=== PATIENT | female | born 1975 | race Caucasian/White ===

== ENCOUNTER → 2019-06-26 | Outpatient (CLI) | payer BC | END | disposition home or self-care (01) | LOC: SURGPAT 10:00 → SURG 14:58 → EDSTATUS 06-30 07:30 | PROVIDERS: ATTEND Internal Medicine Gastroenterology | DX: Z01.812 Encounter for preprocedural laboratory examination (principal); Z11.59 Encounter for screening for other viral diseases; K92.1 Melena; R19.7 Diarrhea, unspecified | CPT/HCPCS: 36415; 87635 ==

== ENCOUNTER → 2019-06-30 | Day surgery (SDC) | payer BC ==
[~2019-06-30] MED LIST: IV RINGERS,LACTATED 1000ML 1,000 ML IV SCH; PIPERACILLIN/TAZOBACTAM 3.375 GM in IV NORMAL SALINE 50ML 50 ML IV ONE; PROPOFOL 10 MG/ML (20ML) VIAL. IV ONE
[2019-06-30 08:47] VITALS: BP 131/63
--- NOTE | 2019-07-03 13:07 | PATHOLOGY ---
[facility] Accession Number: [id number] . 01 Material submitted: . PART A: duodenum - DUODENAL BX PART B: cecum - CECAL POLYP PART C: colon - RANDOM COLON BX . 01 Clinical history: . abd pain, diarrhea . 02 Diagnosis: A. Duodenal biopsies: - No significant pathologic abnormalities. . B. Colon biopsies, cecal polyp: - Tubular adenoma. . C. Colonic mucosa, random colon biopsies: - Suggestive of microscopic (lymphocytic) colitis. (JPM:ruthann; 07/03/2019) [facility] [place] 07/03/2019 0959 Local . 02 Comment: Sections of the duodenal biopsy reveal multiple segments of duodenal and small intestine mucosa. Where best oriented, the mucosal villi show no sprue-like changes or significant inflammatory changes. . Sections of the cecal biopsy reveal a tubular adenoma showing no high-grade dysplasia or evidence of malignancy. . Sections of the random colon biopsy reveal multiple segments of colonic mucosa. There is a mild chronic active colitis without crypt architectural distortion or collagen deposition. Intraepithelial lymphocytes are increased. These changes are consistent with microscopic (lymphocytic) colitis. However, the diagnosis requires clinico- pathologic correlation. (JPM:ruthann; 07/03/2019) . 02 Electronically signed: . Aidan Máruqez MD, Pathologist NPI- [id number] . 01 Gross description: . A. The specimen is received in formalin labeled "DoveFranny martinez, duodenal BX rule out sprue" and consists of multiple fragments of pink-lopez tissue measuring 1.6 x 0.6 x 0.2 cm in aggregate which are entirely submitted in A1. . B. The specimen is received in formalin labeled "Dove, Franny, cecal polyp" and consists of 2 fragments of pink-lopez tissue measuring 0.2 x 0.2 x 0.2 cm and 0.4 x 0.3 x 0.2 cm which are entirely submitted in B1. . C. The specimen is received in formalin labeled "Dove, Franny, random colon BX" and consists of multiple fragments of pink-lopez tissue measuring 1.4 x 0.9 x 0.2 cm in aggregate which are entirely submitted in C1. (EDYTA; 06/30/2019) JFQ/JFQ 06/30/2019 1458 Local . 02 Pathologist provided ICD-10: D12.0, R10.9, R19.7 . 02 CPT . 047019, [id number], [id number] Specimen Comment: A courtesy copy of this report has been sent to [phone] Specimen Comment: Report sent to Performed at: 01 [facility] [address] [id number] MD Kd Barcenas MD Phone: [phone] Performed at: [address] [facility] [address] [place], [place] [id number] MD Aidan Márquez MD Phone: [phone]
== END | disposition home or self-care (01) ==
LOC: ENDOS 06:25
PROVIDERS: ATTEND Internal Medicine Gastroenterology
DX: R19.7 Diarrhea, unspecified (principal); D12.0 Benign neoplasm of cecum; K57.30 Diverticulosis of large intestine without perforation or abscess without bleeding; K31.89 Other diseases of stomach and duodenum; F15.90 Other stimulant use, unspecified, uncomplicated; K64.0 First degree hemorrhoids; F17.210 Nicotine dependence, cigarettes, uncomplicated; Z88.1 Allergy status to other antibiotic agents; Z88.8 Allergy status to other drugs, medicaments and biological substances; Z86.010 Personal history of colon polyps; Z72.89 Other problems related to lifestyle; Z90.49 Acquired absence of other specified parts of digestive tract
CPT/HCPCS: 43239; 45380; 81025; 88305; J2704

== ENCOUNTER 2019-07-04 15:51 | Inpatient (IN) | payer BC ==
[~2019-07-04] VITALS: Ht 162.6 cm; Wt 68.0 kg
[2019-07-04] MEDS ORDERED: ONDANSETRON PF 4 MG/2 ML VIAL. IVP ONE (16:45)
[2019-07-04] MEDS ORDERED: MORPHINE SULFATE 10 MG/ML VIAL. IV ONE (16:45)
[2019-07-04 17:19] LABS: BASO % 0 % (0-3); EOS # 0.1 x10^3/uL (0.0-0.7); EOS % 1 % (0-3); HEMATOCRIT 47.1 % (36.0-47.0); HEMOGLOBIN 16.1 g/dL (12.0-15.5); LYMPH # 1.5 x10^3/uL (1.0-4.8); LYMPH % 17 % (24-48); MEAN CORPUSCULAR HEMOGLOBIN 31 pg (25-35); MEAN CORPUSCULAR HGB CONC 34 g/dL (31-37); MEAN CORPUSCULAR VOLUME 92 fL (79-100); MONO # 0.7 x10^3/uL (0.0-1.1); MONO % 8 % (0-9); NEUT # 6.3 x10^3/uL (1.8-7.7); NEUT % 73 % (31-73); PLATELET COUNT 300 x10^3/uL (140-400); RED BLOOD COUNT 5.13 x10^6/uL (3.50-5.40); RED CELL DISTRIBUTION WIDTH 13.3 % (11.5-14.5); WHITE BLOOD COUNT 8.6 x10^3/uL (4.0-11.0)
[2019-07-04 17:28] LABS: CLARITY,URINE HAZY; COLOR,URINE YELLOW; SQUAMOUS EPITHELIAL CELL,UR MANY /LPF
[2019-07-04 17:29] LABS: BILIRUBIN,URINE NEGATIVE (NEG)
[2019-07-04 17:30] LABS: AMORPHOUS SEDIMENT,UR PRESENT /HPF; BACTERIA,URINE MOD /HPF (0-FEW); NITRITE,URINE NEGATIVE (NEG); PROTEIN,URINE TRACE mg/dL (NEG-TRACE); UROBILINOGEN,URINE 0.2 mg/dL (0.2 mg/dL)
[2019-07-04 17:33] LABS: BARBITURATES NEG (NEG); BENZODIAZEPINES NEG (NEG); CANNABINOIDS NEG (NEG); COCAINE NEG (NEG); METHADONE NEG (NEG); OPIATES NEG (NEG); PHENCYCLIDINE NEG (NEG)
[2019-07-04 17:40] LABS: AMPHETAMINE/METHAMPHETAMINE NEG (NEG)
[2019-07-04 17:40] LABS: CALCIUM 8.8 mg/dL (8.5-10.1); CREATININE 0.7 mg/dL (0.6-1.0); GFR 91.3; POTASSIUM 3.7 mmol/L (3.5-5.1)
[2019-07-04] MEDS ORDERED: IOHEXOL 300 MG/ML 100ML VIAL. IV ONE (17:45)
[2019-07-04 17:46] LABS: ALBUMIN 3.9 g/dL (3.4-5.0); ALBUMIN/GLOBULIN RATIO 1.2 (1.0-1.7); TOTAL BILIRUBIN 1.2 mg/dL (0.2-1.0); TOTAL PROTEIN 7.1 g/dL (6.4-8.2)
[2019-07-04] MEDS ORDERED: CONTRAST GIVEN. MC PRN (18:00)
--- NOTE | 2019-07-04 18:20 | RAD ---
CT abdomen pelvis with contrast dated 07/04/2019. No comparison available. CLINICAL INDICATION: Chronic diarrhea and abdominal pain for one day. TECHNIQUE: Contiguous axial imaging the abdomen and pelvis performed after the administration of 75 cc Omnipaque 300. One or more of the following individualized dose reduction techniques were utilized for this examination: 1. Automated exposure control 2. Adjustment of the mA and/or kV according to patient size 3. Use of iterative reconstruction technique. FINDINGS: Limited images of lung bases are clear. Heart size within normal limits. No pleural or pericardial effusion. Liver, spleen, pancreas, adrenal glands and kidneys are unremarkable. No hydronephrosis. The gallbladder surgically absent. There is a ileocolonic intussusception in the right upper quadrant. No definite bleed mass. The appendix is normal in caliber. The ileocolic vessels are displaced into the intussusceptum no adjacent fluid collection or pneumatosis. No portal venous gas or pneumoperitoneum. GI tract is otherwise normal in caliber. No significant small bowel dilation. No wall thickening or mesenteric inflammatory stranding. No lymphadenopathy or ascites. Images of the pelvis show nondistended urinary bladder. Uterus and adnexa are unremarkable. Small amount of free fluid. No pelvic lymphadenopathy. Bone windows show no acute findings. IMPRESSION: 1. There is a ileocolonic intussusception in the right lower quadrant. No definite bleed mass. No significant proximal small bowel dilation to suggest obstruction. 2. Small amount of free fluid. No pneumoperitoneum or pneumatosis. 3. Otherwise no significant abnormality. 4. Status post cholecystectomy. Electronically signed by: Filemon Whitfield MD (07/04/2019 6:17 PM) TRUNG
--- NOTE | 2019-07-04 19:28 | PHYS DOC ---
Past Medical History Past Medical History: Diverticulitis Past Surgical History: Cholecystectomy Additional Past Surgical Histo: d&c X2, HEMMORHOIDECTOMY Smoking Status: Current Every Day Smoker Alcohol Use: Occasionally General Adult EDM: Chief Complaint: ABDOMINAL PAIN HPI: HPI: Patient is a 44 year old female with history of diverticulitis, cholecystectomy, who presents to the ED today complaining of 5 out of 10 epigastric abdominal pain that has been going on since yesterday. Patient sta erum this pain does not feel similar to her chronic abdominal pain. Denies any nausea vomiting. Denies any exacerbating or relieving factors to her pain. She states she has history of chronic diarrhea, she states she had a colonoscopy done on Wednesday which is 4 days ago but she does not know results. Denies any bloody stools. She is also complaining of vomiting. She states her last bowel movement was a couple minutes ago on arrival to the ED. Review of Systems: Review of Systems: Constitutional: Denies fever or chills. [] Eyes: Denies change in visual acuity. [] HENT: Denies nasal congestion or sore throat. [] Respiratory: Denies cough or shortness of breath. [] Cardiovascular: Denies chest pain or edema. [] GI: Reports epigastric abdominal pain, chronic diarrhea denies nausea, vomiting, bloody stools : Denies dysuria. [] Musculoskeletal: Denies back pain or joint pain. [] Integument: Denies rash. [] Neurologic: Denies headache, focal weakness or sensory changes. [] Psychiatric: Denies depression or anxiety. [] Heart Score: Risk Factors: Risk Factors: DM, Current or recent (<one month) smoker, HTN, HLP, family history of CAD, obesity. Risk Scores: Score 0 - 3: 2.5% MACE over next 6 weeks - Discharge Home Score 4 - 6: 20.3% MACE over next 6 weeks - Admit for Clinical Observation Score 7 - 10: 72.7% MACE over next 6 weeks - Early Invasive Strategies Current Medications: Current Medications Medications (Trade) Dose Ordered Sig/Rommel Start Time Stop Time Status Last Admin Dose Admin Info (CONTRAST GIVEN -- Rx MONITORING) 1 each PRN DAILY PRN 07/04/19 18:00 07/06/19 17:59 Iohexol (Omnipaque 300 Mg/ml) 75 ml 1X ONCE 07/04/19 17:45 07/04/19 17:46 DC 07/04/19 18:06 75 ML Morphine Sulfate (Morphine Sulfate) 5 mg 1X ONCE 07/04/19 16:45 07/04/19 16:46 DC 07/04/19 17:03 5 MG Ondansetron HCl (Zofran) 4 mg 1X ONCE 07/04/19 16:45 07/04/19 16:46 DC 07/04/19 17:02 4 MG Allergies: Allergies: Allergies Coded Allergies Type Severity Reaction Last Updated Verified Sulfa (Sulfonamide Antibiotics) Allergy Severe 06/30/19 Yes cefaclor Allergy Severe Hives 06/30/19 Yes Physical Exam: PE: Constitutional: Well developed, well nourished, no acute distress, non-toxic appearance. [] HENT: Normocephalic, atraumatic, bilateral external ears normal, oropharynx moist, no oral exudates, nose normal. [] Eyes: PERRLA, EOMI, conjunctiva normal, no discharge. [] Neck: Normal range of motion, no tenderness, supple, no stridor. [] Cardiovascular:Heart rate regular rhythm, no murmur [] Lungs & Thorax: Bilateral breath sounds clear to auscultation [] Abdomen: Bowel sounds normal, soft, mild epigastric tenderness on exam, no right upper quadrant or right lower quadrant tenderness, patient is febrile in the epigastric region no masses, no pulsatile masses. [] Skin: Warm, dry, no erythema, no rash. [] Back: No tenderness, no CVA tenderness. [] Extremities: No tenderness, no cyanosis, no clubbing, ROM intact, no edema. [] Neurologic: Alert and oriented X 3, normal motor function, normal sensory function, no focal deficits noted. [] Psychologic: Flat affect, appears tearful Current Patient Data: Labs: Laboratory Tests Test 07/04/19 15:58 07/04/19 16:17 07/04/19 16:55 07/04/19 17:20 Urine Collection Type Unknown Urine Color Yellow Urine Clarity Hazy Urine pH 6.0 (<5.0-8.0) Urine Specific [place] >=1.030 (1.000-1.030) Urine Protein Trace mg/dL (NEG-TRACE) Urine Glucose (UA) Negative mg/dL (NEG) Urine Ketones (Stick) Negative mg/dL (NEG) Urine Blood Moderate (NEG) Urine Nitrite Negative (NEG) Urine Bilirubin Negative (NEG) Urine Urobilinogen Dipstick 0.2 mg/dL (0.2 mg/dL) Urine Leukocyte Esterase Moderate (NEG) Urine RBC 6-10 /HPF (0-2) Urine WBC 5-10 /HPF (0-4) Urine Squamous Epithelial Cells Many /LPF Urine Amorphous Sediment Present /HPF Urine Bacteria Mod /HPF (0-FEW) Urine Mucus Mod /LPF Urine Opiates Screen Neg (NEG) Urine Methadone Screen Neg (NEG) Urine Barbiturates Neg (NEG) Urine Phencyclidine Screen Neg (NEG) Urine Amphetamine/Methamphetamine Neg (NEG) Urine Benzodiazepines Screen Neg (NEG) Urine Cocaine Screen Neg (NEG) Urine Cannabinoids Screen Neg (NEG) Urine Ethyl Alcohol Neg (NEG) POC Urine HCG, Qualitative Hcg negative (Negative) White Blood Count 8.6 x10^3/uL (4.0-11.0) Red Blood Count 5.13 x10^6/uL (3.50-5.40) Hemoglobin 16.1 g/dL (12.0-15.5) H Hematocrit 47.1 % (36.0-47.0) H Mean Corpuscular Volume 92 fL (79-100) Mean Corpuscular Hemoglobin 31 pg (25-35) Mean Corpuscular Hemoglobin Concent 34 g/dL (31-37) Red Cell Distribution Width 13.3 % (11.5-14.5) Platelet Count 300 x10^3/uL (140-400) Neutrophils (%) (Auto) 73 % (31-73) Lymphocytes (%) (Auto) 17 % (24-48) L Monocytes (%) (Auto) 8 % (0-9) Eosinophils (%) (Auto) 1 % (0-3) Basophils (%) (Auto) 0 % (0-3) Neutrophils # (Auto) 6.3 x10^3/uL (1.8-7.7) Lymphocytes # (Auto) 1.5 x10^3/uL (1.0-4.8) Monocytes # (Auto) 0.7 x10^3/uL (0.0-1.1) Eosinophils # (Auto) 0.1 x10^3/uL (0.0-0.7) Basophils # (Auto) 0.0 x10^3/uL (0.0-0.2) Sodium Level 136 mmol/L (136-145) Potassium Level 3.7 mmol/L (3.5-5.1) Chloride Level 102 mmol/L (98-107) Carbon Dioxide Level 23 mmol/L (21-32) Anion Gap 11 (6-14) Blood Urea Nitrogen 20 mg/dL (7-20) Creatinine 0.7 mg/dL (0.6-1.0) Estimated GFR (Cockcroft-Gault) 91.3 BUN/Creatinine Ratio 29 (6-20) H Glucose Level 88 mg/dL (70-99) Calcium Level 8.8 mg/dL (8.5-10.1) Total Bilirubin 1.2 mg/dL (0.2-1.0) H Aspartate Amino Transferase (AST) 15 U/L (15-37) Alanine Aminotransferase (ALT) 22 U/L (14-59) Alkaline Phosphatase 39 U/L (46-116) L Total Protein 7.1 g/dL (6.4-8.2) Albumin 3.9 g/dL (3.4-5.0) Albumin/Globulin Ratio 1.2 (1.0-1.7) Lipase 133 U/L (73-393) Ethyl Alcohol Level < 10 mg/dL (0-10) Laboratory Tests 07/04/19 16:55 Laboratory Tests 07/04/19 17:20 Vital Signs: Vital Signs Date Time Temp Pulse Resp B/P (MAP) Pulse Ox O2 Delivery O2 Flow Rate FiO2 07/04/19 17:47 102 21 141/66 (91) 98 Room Air 07/04/19 16:33 98.0 98.0 EKG: EKG: [] Radiology/Procedures: Radiology/Procedures: []PROCEDURE: CT ABD PELV W/ IV CONTRST ONLY CT abdomen pelvis with contrast dated 07/04/2019. No comparison available. CLINICAL INDICATION: Chronic diarrhea and abdominal pain for one day. TECHNIQUE: Contiguous axial imaging the abdomen and pelvis performed after the administration of 75 cc Omnipaque 300. One or more of the following individualized dose reduction techniques were utilized for this examination: 1. Automated exposure control 2. Adjustment of the mA and/or kV according to patient size 3. Use of iterative reconstruction technique. FINDINGS: Limited images of lung bases are clear. Heart size within normal limits. No pleural or pericardial effusion. Liver, spleen, pancreas, adrenal glands and kidneys are unremarkable. No hydronephrosis. The gallbladder surgically absent. There is a ileocolonic intussusception in the right upper quadrant. No definite bleed mass. The appendix is normal in caliber. The ileocolic vessels are displaced into the intussusceptum no adjacent fluid collection or pneumatosis. No portal venous gas or pneumoperitoneum. GI tract is otherwise normal in caliber. No significant small bowel dilation. No wall thickening or mesenteric inflammatory stranding. No lymphadenopathy or ascites. Images of the pelvis show nondistended urinary bladder. Uterus and adnexa are unremarkable. Small amount of free fluid. No pelvic lymphadenopathy. Bone windows show no acute findings. IMPRESSION: 1. There is a ileocolonic intussusception in the right lower quadrant. No definite bleed mass. No significant proximal small bowel dilation to suggest obstruction. 2. Small amount of free fluid. No pneumoperitoneum or pneumatosis. 3. Otherwise no significant abnormality. 4. Status post cholecystectomy. Electronically signed by: Filemon Whitfield MD (07/04/2019 6:17 PM) [facility] [place] DICTATED and SIGNED BY: FILEMON WHITFIELD MD DATE: 07/04/191816 Course & Med Decision Making: Course & Med Decision Making Pertinent Labs and Imaging studies reviewed. (See chart for details) This is a 44-year-old female patient presenting to the ED today complaining of epigastric abdominal pain that began yesterday. Patient has history of chronic abdominal pain as well as chronic diarrhea, she reports having a colonoscopy 4 days ago but does not know the results. CBC with a normal WBC, CMP with nothing acute. Urine analysis noted for UTI. CT of the abdomen and pelvic was noted for ileocolonic intussusception in the right lower quadrant. No definite bleed mass. No significant proximal small bowel dilation to suggest obstruction. Small amount of free fluid. No pneumoperitoneum or pneumatosis. Otherwise no significant abnormality. 2019 Dr. Kern in the Ed seeing patient [address] Garcia who accepted patient for admission Marisela Disclaimer: Marisela Disclaimer: This electronic medical record was generated, in whole or in part, using a voice recognition dictation system. Departure Departure Impression: Primary Impression: Abdominal pain Qualified Codes: R10.13 - Epigastric pain Additional Impression: Intussusception intestine Disposition: 09 ADMITTED INPATIENT Condition: STABLE Referrals: NO PCP (PCP) LYNSEY YAO APRN July 04, 2019 19:27
[2019-07-04] MEDS ORDERED: HYDROmorphone 2 MG/ML VIAL IV ONE (19:45)
--- NOTE | 2019-07-04 20:43 | PDOC2 ---
CONSULT Date of Consult Date of Consult DATE: 07/04/19 TIME: 20:34 Reason for Consult Reason for Consult: ileo-colic intususseption Referring Physician Referring Physician: SALVADOR Identification/Chief Complaint Chief Complaint right sided abdominal pain Source Source: Chart review, Patient History of Present Illness Reason for Visit: Franny is a 44 yo female who four days ago had an EGD and a colonoscopy with biopsy of a cecal polyp. She had increasing right sided abdominal pain unlike the chronic pain issues she has dealt with before so she came to the ED. CT done here shows an ileo-colic intersusseption. Past Medical History Past Medical History endometriosis Cardiovascular: No pertinent hx Pulmonary: No pertinent hx Renal/: No pertinent hx Past Surgical History Past Surgical History: Other (laparoscopy for endometriosis and biopsy of her "pelvic organs", all benign findings) Social History 1 pack per day Current Medications Current Medications only home meds are multiple vitamin and melatonin Current Medications Morphine Sulfate (Morphine Sulfate) 5 mg 1X ONCE IV Last administered on 07/04/19at 17:03; Start 07/04/19 at 16:45; Stop 07/04/19 at 16:46; Status DC Ondansetron HCl (Zofran) 4 mg 1X ONCE IVP Last administered on 07/04/19at 17:02; Start 07/04/19 at 16:45; Stop 07/04/19 at 16:46; Status DC Iohexol (Omnipaque 300 Mg/ml) 75 ml 1X ONCE IV Last administered on 07/04/19at 18:06; Start 07/04/19 at 17:45; Stop 07/04/19 at 17:46; Status DC Info (CONTRAST GIVEN -- Rx MONITORING) 1 each PRN DAILY PRN MC SEE COMMENTS; Start 07/04/19 at 18:00; Stop 07/06/19 at 17:59 Hydromorphone HCl (Dilaudid) 1 mg 1X ONCE IV Last administered on 07/04/19at 19:52; Start 07/04/19 at 19:45; Stop 07/04/19 at 19:46; Status DC Piperacillin Sod/ Tazobactam Sod 3.375 gm/Sodium Chloride 50 ml @ 100 mls/hr 1X ONCE IV ; Start 07/04/19 at 20:45; Stop 07/04/19 at 21:14 Active Scripts Active Reported No Known Medications Prior To Admisstion (Info) Each 1 Each DAILY Allergies Allergies: Coded Allergies: Sulfa (Sulfonamide Antibiotics) (Verified Allergy, Severe, 06/30/19) cefaclor (Verified Allergy, Severe, Hives, 06/30/19) ROS Gastrointestinal: Yes Nausea, Yes Abdominal Pain, Yes Melena Physical Exam General: Alert, mild distress HEENT: Atraumatic Lungs: Normal air movement Heart: Other (increased rate) Abdomen: Soft, Other (tender mass palpable on the right side) Skin: Other (warm, dry) Vitals VITALS Vital Signs Date Time Temp Pulse Resp B/P (MAP) Pulse Ox O2 Delivery O2 Flow Rate FiO2 07/04/19 19:52 Room Air 07/04/19 17:47 102 21 141/66 (91) 98 07/04/19 16:33 98.0 98.0 Labs Labs Laboratory Tests Test 07/04/19 15:58 07/04/19 16:17 07/04/19 16:55 07/04/19 17:20 Urine Collection Type Unknown Urine Color Yellow Urine Clarity Hazy Urine pH 6.0 (<5.0-8.0) Urine Specific [place] >=1.030 (1.000-1.030) Urine Protein Trace mg/dL (NEG-TRACE) Urine Glucose (UA) Negative mg/dL (NEG) Urine Ketones (Stick) Negative mg/dL (NEG) Urine Blood Moderate (NEG) Urine Nitrite Negative (NEG) Urine Bilirubin Negative (NEG) Urine Urobilinogen Dipstick 0.2 mg/dL (0.2 mg/dL) Urine Leukocyte Esterase Moderate (NEG) Urine RBC 6-10 /HPF (0-2) Urine WBC 5-10 /HPF (0-4) Urine Squamous Epithelial Cells Many /LPF Urine Amorphous Sediment Present /HPF Urine Bacteria Mod /HPF (0-FEW) Urine Mucus Mod /LPF Urine Opiates Screen Neg (NEG) Urine Methadone Screen Neg (NEG) Urine Barbiturates Neg (NEG) Urine Phencyclidine Screen Neg (NEG) Urine Amphetamine/Methamphetamine Neg (NEG) Urine Benzodiazepines Screen Neg (NEG) Urine Cocaine Screen Neg (NEG) Urine Cannabinoids Screen Neg (NEG) Urine Ethyl Alcohol Neg (NEG) Bedside Urine HCG, Qualitative Hcg negative (Negative) White Blood Count 8.6 x10^3/uL (4.0-11.0) Red Blood Count 5.13 x10^6/uL (3.50-5.40) Hemoglobin 16.1 g/dL (12.0-15.5) Hematocrit 47.1 % (36.0-47.0) Mean Corpuscular Volume 92 fL (79-100) Mean Corpuscular Hemoglobin 31 pg (25-35) Mean Corpuscular Hemoglobin Concent 34 g/dL (31-37) Red Cell Distribution Width 13.3 % (11.5-14.5) Platelet Count 300 x10^3/uL (140-400) Neutrophils (%) (Auto) 73 % (31-73) Lymphocytes (%) (Auto) 17 % (24-48) Monocytes (%) (Auto) 8 % (0-9) Eosinophils (%) (Auto) 1 % (0-3) Basophils (%) (Auto) 0 % (0-3) Neutrophils # (Auto) 6.3 x10^3/uL (1.8-7.7) Lymphocytes # (Auto) 1.5 x10^3/uL (1.0-4.8) Monocytes # (Auto) 0.7 x10^3/uL (0.0-1.1) Eosinophils # (Auto) 0.1 x10^3/uL (0.0-0.7) Basophils # (Auto) 0.0 x10^3/uL (0.0-0.2) Sodium Level 136 mmol/L (136-145) Potassium Level 3.7 mmol/L (3.5-5.1) Chloride Level 102 mmol/L (98-107) Carbon Dioxide Level 23 mmol/L (21-32) Anion Gap 11 (6-14) Blood Urea Nitrogen 20 mg/dL (7-20) Creatinine 0.7 mg/dL (0.6-1.0) Estimated GFR (Cockcroft-Gault) 91.3 BUN/Creatinine Ratio 29 (6-20) Glucose Level 88 mg/dL (70-99) Calcium Level 8.8 mg/dL (8.5-10.1) Total Bilirubin 1.2 mg/dL (0.2-1.0) Aspartate Amino Transf (AST/SGOT) 15 U/L (15-37) Alanine Aminotransferase (ALT/SGPT) 22 U/L (14-59) Alkaline Phosphatase 39 U/L (46-116) Total Protein 7.1 g/dL (6.4-8.2) Albumin 3.9 g/dL (3.4-5.0) Albumin/Globulin Ratio 1.2 (1.0-1.7) Lipase 133 U/L (73-393) Ethyl Alcohol Level < 10 mg/dL (0-10) Laboratory Tests Test 07/04/19 15:58 07/04/19 16:17 07/04/19 16:55 07/04/19 17:20 Urine Collection Type Unknown Urine Color Yellow Urine Clarity Hazy Urine pH 6.0 (<5.0-8.0) Urine Specific [place] >=1.030 (1.000-1.030) Urine Protein Trace mg/dL (NEG-TRACE) Urine Glucose (UA) Negative mg/dL (NEG) Urine Ketones (Stick) Negative mg/dL (NEG) Urine Blood Moderate (NEG) Urine Nitrite Negative (NEG) Urine Bilirubin Negative (NEG) Urine Urobilinogen Dipstick 0.2 mg/dL (0.2 mg/dL) Urine Leukocyte Esterase Moderate (NEG) Urine RBC 6-10 /HPF (0-2) Urine WBC 5-10 /HPF (0-4) Urine Squamous Epithelial Cells Many /LPF Urine Amorphous Sediment Present /HPF Urine Bacteria Mod /HPF (0-FEW) Urine Mucus Mod /LPF Urine Opiates Screen Neg (NEG) Urine Methadone Screen Neg (NEG) Urine Barbiturates Neg (NEG) Urine Phencyclidine Screen Neg (NEG) Urine Amphetamine/Methamphetamine Neg (NEG) Urine Benzodiazepines Screen Neg (NEG) Urine Cocaine Screen Neg (NEG) Urine Cannabinoids Screen Neg (NEG) Urine Ethyl Alcohol Neg (NEG) Bedside Urine HCG, Qualitative Hcg negative (Negative) White Blood Count 8.6 x10^3/uL (4.0-11.0) Red Blood Count 5.13 x10^6/uL (3.50-5.40) Hemoglobin 16.1 g/dL (12.0-15.5) Hematocrit 47.1 % (36.0-47.0) Mean Corpuscular Volume 92 fL (79-100) Mean Corpuscular Hemoglobin 31 pg (25-35) Mean Corpuscular Hemoglobin Concent 34 g/dL (31-37) Red Cell Distribution Width 13.3 % (11.5-14.5) Platelet Count 300 x10^3/uL (140-400) Neutrophils (%) (Auto) 73 % (31-73) Lymphocytes (%) (Auto) 17 % (24-48) Monocytes (%) (Auto) 8 % (0-9) Eosinophils (%) (Auto) 1 % (0-3) Basophils (%) (Auto) 0 % (0-3) Neutrophils # (Auto) 6.3 x10^3/uL (1.8-7.7) Lymphocytes # (Auto) 1.5 x10^3/uL (1.0-4.8) Monocytes # (Auto) 0.7 x10^3/uL (0.0-1.1) Eosinophils # (Auto) 0.1 x10^3/uL (0.0-0.7) Basophils # (Auto) 0.0 x10^3/uL (0.0-0.2) Sodium Level 136 mmol/L (136-145) Potassium Level 3.7 mmol/L (3.5-5.1) Chloride Level 102 mmol/L (98-107) Carbon Dioxide Level 23 mmol/L (21-32) Anion Gap 11 (6-14) Blood Urea Nitrogen 20 mg/dL (7-20) Creatinine 0.7 mg/dL (0.6-1.0) Estimated GFR (Cockcroft-Gault) 91.3 BUN/Creatinine Ratio 29 (6-20) Glucose Level 88 mg/dL (70-99) Calcium Level 8.8 mg/dL (8.5-10.1) Total Bilirubin 1.2 mg/dL (0.2-1.0) Aspartate Amino Transf (AST/SGOT) 15 U/L (15-37) Alanine Aminotransferase (ALT/SGPT) 22 U/L (14-59) Alkaline Phosphatase 39 U/L (46-116) Total Protein 7.1 g/dL (6.4-8.2) Albumin 3.9 g/dL (3.4-5.0) Albumin/Globulin Ratio 1.2 (1.0-1.7) Lipase 133 U/L (73-393) Ethyl Alcohol Level < 10 mg/dL (0-10) Images Images CT done this evening is reviewed Assessment/Plan Assessment/Plan ileo-colic intususseption recommended l/s exploration, probable right colon resection explained risks including but not limited to bleeding, infection,injury to surrounding structures requiring more surgery later, anastomotic leak she will proceed Thanks for consult NETO STONE MD July 04, 2019 20:43
[2019-07-04] MEDS ORDERED: PIPERACILLIN/TAZOBACTAM 3.375 GM in IV NORMAL SALINE 50ML 50 ML IV ONE (20:45)
[2019-07-04] MEDS ORDERED: ONDANSETRON PF 4 MG/2 ML VIAL. IV PRN ×2 (20:45→21:00)
[2019-07-04] MEDS ORDERED: IV NORMAL SALINE 1000ML BAG 1,000 ML IV ONE (20:45)
[2019-07-04] MEDS ORDERED: MORPHINE SULFATE 4 MG/ML VIAL. IV PRN (20:45)
[2019-07-04] MEDS ORDERED: LIDOCAINE 2% PF 5 ML VIAL. ONE (20:58)
[2019-07-04] MEDS ORDERED: fentaNYL PF VIAL 100 MCG/2 ML VIAL ONE ×2 (20:58→22:51)
[2019-07-04] MEDS ORDERED: ROCURONIUM 50 MG/5 ML VIAL. ONE (20:58)
[2019-07-04] MEDS ORDERED: PROPOFOL 10 MG/ML (20ML) VIAL. IV ONE (20:58)
[2019-07-04] MEDS ORDERED: IV RINGERS,LACTATED 1000ML 1,000 ML IV SCH (20:59)
[2019-07-04] MEDS ORDERED: LIDOCAINE 1% PF 2 ML VIAL. ID PRN (21:00)
[2019-07-04] MEDS ORDERED: HYDROmorphone 2 MG/ML VIAL IV PRN (21:00)
[2019-07-04] MEDS ORDERED: fentaNYL PF VIAL 100 MCG/2 ML VIAL IV PRN (21:00)
[2019-07-04] MEDS ORDERED: BUPIVACAINE-EPI 0.5%-1:200000 MPF 30 ML VIAL. ONE (21:30)
[2019-07-04] MEDS ORDERED: ACETAMINOPHEN 325 MG TABLET. PO PRN (21:30)
--- NOTE | 2019-07-04 22:07 | PDOC1 ---
History and Physical Date of Admission Date of Admission DATE: 07/04/19 TIME: 21:53 Identification/Chief Complaint Chief Complaint abdominal pain Problems: (1) Abdominal pain (2) Intussusception intestine Source Source: Chart review, Patient History of Present Illness History of Present Illness 44 year old CF with hx of cholecystectomy, endometriosis, chronic diarrhea, s/p EGD and colo with poly in cecum who presents with 24 hrs of abdominal pain in RLQ, nonradiating. denies nausea or vomitting. reports diarrhea but that has been chronic per patient. no fever. patient reports diarrhea worse when she eats. prior surgical hx: cholecystecomy, breast implants, D and C, 4 prior miscarriages, hemorrhoidectomy. CT in ED revealed the followin. There is a ileocolonic intussusception in the right lower quadrant. N definite bleed mass. No significant proximal small bowel dilation to suggest obstruction. 2. Small amount of free fluid. No pneumoperitoneum or pneumatosis. 3. Otherwise no significant abnormality. 4. Status post cholecystectomy. labs stable otherwise. gen sx consulted in ED, hospitalist called for admission. Past Medical History Cardiovascular: No pertinent hx Pulmonary: No pertinent hx Renal/: No pertinent hx Past Surgical History Past Surgical History: Other (laparoscopy for endometriosis and biopsy of her "pelvic organs", all benign findings) Family History Family History reviewed and denies Social History Smoke: No ALCOHOL: none Drugs: None Current Problem List Problem List Problems Medical Problems: (1) Intussusception intestine Status: Acute Current Medications Current Medications Current Medications Morphine Sulfate (Morphine Sulfate) 5 mg 1X ONCE IV Last administered on 07/04/19at 17:03; Start 07/04/19 at 16:45; Stop 07/04/19 at 16:46; Status DC Ondansetron HCl (Zofran) 4 mg 1X ONCE IVP Last administered on 07/04/19at 17:02; Start 07/04/19 at 16:45; Stop 07/04/19 at 16:46; Status DC Iohexol (Omnipaque 300 Mg/ml) 75 ml 1X ONCE IV Last administered on 07/04/19at 18:06; Start 07/04/19 at 17:45; Stop 07/04/19 at 17:46; Status DC Info (CONTRAST GIVEN -- Rx MONITORING) 1 each PRN DAILY PRN MC SEE COMMENTS; Start 07/04/19 at 18:00; Stop 07/06/19 at 17:59 Hydromorphone HCl (Dilaudid) 1 mg 1X ONCE IV Last administered on 07/04/19at 19:52; Start 07/04/19 at 19:45; Stop 07/04/19 at 19:46; Status DC Piperacillin Sod/ Tazobactam Sod 3.375 gm/Sodium Chloride 50 ml @ 100 mls/hr 1X ONCE IV ; Start 07/04/19 at 20:45; Stop 07/04/19 at 21:14 Ondansetron HCl (Zofran) 4 mg PRN Q8HRS PRN IV NAUSEA/VOMITING; Start 07/04/19 at 20:45; Stop 07/05/19 at 20:44 Morphine Sulfate (Morphine Sulfate) 4 mg PRN Q2HR PRN IV PAIN; Start 07/04/19 at 20:45; Stop 07/05/19 at 20:44 Sodium Chloride 1,000 ml @ 125 mls/hr 1X ONCE IV ; Start 07/04/19 at 20:45; Stop 07/05/19 at 04:44 Active Scripts Active Reported No Known Medications Prior To Admisstion (Info) Each 1 Each DAILY Allergies Allergies: Coded Allergies: Sulfa (Sulfonamide Antibiotics) (Verified Allergy, Severe, 06/30/19) cefaclor (Verified Allergy, Severe, Hives, 06/30/19) ROS Review of System CONSTITUTIONAL: No fever or chills EYES: No recent changes SKIN: No rash or itching CARDIOVASCULAR: No chest pain, syncope, palpitations, or edema RESPIRATORY: No SOB or cough GASTROINTESTINAL: No nausea, vomiting or abdominal pain NEUROLOGICAL: No headaches or weakness ENDOCRINE: No cold or heat intolerance GENITOURINARY: No urgency or frequency of urination MUSCULOSKELETAL: No back pain or joint pain LYMPHATICS: No enlarged lymph nodes PSYCHIATRIC: No anxiety or depression Physical Exam Physical Exam GENERAL: No apparent distress. Alert and oriented. HEENT: Head normocephalic, atraumatic. NECK: Supple LUNGS: Clear to auscultation. HEART: RRR, S1, S2 present, pulses intact ABDOMEN: diffusely tender EXTREMITIES: No cyanosis or edema. NEUROLOGIC: Normal speech, normal tone PSYCHIATRIC: Normal affect, normal mood. SKIN: No ulceration. Vitals Vitals Vital Signs Date Time Temp Pulse Resp B/P (MAP) Pulse Ox O2 Delivery O2 Flow Rate FiO2 07/04/19 19:52 Room Air 07/04/19 17:47 102 21 141/66 (91) 98 07/04/19 16:33 98.0 98.0 Labs Labs Laboratory Tests Test 07/04/19 15:58 07/04/19 16:17 07/04/19 16:55 07/04/19 17:20 Urine Collection Type Unknown Urine Color Yellow Urine Clarity Hazy Urine pH 6.0 (<5.0-8.0) Urine Specific [place] >=1.030 (1.000-1.030) Urine Protein Trace mg/dL (NEG-TRACE) Urine Glucose (UA) Negative mg/dL (NEG) Urine Ketones (Stick) Negative mg/dL (NEG) Urine Blood Moderate (NEG) Urine Nitrite Negative (NEG) Urine Bilirubin Negative (NEG) Urine Urobilinogen Dipstick 0.2 mg/dL (0.2 mg/dL) Urine Leukocyte Esterase Moderate (NEG) Urine RBC 6-10 /HPF (0-2) Urine WBC 5-10 /HPF (0-4) Urine Squamous Epithelial Cells Many /LPF Urine Amorphous Sediment Present /HPF Urine Bacteria Mod /HPF (0-FEW) Urine Mucus Mod /LPF Urine Opiates Screen Neg (NEG) Urine Methadone Screen Neg (NEG) Urine Barbiturates Neg (NEG) Urine Phencyclidine Screen Neg (NEG) Urine Amphetamine/Methamphetamine Neg (NEG) Urine Benzodiazepines Screen Neg (NEG) Urine Cocaine Screen Neg (NEG) Urine Cannabinoids Screen Neg (NEG) Urine Ethyl Alcohol Neg (NEG) Bedside Urine HCG, Qualitative Hcg negative (Negative) White Blood Count 8.6 x10^3/uL (4.0-11.0) Red Blood Count 5.13 x10^6/uL (3.50-5.40) Hemoglobin 16.1 g/dL (12.0-15.5) Hematocrit 47.1 % (36.0-47.0) Mean Corpuscular Volume 92 fL (79-100) Mean Corpuscular Hemoglobin 31 pg (25-35) Mean Corpuscular Hemoglobin Concent 34 g/dL (31-37) Red Cell Distribution Width 13.3 % (11.5-14.5) Platelet Count 300 x10^3/uL (140-400) Neutrophils (%) (Auto) 73 % (31-73) Lymphocytes (%) (Auto) 17 % (24-48) Monocytes (%) (Auto) 8 % (0-9) Eosinophils (%) (Auto) 1 % (0-3) Basophils (%) (Auto) 0 % (0-3) Neutrophils # (Auto) 6.3 x10^3/uL (1.8-7.7) Lymphocytes # (Auto) 1.5 x10^3/uL (1.0-4.8) Monocytes # (Auto) 0.7 x10^3/uL (0.0-1.1) Eosinophils # (Auto) 0.1 x10^3/uL (0.0-0.7) Basophils # (Auto) 0.0 x10^3/uL (0.0-0.2) Sodium Level 136 mmol/L (136-145) Potassium Level 3.7 mmol/L (3.5-5.1) Chloride Level 102 mmol/L (98-107) Carbon Dioxide Level 23 mmol/L (21-32) Anion Gap 11 (6-14) Blood Urea Nitrogen 20 mg/dL (7-20) Creatinine 0.7 mg/dL (0.6-1.0) Estimated GFR (Cockcroft-Gault) 91.3 BUN/Creatinine Ratio 29 (6-20) Glucose Level 88 mg/dL (70-99) Calcium Level 8.8 mg/dL (8.5-10.1) Total Bilirubin 1.2 mg/dL (0.2-1.0) Aspartate Amino Transf (AST/SGOT) 15 U/L (15-37) Alanine Aminotransferase (ALT/SGPT) 22 U/L (14-59) Alkaline Phosphatase 39 U/L (46-116) Total Protein 7.1 g/dL (6.4-8.2) Albumin 3.9 g/dL (3.4-5.0) Albumin/Globulin Ratio 1.2 (1.0-1.7) Lipase 133 U/L (73-393) Ethyl Alcohol Level < 10 mg/dL (0-10) Laboratory Tests Test 07/04/19 15:58 07/04/19 16:17 07/04/19 16:55 07/04/19 17:20 Urine Collection Type Unknown Urine Color Yellow Urine Clarity Hazy Urine pH 6.0 (<5.0-8.0) Urine Specific [place] >=1.030 (1.000-1.030) Urine Protein Trace mg/dL (NEG-TRACE) Urine Glucose (UA) Negative mg/dL (NEG) Urine Ketones (Stick) Negative mg/dL (NEG) Urine Blood Moderate (NEG) Urine Nitrite Negative (NEG) Urine Bilirubin Negative (NEG) Urine Urobilinogen Dipstick 0.2 mg/dL (0.2 mg/dL) Urine Leukocyte Esterase Moderate (NEG) Urine RBC 6-10 /HPF (0-2) Urine WBC 5-10 /HPF (0-4) Urine Squamous Epithelial Cells Many /LPF Urine Amorphous Sediment Present /HPF Urine Bacteria Mod /HPF (0-FEW) Urine Mucus Mod /LPF Urine Opiates Screen Neg (NEG) Urine Methadone Screen Neg (NEG) Urine Barbiturates Neg (NEG) Urine Phencyclidine Screen Neg (NEG) Urine Amphetamine/Methamphetamine Neg (NEG) Urine Benzodiazepines Screen Neg (NEG) Urine Cocaine Screen Neg (NEG) Urine Cannabinoids Screen Neg (NEG) Urine Ethyl Alcohol Neg (NEG) Bedside Urine HCG, Qualitative Hcg negative (Negative) White Blood Count 8.6 x10^3/uL (4.0-11.0) Red Blood Count 5.13 x10^6/uL (3.50-5.40) Hemoglobin 16.1 g/dL (12.0-15.5) Hematocrit 47.1 % (36.0-47.0) Mean Corpuscular Volume 92 fL (79-100) Mean Corpuscular Hemoglobin 31 pg (25-35) Mean Corpuscular Hemoglobin Concent 34 g/dL (31-37) Red Cell Distribution Width 13.3 % (11.5-14.5) Platelet Count 300 x10^3/uL (140-400) Neutrophils (%) (Auto) 73 % (31-73) Lymphocytes (%) (Auto) 17 % (24-48) Monocytes (%) (Auto) 8 % (0-9) Eosinophils (%) (Auto) 1 % (0-3) Basophils (%) (Auto) 0 % (0-3) Neutrophils # (Auto) 6.3 x10^3/uL (1.8-7.7) Lymphocytes # (Auto) 1.5 x10^3/uL (1.0-4.8) Monocytes # (Auto) 0.7 x10^3/uL (0.0-1.1) Eosinophils # (Auto) 0.1 x10^3/uL (0.0-0.7) Basophils # (Auto) 0.0 x10^3/uL (0.0-0.2) Sodium Level 136 mmol/L (136-145) Potassium Level 3.7 mmol/L (3.5-5.1) Chloride Level 102 mmol/L (98-107) Carbon Dioxide Level 23 mmol/L (21-32) Anion Gap 11 (6-14) Blood Urea Nitrogen 20 mg/dL (7-20) Creatinine 0.7 mg/dL (0.6-1.0) Estimated GFR (Cockcroft-Gault) 91.3 BUN/Creatinine Ratio 29 (6-20) Glucose Level 88 mg/dL (70-99) Calcium Level 8.8 mg/dL (8.5-10.1) Total Bilirubin 1.2 mg/dL (0.2-1.0) Aspartate Amino Transf (AST/SGOT) 15 U/L (15-37) Alanine Aminotransferase (ALT/SGPT) 22 U/L (14-59) Alkaline Phosphatase 39 U/L (46-116) Total Protein 7.1 g/dL (6.4-8.2) Albumin 3.9 g/dL (3.4-5.0) Albumin/Globulin Ratio 1.2 (1.0-1.7) Lipase 133 U/L (73-393) Ethyl Alcohol Level < 10 mg/dL (0-10) VTE Prophylaxis Ordered VTE Prophylaxis Devices: Yes VTE Pharmacological Prophylaxi: Yes Assessment/Plan Assessment/Plan ASSESMENT Abdominal Pain secondary to ileo-colic intususseption Chronic Diarrhea hx of Cholecystectomy PLAN admit to medical floor bed per sx l/s exploration, probable right colon resection NPO pain control dvt ppx: hold heparin given sx full code Problem Qualifiers (1) Abdominal pain: Abdominal location: epigastric Qualified Codes: R10.13 - Epigastric pain MYKEL HOWELL MD July 04, 2019 22:07
[2019-07-04] MEDS ORDERED: DESFLURANE 61 TO 120 MINUTES IH ONE (22:14)
[2019-07-04] MEDS ORDERED: DEXAMETHASONE SOD PHOS 4 MG/ML VIAL ONE (22:14)
[2019-07-04] MEDS ORDERED: ONDANSETRON PF 4 MG/2 ML VIAL. ONE (22:14)
[2019-07-04] MEDS ORDERED: NEOSTIGMINE METHYLSULFATE 5 MG/5 ML SYRINGE. ONE (22:14)
[2019-07-04] MEDS ORDERED: GLYCOPYRROLATE 1 MG/5 ML VIAL. ONE (22:15)
[2019-07-04] MEDS ORDERED: FAMOTIDINE 20 MG/2 ML VIAL ONE (22:24)
[2019-07-04] MEDS ORDERED: IV NORMAL SALINE 1000ML BAG 1,000 ML IV SCH (22:30)
[2019-07-05] VITALS (11 sets, daily range): BP systolic 148–182; BP diastolic 65–91
[2019-07-05] MEDS ORDERED: DEXTROSE 50% 25 GM / 50ML DISP.SYRIN. IV PRN
[2019-07-05] MEDS ORDERED: ONDANSETRON PF 4 MG/2 ML VIAL. IVP PRN
[2019-07-05] MEDS ORDERED: NALOXONE 0.4 MG/ML VIAL. IV PRN
[2019-07-05] MEDS ORDERED: 0.9 % SODIUM CHLORIDE 10 ML DISP.SYRIN. IV PRN
--- NOTE | 2019-07-05 00:05 | RAD ---
One view abdomen pelvis KUB 11:36 PM HISTORY: Status post surgery Supine AP view abdomen pelvis There is an NG tube with its tip in the proximal stomach. There is air scattered throughout portions of the colon. There is no obvious free air. There is evidence of prior cholecystectomy. IMPRESSION: Nonobstructive bowel gas pattern. Electronically signed by: Fab Wells III, MD (07/05/2019 12:02 AM) [id number]
[2019-07-05] MEDS ORDERED: fentaNYL PF VIAL 100 MCG/2 ML VIAL ONE (00:10)
[2019-07-05] MEDS ORDERED: PROCHLORPERAZINE 10 MG/2 ML VIAL. ONE (00:11)
--- NOTE | 2019-07-05 00:11 | PDOC ---
BRIEF OPERATIVE NOTE Date: July 05, 2019 Pre-Op Diagnosis ileocolic intussuseption Post-Op Diagnosis same Procedure Performed l/s right colon resection Surgeon Erlin RAZO Anesthesia Type: General Blood Loss 20cc IV Fluid 1300cc Urine Output 100cc Specimens Obtained ileo-colic resection Findings distal ileum into proximal transverse colon Complications none Operative Note Wk # [id number] NETO STONE MD July 05, 2019 00:11
[2019-07-05] MEDS: PROCHLORPERAZINE 10 MG/2 ML VIAL. IV PRN ×2 (00:14→01:04)
[2019-07-05] MEDS: fentaNYL PF VIAL 100 MCG/2 ML VIAL IV PRN ×3 (00:15→00:51)
[2019-07-05] MEDS: POTASSIUM CL 20MEQ-0.45% NACL 1,000 ML IV SCH ×3 (00:30→20:06)
[2019-07-05] MEDS: MORPHINE SULFATE 2 MG/ML VIAL. IV PRN ×2 (00:39→00:52)
--- NOTE | 2019-07-05 00:51 | OP ---
DATE OF SURGERY: 07/04/2019 PREOPERATIVE DIAGNOSIS: Ileocolic intussusception. POSTOPERATIVE DIAGNOSIS: Ileocolic intussusception. PROCEDURE: Laparoscopic right colon resection. SURGEON: Thom Stone MD SURGERY TEACHER: DUNG Sharma ANESTHESIA: General endotracheal. ESTIMATED BLOOD LOSS: 20 mL. INTRAVENOUS FLUIDS: 1300 mL. URINE OUTPUT: 100 mL. INDICATIONS: The patient is a 44-year-old, 4 days post-colonoscopy and biopsy of a cecal polyp. She presented with right-sided pain and palpable mass and a CT suggesting ileocolic intussusception. She was brought for laparoscopic exploration. OPERATIVE FINDINGS: She did indeed have an intussusception of the distal ileum into and as far as the proximal transverse colon. The remaining colon was redundant. Small bowel was without abnormality. DESCRIPTION OF PROCEDURE: The patient brought to the operating suite, given a general endotracheal anesthetic. Jules catheter placed to dependent drainage and the abdomen prepped and draped in usual sterile fashion. An epigastric incision was infiltrated with local anesthetic, incised and a 5 mm Visiport used to safely gain access into the abdominal cavity, taking care to avoid injury to abdominal contents. Pneumoperitoneum established. Camera inserted and under direct vision, a midline lower abdominal port was placed and a left lower quadrant port. We then set about mobilizing the distal ileum and proximal colon by placing the table in Trendelenburg and reflecting the bowel toward the midline by taking down the white line of Toldt. Care was taken to avoid the right ureter, right kidney, and duodenum. Table then in reverse Trendelenburg to allow mobilization of the hepatic flexure. When adequate mobilization was done, the table was returned to level. The epigastric incision was extended inferiorly toward the umbilicus and the abdomen entered. Wound protector placed. The distal small bowel and proximal colon were delivered out of the abdominal cavity and the distal small bowel, divided with a DEBRA stapler. Mesocolon sterilely clamped, divided and ligated up to a point beyond the process in the mid transverse colon, which was then divided allowing removal of the specimen. An end-to-end anastomosis was created by placing a posterior row of interrupted 3-0 Vicryl. Bowel occluded with atraumatic clamps. Staple lines excised. Mucosal anastomosis created with a running locked 3-0 chromic first posteriorly, then anteriorly. Clamps removed. Anastomosis completed with an anterior row of interrupted 3-0 Vicryl. There was competency and patency of the anastomosis at completion. The mesenteric rent was carefully closed with a 2-0 chromic, avoiding compromise of blood supply to the anastomosis. Gloves were changed, bowel returned to the abdomen. Area checked for hemostasis and when present and a correct sponge count was obtained, the wound retractor was removed and the midline incision closed with looped 0 PDS in running fashion tied in the middle. SubQ approximated with 3-0 Vicryl, skin closed with subcuticular 4-0 Monocryl. Sterile dressings applied. Postop foreign body film was negative for unexplained foreign body. The patient awakened from her anesthetic and taken to the recovery room in satisfactory condition. THOM STONE MD DR: YASIR/nicole JOB#: [id number] / [id number]
[2019-07-05] MEDS: HYDROmorphone 2 MG/ML VIAL IV PRN ×6 (01:26→22:19)
[2019-07-05] MEDS: IV NORMAL SALINE 1000ML BAG 1,000 ML IV SCH ×2 (01:30→22:09)
[2019-07-05 05:21] LABS: BASO % 0 % (0-3); EOS % 0 % (0-3); HEMATOCRIT 43.1 % (36.0-47.0); HEMOGLOBIN 14.6 g/dL (12.0-15.5); LYMPH # 0.3 x10^3/uL (1.0-4.8); LYMPH % 2 % (24-48); MEAN CORPUSCULAR HEMOGLOBIN 31 pg (25-35); MEAN CORPUSCULAR HGB CONC 34 g/dL (31-37); MEAN CORPUSCULAR VOLUME 92 fL (79-100); MONO # 0.5 x10^3/uL (0.0-1.1); MONO % 4 % (0-9); NEUT # 11.6 x10^3/uL (1.8-7.7); NEUT % 94 % (31-73); PLATELET COUNT 281 x10^3/uL (140-400); RED BLOOD COUNT 4.69 x10^6/uL (3.50-5.40); RED CELL DISTRIBUTION WIDTH 13.3 % (11.5-14.5); WHITE BLOOD COUNT 12.4 x10^3/uL (4.0-11.0)
[2019-07-05 05:48] LABS: ALBUMIN 3.5 g/dL (3.4-5.0); ALBUMIN/GLOBULIN RATIO 1.1 (1.0-1.7); CALCIUM 8.3 mg/dL (8.5-10.1); CREATININE 0.8 mg/dL (0.6-1.0); GFR 78.3; POTASSIUM 3.9 mmol/L (3.5-5.1); TOTAL BILIRUBIN 1.9 mg/dL (0.2-1.0); TOTAL PROTEIN 6.6 g/dL (6.4-8.2)
--- NOTE | 2019-07-05 06:33 | EKG ---
[address] [place] [address] Test Date: 2019-07-04 Test Time: 17:51:59 Pat Name: GERARD DUARTE Department: Room: 440 Gender: F Engineering Mgr: : [id number] Requested By: LYNSEY YAO Order Number: [id number] Reading MD: Charlie Denis Measurements Intervals Babb Rate: 75 P: 71 [place]: 140 QRS: 33 QRSD: 78 T: 60 QT: 380 QTc: 427 Interpretive Statements SINUS RHYTHM NORMAL ECG RI6.02 No previous ECG available for comparison Electronically Signed On 07-05-2019 8:22:21 CDT by Charlie Denis
[2019-07-05] MEDS: ENOXAPARIN 40 MG/0.4 ML SYRINGE. SQ SCH (09:28)
--- NOTE | 2019-07-05 10:55 | PDOC2 ---
GI CONSULT Reason For Consult: abd pain, intussusception HPI: HPI: 44 y/o female to ER w/ abd pain yesterday, now s/p laparoscopic right colon resection for ileocolic intussusception. I saw her earlier this morning w/ Dr. Calderon. Has post-operative pain and is sleepy. EGD and colonoscopy w/ Dr. Calderon on 06/30/19 for diarrhea and celiac rule-out showed normal esophagus, normal stomach, nodular mucosa in duodenum (biopsy negative for pathology), 5mm adenomatous cecal polyp, a few small-mouthed diverticula from sigmoid to hepatic flexure, Grade 1 non-bleeding internal hemorrhoids, and random biopsies from sigmoid to cecum were suggestive of microscopic (lymphocytic colitis). S/p cholecystectomy. PMH: PMH: endometriosis cholecystectomy, breast augmentation, D&C x 2 FH: Family History: Other (mother - colitis) Social History: Smoke: <1 pack per day ALCOHOL: occassional Drugs: None ROS: GEN: Denies fevers, chills, sweats HEENT: Denies blurred vision, sore throat CV: Denies chest pain RESP: Denies shortness of air, cough GI: Per HPI : Denies hematuria, dysuria ENDO: Denies weight changes NEURO: Denies confusion, dizziness MSK: Denies weakness, joint pain/swelling SKIN: Denies jaundice, pruritus Vitals: Vitals: Vital Signs Date Time Temp Pulse Resp B/P (MAP) Pulse Ox O2 Delivery O2 Flow Rate FiO2 07/05/19 08:30 Room Air 07/05/19 07:18 99.3 83 20 154/91 (112) 95 99.3 07/05/19 00:00 10 Labs: Labs: Laboratory Tests Test 07/04/19 15:58 07/04/19 16:17 07/04/19 16:55 07/04/19 17:20 Urine Collection Type Unknown Urine Color Yellow Urine Clarity Hazy Urine pH 6.0 (<5.0-8.0) Urine Specific [place] >=1.030 (1.000-1.030) Urine Protein Trace mg/dL (NEG-TRACE) Urine Glucose (UA) Negative mg/dL (NEG) Urine Ketones (Stick) Negative mg/dL (NEG) Urine Blood Moderate (NEG) Urine Nitrite Negative (NEG) Urine Bilirubin Negative (NEG) Urine Urobilinogen Dipstick 0.2 mg/dL (0.2 mg/dL) Urine Leukocyte Esterase Moderate (NEG) Urine RBC 6-10 /HPF (0-2) Urine WBC 5-10 /HPF (0-4) Urine Squamous Epithelial Cells Many /LPF Urine Amorphous Sediment Present /HPF Urine Bacteria Mod /HPF (0-FEW) Urine Mucus Mod /LPF Urine Opiates Screen Neg (NEG) Urine Methadone Screen Neg (NEG) Urine Barbiturates Neg (NEG) Urine Phencyclidine Screen Neg (NEG) Urine Amphetamine/Methamphetamine Neg (NEG) Urine Benzodiazepines Screen Neg (NEG) Urine Cocaine Screen Neg (NEG) Urine Cannabinoids Screen Neg (NEG) Urine Ethyl Alcohol Neg (NEG) Bedside Urine HCG, Qualitative Hcg negative (Negative) White Blood Count 8.6 x10^3/uL (4.0-11.0) Red Blood Count 5.13 x10^6/uL (3.50-5.40) Hemoglobin 16.1 g/dL (12.0-15.5) Hematocrit 47.1 % (36.0-47.0) Mean Corpuscular Volume 92 fL (79-100) Mean Corpuscular Hemoglobin 31 pg (25-35) Mean Corpuscular Hemoglobin Concent 34 g/dL (31-37) Red Cell Distribution Width 13.3 % (11.5-14.5) Platelet Count 300 x10^3/uL (140-400) Neutrophils (%) (Auto) 73 % (31-73) Lymphocytes (%) (Auto) 17 % (24-48) Monocytes (%) (Auto) 8 % (0-9) Eosinophils (%) (Auto) 1 % (0-3) Basophils (%) (Auto) 0 % (0-3) Neutrophils # (Auto) 6.3 x10^3/uL (1.8-7.7) Lymphocytes # (Auto) 1.5 x10^3/uL (1.0-4.8) Monocytes # (Auto) 0.7 x10^3/uL (0.0-1.1) Eosinophils # (Auto) 0.1 x10^3/uL (0.0-0.7) Basophils # (Auto) 0.0 x10^3/uL (0.0-0.2) Sodium Level 136 mmol/L (136-145) Potassium Level 3.7 mmol/L (3.5-5.1) Chloride Level 102 mmol/L (98-107) Carbon Dioxide Level 23 mmol/L (21-32) Anion Gap 11 (6-14) Blood Urea Nitrogen 20 mg/dL (7-20) Creatinine 0.7 mg/dL (0.6-1.0) Estimated GFR (Cockcroft-Gault) 91.3 BUN/Creatinine Ratio 29 (6-20) Glucose Level 88 mg/dL (70-99) Calcium Level 8.8 mg/dL (8.5-10.1) Total Bilirubin 1.2 mg/dL (0.2-1.0) Aspartate Amino Transf (AST/SGOT) 15 U/L (15-37) Alanine Aminotransferase (ALT/SGPT) 22 U/L (14-59) Alkaline Phosphatase 39 U/L (46-116) Total Protein 7.1 g/dL (6.4-8.2) Albumin 3.9 g/dL (3.4-5.0) Albumin/Globulin Ratio 1.2 (1.0-1.7) Lipase 133 U/L (73-393) Ethyl Alcohol Level < 10 mg/dL (0-10) Test 07/05/19 03:54 White Blood Count 12.4 x10^3/uL (4.0-11.0) Red Blood Count 4.69 x10^6/uL (3.50-5.40) Hemoglobin 14.6 g/dL (12.0-15.5) Hematocrit 43.1 % (36.0-47.0) Mean Corpuscular Volume 92 fL (79-100) Mean Corpuscular Hemoglobin 31 pg (25-35) Mean Corpuscular Hemoglobin Concent 34 g/dL (31-37) Red Cell Distribution Width 13.3 % (11.5-14.5) Platelet Count 281 x10^3/uL (140-400) Neutrophils (%) (Auto) 94 % (31-73) Lymphocytes (%) (Auto) 2 % (24-48) Monocytes (%) (Auto) 4 % (0-9) Eosinophils (%) (Auto) 0 % (0-3) Basophils (%) (Auto) 0 % (0-3) Neutrophils # (Auto) 11.6 x10^3/uL (1.8-7.7) Lymphocytes # (Auto) 0.3 x10^3/uL (1.0-4.8) Monocytes # (Auto) 0.5 x10^3/uL (0.0-1.1) Eosinophils # (Auto) 0.0 x10^3/uL (0.0-0.7) Basophils # (Auto) 0.0 x10^3/uL (0.0-0.2) Sodium Level 135 mmol/L (136-145) Potassium Level 3.9 mmol/L (3.5-5.1) Chloride Level 99 mmol/L (98-107) Carbon Dioxide Level 23 mmol/L (21-32) Anion Gap 13 (6-14) Blood Urea Nitrogen 20 mg/dL (7-20) Creatinine 0.8 mg/dL (0.6-1.0) Estimated GFR (Cockcroft-Gault) 78.3 BUN/Creatinine Ratio 25 (6-20) Glucose Level 196 mg/dL (70-99) Calcium Level 8.3 mg/dL (8.5-10.1) Total Bilirubin 1.9 mg/dL (0.2-1.0) Aspartate Amino Transf (AST/SGOT) 59 U/L (15-37) Alanine Aminotransferase (ALT/SGPT) 75 U/L (14-59) Alkaline Phosphatase 66 U/L (46-116) Total Protein 6.6 g/dL (6.4-8.2) Albumin 3.5 g/dL (3.4-5.0) Albumin/Globulin Ratio 1.1 (1.0-1.7) Allergies: Coded Allergies: Sulfa (Sulfonamide Antibiotics) (Verified Allergy, Severe, 06/30/19) cefaclor (Verified Allergy, Severe, Hives, 06/30/19) Medications: Current Medications Medications (Trade) Dose Ordered Sig/Rommel Route PRN Reason Start Time Stop Time Status Last Admin Dose Admin Morphine Sulfate (Morphine Sulfate) 5 mg 1X ONCE IV 07/04/19 16:45 07/04/19 16:46 DC 07/04/19 17:03 Ondansetron HCl (Zofran) 4 mg 1X ONCE IVP 07/04/19 16:45 07/04/19 16:46 DC 07/04/19 17:02 Iohexol (Omnipaque 300 Mg/ml) 75 ml 1X ONCE IV 07/04/19 17:45 07/04/19 17:46 DC 07/04/19 18:06 Hydromorphone HCl (Dilaudid) 1 mg 1X ONCE IV 07/04/19 19:45 07/04/19 19:46 DC 07/04/19 19:52 Piperacillin Sod/ Tazobactam Sod 3.375 gm/Sodium Chloride 50 ml @ 100 mls/hr 1X ONCE IV 07/04/19 20:45 07/04/19 21:14 DC 07/04/19 22:00 Fentanyl Citrate (Fentanyl 2ml Vial) 50 mcg PRN Q5MIN PRN IV MODERATE TO SEVERE PAIN 07/04/19 21:00 07/05/19 20:59 07/05/19 00:51 Morphine Sulfate (Morphine Sulfate) 1 mg PRN Q10MIN PRN IV SEVERE PAIN 7-10 07/04/19 21:00 07/05/19 20:59 07/05/19 00:52 Prochlorperazine Edisylate (Compazine) 5 mg PACU PRN PRN IV NAUSEA, MRX1 07/04/19 21:00 07/05/19 20:59 07/05/19 01:04 Bupivacaine HCl/ Epinephrine Bitart (Sensorcain-Epi 0.5%-1:039742 Mpf) 30 ml STK-MED ONCE .ROUTE 07/04/19 21:30 07/04/19 21:30 DC 07/04/19 22:10 Enoxaparin Sodium (Lovenox 40mg Syringe) 40 mg Q24H SQ 07/05/19 09:00 07/05/19 09:28 Sodium Chloride 1,000 ml @ 25 mls/hr Q24H IV 07/05/19 00:30 07/05/19 01:30 Hydromorphone HCl (Dilaudid) 1 mg PRN Q3HRS PRN IV SEVERE PAIN 7-10 07/05/19 00:00 07/05/19 09:25 Imaging: Imaging: CT A/P 07/04/19 IMPRESSION: 1. There is a ileocolonic intussusception in the right lower quadrant. No definite bleed mass. No significant proximal small bowel dilation to suggest obstruction. 2. Small amount of free fluid. No pneumoperitoneum or pneumatosis. 3. Otherwise no significant abnormality. 4. Status post cholecystectomy. KUB 07/04/19 IMPRESSION: Nonobstructive bowel gas pattern. PE: GEN: NAD, resting HEENT: Atraumatic, PERRL LUNGS: CTAB HEART: RRR ABD: quiet, sore EXTREMITY: No edema SKIN: No rashes, no jaundice NEURO/PSYCH: A & O 3 A/P: A/P: Ileocolic intussusception s/p laparoscopic right colon 07/04/19 Leukocytosis, elevated LFTs CRC screen, h/o adenomatous polyp - done last week Microscopic colitis, diverticulosis, hemorrhoids S/p cholecystectomy -- Continue per surgery. Can follow-up as outpt re: microscopic colitis. Monitor LFTs - recheck tomorrow. ANGUS ZEPEDA July 05, 2019 10:55
--- NOTE | 2019-07-05 11:57 | NUR ---
SW following. Discussed with RN, pt from home, room air, had surgery. RN advised no SW needs at this time. SW will continue to follow.
--- NOTE | 2019-07-05 12:44 | PDOC ---
SURGICAL PROGRESS NOTE Subjective sleepy conversive Vital Signs Vital Signs Date Time Temp Pulse Resp B/P (MAP) Pulse Ox O2 Delivery O2 Flow Rate FiO2 07/05/19 10:54 98.5 70 16 152/76 (101) 95 Room Air 98.5 07/05/19 00:00 10 I&O Intake and Output 07/05/19 07:00 Intake Total 1850 ml Output Total 120 ml Balance 1730 ml Intake IV Total 1850 ml Output Urine Total 100 ml Estimated Blood Loss 20 ml PATIENT HAS A PATEL: Yes Labs Laboratory Tests Test 07/04/19 15:58 07/04/19 16:17 07/04/19 16:55 07/04/19 17:20 Urine Collection Type Unknown Urine Color Yellow Urine Clarity Hazy Urine pH 6.0 (<5.0-8.0) Urine Specific [place] >=1.030 (1.000-1.030) Urine Protein Trace mg/dL (NEG-TRACE) Urine Glucose (UA) Negative mg/dL (NEG) Urine Ketones (Stick) Negative mg/dL (NEG) Urine Blood Moderate (NEG) Urine Nitrite Negative (NEG) Urine Bilirubin Negative (NEG) Urine Urobilinogen Dipstick 0.2 mg/dL (0.2 mg/dL) Urine Leukocyte Esterase Moderate (NEG) Urine RBC 6-10 /HPF (0-2) Urine WBC 5-10 /HPF (0-4) Urine Squamous Epithelial Cells Many /LPF Urine Amorphous Sediment Present /HPF Urine Bacteria Mod /HPF (0-FEW) Urine Mucus Mod /LPF Urine Opiates Screen Neg (NEG) Urine Methadone Screen Neg (NEG) Urine Barbiturates Neg (NEG) Urine Phencyclidine Screen Neg (NEG) Urine Amphetamine/Methamphetamine Neg (NEG) Urine Benzodiazepines Screen Neg (NEG) Urine Cocaine Screen Neg (NEG) Urine Cannabinoids Screen Neg (NEG) Urine Ethyl Alcohol Neg (NEG) Bedside Urine HCG, Qualitative Hcg negative (Negative) White Blood Count 8.6 x10^3/uL (4.0-11.0) Red Blood Count 5.13 x10^6/uL (3.50-5.40) Hemoglobin 16.1 g/dL (12.0-15.5) Hematocrit 47.1 % (36.0-47.0) Mean Corpuscular Volume 92 fL (79-100) Mean Corpuscular Hemoglobin 31 pg (25-35) Mean Corpuscular Hemoglobin Concent 34 g/dL (31-37) Red Cell Distribution Width 13.3 % (11.5-14.5) Platelet Count 300 x10^3/uL (140-400) Neutrophils (%) (Auto) 73 % (31-73) Lymphocytes (%) (Auto) 17 % (24-48) Monocytes (%) (Auto) 8 % (0-9) Eosinophils (%) (Auto) 1 % (0-3) Basophils (%) (Auto) 0 % (0-3) Neutrophils # (Auto) 6.3 x10^3/uL (1.8-7.7) Lymphocytes # (Auto) 1.5 x10^3/uL (1.0-4.8) Monocytes # (Auto) 0.7 x10^3/uL (0.0-1.1) Eosinophils # (Auto) 0.1 x10^3/uL (0.0-0.7) Basophils # (Auto) 0.0 x10^3/uL (0.0-0.2) Sodium Level 136 mmol/L (136-145) Potassium Level 3.7 mmol/L (3.5-5.1) Chloride Level 102 mmol/L (98-107) Carbon Dioxide Level 23 mmol/L (21-32) Anion Gap 11 (6-14) Blood Urea Nitrogen 20 mg/dL (7-20) Creatinine 0.7 mg/dL (0.6-1.0) Estimated GFR (Cockcroft-Gault) 91.3 BUN/Creatinine Ratio 29 (6-20) Glucose Level 88 mg/dL (70-99) Calcium Level 8.8 mg/dL (8.5-10.1) Total Bilirubin 1.2 mg/dL (0.2-1.0) Aspartate Amino Transf (AST/SGOT) 15 U/L (15-37) Alanine Aminotransferase (ALT/SGPT) 22 U/L (14-59) Alkaline Phosphatase 39 U/L (46-116) Total Protein 7.1 g/dL (6.4-8.2) Albumin 3.9 g/dL (3.4-5.0) Albumin/Globulin Ratio 1.2 (1.0-1.7) Lipase 133 U/L (73-393) Ethyl Alcohol Level < 10 mg/dL (0-10) Test 07/05/19 03:54 White Blood Count 12.4 x10^3/uL (4.0-11.0) Red Blood Count 4.69 x10^6/uL (3.50-5.40) Hemoglobin 14.6 g/dL (12.0-15.5) Hematocrit 43.1 % (36.0-47.0) Mean Corpuscular Volume 92 fL (79-100) Mean Corpuscular Hemoglobin 31 pg (25-35) Mean Corpuscular Hemoglobin Concent 34 g/dL (31-37) Red Cell Distribution Width 13.3 % (11.5-14.5) Platelet Count 281 x10^3/uL (140-400) Neutrophils (%) (Auto) 94 % (31-73) Lymphocytes (%) (Auto) 2 % (24-48) Monocytes (%) (Auto) 4 % (0-9) Eosinophils (%) (Auto) 0 % (0-3) Basophils (%) (Auto) 0 % (0-3) Neutrophils # (Auto) 11.6 x10^3/uL (1.8-7.7) Lymphocytes # (Auto) 0.3 x10^3/uL (1.0-4.8) Monocytes # (Auto) 0.5 x10^3/uL (0.0-1.1) Eosinophils # (Auto) 0.0 x10^3/uL (0.0-0.7) Basophils # (Auto) 0.0 x10^3/uL (0.0-0.2) Sodium Level 135 mmol/L (136-145) Potassium Level 3.9 mmol/L (3.5-5.1) Chloride Level 99 mmol/L (98-107) Carbon Dioxide Level 23 mmol/L (21-32) Anion Gap 13 (6-14) Blood Urea Nitrogen 20 mg/dL (7-20) Creatinine 0.8 mg/dL (0.6-1.0) Estimated GFR (Cockcroft-Gault) 78.3 BUN/Creatinine Ratio 25 (6-20) Glucose Level 196 mg/dL (70-99) Calcium Level 8.3 mg/dL (8.5-10.1) Total Bilirubin 1.9 mg/dL (0.2-1.0) Aspartate Amino Transf (AST/SGOT) 59 U/L (15-37) Alanine Aminotransferase (ALT/SGPT) 75 U/L (14-59) Alkaline Phosphatase 66 U/L (46-116) Total Protein 6.6 g/dL (6.4-8.2) Albumin 3.5 g/dL (3.4-5.0) Albumin/Globulin Ratio 1.1 (1.0-1.7) Laboratory Tests Test 07/04/19 15:58 07/04/19 16:17 07/04/19 16:55 07/04/19 17:20 Urine Collection Type Unknown Urine Color Yellow Urine Clarity Hazy Urine pH 6.0 (<5.0-8.0) Urine Specific [place] >=1.030 (1.000-1.030) Urine Protein Trace mg/dL (NEG-TRACE) Urine Glucose (UA) Negative mg/dL (NEG) Urine Ketones (Stick) Negative mg/dL (NEG) Urine Blood Moderate (NEG) Urine Nitrite Negative (NEG) Urine Bilirubin Negative (NEG) Urine Urobilinogen Dipstick 0.2 mg/dL (0.2 mg/dL) Urine Leukocyte Esterase Moderate (NEG) Urine RBC 6-10 /HPF (0-2) Urine WBC 5-10 /HPF (0-4) Urine Squamous Epithelial Cells Many /LPF Urine Amorphous Sediment Present /HPF Urine Bacteria Mod /HPF (0-FEW) Urine Mucus Mod /LPF Urine Opiates Screen Neg (NEG) Urine Methadone Screen Neg (NEG) Urine Barbiturates Neg (NEG) Urine Phencyclidine Screen Neg (NEG) Urine Amphetamine/Methamphetamine Neg (NEG) Urine Benzodiazepines Screen Neg (NEG) Urine Cocaine Screen Neg (NEG) Urine Cannabinoids Screen Neg (NEG) Urine Ethyl Alcohol Neg (NEG) Bedside Urine HCG, Qualitative Hcg negative (Negative) White Blood Count 8.6 x10^3/uL (4.0-11.0) Red Blood Count 5.13 x10^6/uL (3.50-5.40) Hemoglobin 16.1 g/dL (12.0-15.5) Hematocrit 47.1 % (36.0-47.0) Mean Corpuscular Volume 92 fL (79-100) Mean Corpuscular Hemoglobin 31 pg (25-35) Mean Corpuscular Hemoglobin Concent 34 g/dL (31-37) Red Cell Distribution Width 13.3 % (11.5-14.5) Platelet Count 300 x10^3/uL (140-400) Neutrophils (%) (Auto) 73 % (31-73) Lymphocytes (%) (Auto) 17 % (24-48) Monocytes (%) (Auto) 8 % (0-9) Eosinophils (%) (Auto) 1 % (0-3) Basophils (%) (Auto) 0 % (0-3) Neutrophils # (Auto) 6.3 x10^3/uL (1.8-7.7) Lymphocytes # (Auto) 1.5 x10^3/uL (1.0-4.8) Monocytes # (Auto) 0.7 x10^3/uL (0.0-1.1) Eosinophils # (Auto) 0.1 x10^3/uL (0.0-0.7) Basophils # (Auto) 0.0 x10^3/uL (0.0-0.2) Sodium Level 136 mmol/L (136-145) Potassium Level 3.7 mmol/L (3.5-5.1) Chloride Level 102 mmol/L (98-107) Carbon Dioxide Level 23 mmol/L (21-32) Anion Gap 11 (6-14) Blood Urea Nitrogen 20 mg/dL (7-20) Creatinine 0.7 mg/dL (0.6-1.0) Estimated GFR (Cockcroft-Gault) 91.3 BUN/Creatinine Ratio 29 (6-20) Glucose Level 88 mg/dL (70-99) Calcium Level 8.8 mg/dL (8.5-10.1) Total Bilirubin 1.2 mg/dL (0.2-1.0) Aspartate Amino Transf (AST/SGOT) 15 U/L (15-37) Alanine Aminotransferase (ALT/SGPT) 22 U/L (14-59) Alkaline Phosphatase 39 U/L (46-116) Total Protein 7.1 g/dL (6.4-8.2) Albumin 3.9 g/dL (3.4-5.0) Albumin/Globulin Ratio 1.2 (1.0-1.7) Lipase 133 U/L (73-393) Ethyl Alcohol Level < 10 mg/dL (0-10) Test 07/05/19 03:54 White Blood Count 12.4 x10^3/uL (4.0-11.0) Red Blood Count 4.69 x10^6/uL (3.50-5.40) Hemoglobin 14.6 g/dL (12.0-15.5) Hematocrit 43.1 % (36.0-47.0) Mean Corpuscular Volume 92 fL (79-100) Mean Corpuscular Hemoglobin 31 pg (25-35) Mean Corpuscular Hemoglobin Concent 34 g/dL (31-37) Red Cell Distribution Width 13.3 % (11.5-14.5) Platelet Count 281 x10^3/uL (140-400) Neutrophils (%) (Auto) 94 % (31-73) Lymphocytes (%) (Auto) 2 % (24-48) Monocytes (%) (Auto) 4 % (0-9) Eosinophils (%) (Auto) 0 % (0-3) Basophils (%) (Auto) 0 % (0-3) Neutrophils # (Auto) 11.6 x10^3/uL (1.8-7.7) Lymphocytes # (Auto) 0.3 x10^3/uL (1.0-4.8) Monocytes # (Auto) 0.5 x10^3/uL (0.0-1.1) Eosinophils # (Auto) 0.0 x10^3/uL (0.0-0.7) Basophils # (Auto) 0.0 x10^3/uL (0.0-0.2) Sodium Level 135 mmol/L (136-145) Potassium Level 3.9 mmol/L (3.5-5.1) Chloride Level 99 mmol/L (98-107) Carbon Dioxide Level 23 mmol/L (21-32) Anion Gap 13 (6-14) Blood Urea Nitrogen 20 mg/dL (7-20) Creatinine 0.8 mg/dL (0.6-1.0) Estimated GFR (Cockcroft-Gault) 78.3 BUN/Creatinine Ratio 25 (6-20) Glucose Level 196 mg/dL (70-99) Calcium Level 8.3 mg/dL (8.5-10.1) Total Bilirubin 1.9 mg/dL (0.2-1.0) Aspartate Amino Transf (AST/SGOT) 59 U/L (15-37) Alanine Aminotransferase (ALT/SGPT) 75 U/L (14-59) Alkaline Phosphatase 66 U/L (46-116) Total Protein 6.6 g/dL (6.4-8.2) Albumin 3.5 g/dL (3.4-5.0) Albumin/Globulin Ratio 1.1 (1.0-1.7) Problem List Problems Medical Problems: (1) Intussusception intestine Status: Acute Assessment/Plan POD 1 ileo-colic resection ambulate NETO STONE MD July 05, 2019 12:44
--- NOTE | 2019-07-05 14:51 | PDOC ---
PROGRESS NOTES Chief Complaint Chief Complaint sleepy this AM, pain controlled. History of Present Illness History of Present Illness ASSESMENT Abdominal Pain secondary to Ileocolic intussusception s/p laparoscopic right colon 07/04/19 Microscopic colitis diverticulosis hemorrhoids leukocytosis elevated lfts hx of Cholecystectomy PLAN post op sx plans per gen sx advance diet as tolerated pain control dvt ppx when okay with sx full code per GI note: EGD and colonoscopy w/ Dr. Calderon on 06/30/19 for diarrhea and celiac rule-out showed normal esophagus, normal stomach, nodular mucosa in duodenum (biopsy negative for pathology), 5mm adenomatous cecal polyp, a few small-mouthed diverticula from sigmoid to hepatic flexure, Grade 1 non-bleeding internal hemorrhoids, and random biopsies from sigmoid to cecum were suggestive of microscopic (lymphocytic colitis) Vitals Vitals Vital Signs Date Time Temp Pulse Resp B/P (MAP) Pulse Ox O2 Delivery O2 Flow Rate FiO2 07/05/19 10:54 98.5 70 16 152/76 (101) 95 Room Air 98.5 07/05/19 00:00 10 Physical Exam General: Alert, mild distress Heart: Other (increased rate) Abdomen: Soft, Other (tender mass palpable on the right side) Skin: Other (warm, dry) Labs LABS Laboratory Tests Test 07/04/19 15:58 07/04/19 16:17 07/04/19 16:55 07/04/19 17:20 Urine Collection Type Unknown Urine Color Yellow Urine Clarity Hazy Urine pH 6.0 (<5.0-8.0) Urine Specific [place] >=1.030 (1.000-1.030) Urine Protein Trace mg/dL (NEG-TRACE) Urine Glucose (UA) Negative mg/dL (NEG) Urine Ketones (Stick) Negative mg/dL (NEG) Urine Blood Moderate (NEG) Urine Nitrite Negative (NEG) Urine Bilirubin Negative (NEG) Urine Urobilinogen Dipstick 0.2 mg/dL (0.2 mg/dL) Urine Leukocyte Esterase Moderate (NEG) Urine RBC 6-10 /HPF (0-2) Urine WBC 5-10 /HPF (0-4) Urine Squamous Epithelial Cells Many /LPF Urine Amorphous Sediment Present /HPF Urine Bacteria Mod /HPF (0-FEW) Urine Mucus Mod /LPF Urine Opiates Screen Neg (NEG) Urine Methadone Screen Neg (NEG) Urine Barbiturates Neg (NEG) Urine Phencyclidine Screen Neg (NEG) Urine Amphetamine/Methamphetamine Neg (NEG) Urine Benzodiazepines Screen Neg (NEG) Urine Cocaine Screen Neg (NEG) Urine Cannabinoids Screen Neg (NEG) Urine Ethyl Alcohol Neg (NEG) Bedside Urine HCG, Qualitative Hcg negative (Negative) White Blood Count 8.6 x10^3/uL (4.0-11.0) Red Blood Count 5.13 x10^6/uL (3.50-5.40) Hemoglobin 16.1 g/dL (12.0-15.5) Hematocrit 47.1 % (36.0-47.0) Mean Corpuscular Volume 92 fL (79-100) Mean Corpuscular Hemoglobin 31 pg (25-35) Mean Corpuscular Hemoglobin Concent 34 g/dL (31-37) Red Cell Distribution Width 13.3 % (11.5-14.5) Platelet Count 300 x10^3/uL (140-400) Neutrophils (%) (Auto) 73 % (31-73) Lymphocytes (%) (Auto) 17 % (24-48) Monocytes (%) (Auto) 8 % (0-9) Eosinophils (%) (Auto) 1 % (0-3) Basophils (%) (Auto) 0 % (0-3) Neutrophils # (Auto) 6.3 x10^3/uL (1.8-7.7) Lymphocytes # (Auto) 1.5 x10^3/uL (1.0-4.8) Monocytes # (Auto) 0.7 x10^3/uL (0.0-1.1) Eosinophils # (Auto) 0.1 x10^3/uL (0.0-0.7) Basophils # (Auto) 0.0 x10^3/uL (0.0-0.2) Sodium Level 136 mmol/L (136-145) Potassium Level 3.7 mmol/L (3.5-5.1) Chloride Level 102 mmol/L (98-107) Carbon Dioxide Level 23 mmol/L (21-32) Anion Gap 11 (6-14) Blood Urea Nitrogen 20 mg/dL (7-20) Creatinine 0.7 mg/dL (0.6-1.0) Estimated GFR (Cockcroft-Gault) 91.3 BUN/Creatinine Ratio 29 (6-20) Glucose Level 88 mg/dL (70-99) Calcium Level 8.8 mg/dL (8.5-10.1) Total Bilirubin 1.2 mg/dL (0.2-1.0) Aspartate Amino Transf (AST/SGOT) 15 U/L (15-37) Alanine Aminotransferase (ALT/SGPT) 22 U/L (14-59) Alkaline Phosphatase 39 U/L (46-116) Total Protein 7.1 g/dL (6.4-8.2) Albumin 3.9 g/dL (3.4-5.0) Albumin/Globulin Ratio 1.2 (1.0-1.7) Lipase 133 U/L (73-393) Ethyl Alcohol Level < 10 mg/dL (0-10) Test 07/05/19 03:54 White Blood Count 12.4 x10^3/uL (4.0-11.0) Red Blood Count 4.69 x10^6/uL (3.50-5.40) Hemoglobin 14.6 g/dL (12.0-15.5) Hematocrit 43.1 % (36.0-47.0) Mean Corpuscular Volume 92 fL (79-100) Mean Corpuscular Hemoglobin 31 pg (25-35) Mean Corpuscular Hemoglobin Concent 34 g/dL (31-37) Red Cell Distribution Width 13.3 % (11.5-14.5) Platelet Count 281 x10^3/uL (140-400) Neutrophils (%) (Auto) 94 % (31-73) Lymphocytes (%) (Auto) 2 % (24-48) Monocytes (%) (Auto) 4 % (0-9) Eosinophils (%) (Auto) 0 % (0-3) Basophils (%) (Auto) 0 % (0-3) Neutrophils # (Auto) 11.6 x10^3/uL (1.8-7.7) Lymphocytes # (Auto) 0.3 x10^3/uL (1.0-4.8) Monocytes # (Auto) 0.5 x10^3/uL (0.0-1.1) Eosinophils # (Auto) 0.0 x10^3/uL (0.0-0.7) Basophils # (Auto) 0.0 x10^3/uL (0.0-0.2) Sodium Level 135 mmol/L (136-145) Potassium Level 3.9 mmol/L (3.5-5.1) Chloride Level 99 mmol/L (98-107) Carbon Dioxide Level 23 mmol/L (21-32) Anion Gap 13 (6-14) Blood Urea Nitrogen 20 mg/dL (7-20) Creatinine 0.8 mg/dL (0.6-1.0) Estimated GFR (Cockcroft-Gault) 78.3 BUN/Creatinine Ratio 25 (6-20) Glucose Level 196 mg/dL (70-99) Calcium Level 8.3 mg/dL (8.5-10.1) Total Bilirubin 1.9 mg/dL (0.2-1.0) Aspartate Amino Transf (AST/SGOT) 59 U/L (15-37) Alanine Aminotransferase (ALT/SGPT) 75 U/L (14-59) Alkaline Phosphatase 66 U/L (46-116) Total Protein 6.6 g/dL (6.4-8.2) Albumin 3.5 g/dL (3.4-5.0) Albumin/Globulin Ratio 1.1 (1.0-1.7) Assessment and Plan Assessmemt and Plan Problems Medical Problems: (1) Intussusception intestine Status: Acute Comment Review of Relevant I have reviewed the following items fariha (where applicable) has been applied. Labs Laboratory Tests Test 07/04/19 15:58 07/04/19 16:17 07/04/19 16:55 07/04/19 17:20 Urine Collection Type Unknown Urine Color Yellow Urine Clarity Hazy Urine pH 6.0 (<5.0-8.0) Urine Specific [place] >=1.030 (1.000-1.030) Urine Protein Trace mg/dL (NEG-TRACE) Urine Glucose (UA) Negative mg/dL (NEG) Urine Ketones (Stick) Negative mg/dL (NEG) Urine Blood Moderate (NEG) Urine Nitrite Negative (NEG) Urine Bilirubin Negative (NEG) Urine Urobilinogen Dipstick 0.2 mg/dL (0.2 mg/dL) Urine Leukocyte Esterase Moderate (NEG) Urine RBC 6-10 /HPF (0-2) Urine WBC 5-10 /HPF (0-4) Urine Squamous Epithelial Cells Many /LPF Urine Amorphous Sediment Present /HPF Urine Bacteria Mod /HPF (0-FEW) Urine Mucus Mod /LPF Urine Opiates Screen Neg (NEG) Urine Methadone Screen Neg (NEG) Urine Barbiturates Neg (NEG) Urine Phencyclidine Screen Neg (NEG) Urine Amphetamine/Methamphetamine Neg (NEG) Urine Benzodiazepines Screen Neg (NEG) Urine Cocaine Screen Neg (NEG) Urine Cannabinoids Screen Neg (NEG) Urine Ethyl Alcohol Neg (NEG) Bedside Urine HCG, Qualitative Hcg negative (Negative) White Blood Count 8.6 x10^3/uL (4.0-11.0) Red Blood Count 5.13 x10^6/uL (3.50-5.40) Hemoglobin 16.1 g/dL (12.0-15.5) Hematocrit 47.1 % (36.0-47.0) Mean Corpuscular Volume 92 fL (79-100) Mean Corpuscular Hemoglobin 31 pg (25-35) Mean Corpuscular Hemoglobin Concent 34 g/dL (31-37) Red Cell Distribution Width 13.3 % (11.5-14.5) Platelet Count 300 x10^3/uL (140-400) Neutrophils (%) (Auto) 73 % (31-73) Lymphocytes (%) (Auto) 17 % (24-48) Monocytes (%) (Auto) 8 % (0-9) Eosinophils (%) (Auto) 1 % (0-3) Basophils (%) (Auto) 0 % (0-3) Neutrophils # (Auto) 6.3 x10^3/uL (1.8-7.7) Lymphocytes # (Auto) 1.5 x10^3/uL (1.0-4.8) Monocytes # (Auto) 0.7 x10^3/uL (0.0-1.1) Eosinophils # (Auto) 0.1 x10^3/uL (0.0-0.7) Basophils # (Auto) 0.0 x10^3/uL (0.0-0.2) Sodium Level 136 mmol/L (136-145) Potassium Level 3.7 mmol/L (3.5-5.1) Chloride Level 102 mmol/L (98-107) Carbon Dioxide Level 23 mmol/L (21-32) Anion Gap 11 (6-14) Blood Urea Nitrogen 20 mg/dL (7-20) Creatinine 0.7 mg/dL (0.6-1.0) Estimated GFR (Cockcroft-Gault) 91.3 BUN/Creatinine Ratio 29 (6-20) Glucose Level 88 mg/dL (70-99) Calcium Level 8.8 mg/dL (8.5-10.1) Total Bilirubin 1.2 mg/dL (0.2-1.0) Aspartate Amino Transf (AST/SGOT) 15 U/L (15-37) Alanine Aminotransferase (ALT/SGPT) 22 U/L (14-59) Alkaline Phosphatase 39 U/L (46-116) Total Protein 7.1 g/dL (6.4-8.2) Albumin 3.9 g/dL (3.4-5.0) Albumin/Globulin Ratio 1.2 (1.0-1.7) Lipase 133 U/L (73-393) Ethyl Alcohol Level < 10 mg/dL (0-10) Test 07/05/19 03:54 White Blood Count 12.4 x10^3/uL (4.0-11.0) Red Blood Count 4.69 x10^6/uL (3.50-5.40) Hemoglobin 14.6 g/dL (12.0-15.5) Hematocrit 43.1 % (36.0-47.0) Mean Corpuscular Volume 92 fL (79-100) Mean Corpuscular Hemoglobin 31 pg (25-35) Mean Corpuscular Hemoglobin Concent 34 g/dL (31-37) Red Cell Distribution Width 13.3 % (11.5-14.5) Platelet Count 281 x10^3/uL (140-400) Neutrophils (%) (Auto) 94 % (31-73) Lymphocytes (%) (Auto) 2 % (24-48) Monocytes (%) (Auto) 4 % (0-9) Eosinophils (%) (Auto) 0 % (0-3) Basophils (%) (Auto) 0 % (0-3) Neutrophils # (Auto) 11.6 x10^3/uL (1.8-7.7) Lymphocytes # (Auto) 0.3 x10^3/uL (1.0-4.8) Monocytes # (Auto) 0.5 x10^3/uL (0.0-1.1) Eosinophils # (Auto) 0.0 x10^3/uL (0.0-0.7) Basophils # (Auto) 0.0 x10^3/uL (0.0-0.2) Sodium Level 135 mmol/L (136-145) Potassium Level 3.9 mmol/L (3.5-5.1) Chloride Level 99 mmol/L (98-107) Carbon Dioxide Level 23 mmol/L (21-32) Anion Gap 13 (6-14) Blood Urea Nitrogen 20 mg/dL (7-20) Creatinine 0.8 mg/dL (0.6-1.0) Estimated GFR (Cockcroft-Gault) 78.3 BUN/Creatinine Ratio 25 (6-20) Glucose Level 196 mg/dL (70-99) Calcium Level 8.3 mg/dL (8.5-10.1) Total Bilirubin 1.9 mg/dL (0.2-1.0) Aspartate Amino Transf (AST/SGOT) 59 U/L (15-37) Alanine Aminotransferase (ALT/SGPT) 75 U/L (14-59) Alkaline Phosphatase 66 U/L (46-116) Total Protein 6.6 g/dL (6.4-8.2) Albumin 3.5 g/dL (3.4-5.0) Albumin/Globulin Ratio 1.1 (1.0-1.7) Laboratory Tests Test 07/04/19 15:58 07/04/19 16:17 07/04/19 16:55 07/04/19 17:20 Urine Collection Type Unknown Urine Color Yellow Urine Clarity Hazy Urine pH 6.0 (<5.0-8.0) Urine Specific [place] >=1.030 (1.000-1.030) Urine Protein Trace mg/dL (NEG-TRACE) Urine Glucose (UA) Negative mg/dL (NEG) Urine Ketones (Stick) Negative mg/dL (NEG) Urine Blood Moderate (NEG) Urine Nitrite Negative (NEG) Urine Bilirubin Negative (NEG) Urine Urobilinogen Dipstick 0.2 mg/dL (0.2 mg/dL) Urine Leukocyte Esterase Moderate (NEG) Urine RBC 6-10 /HPF (0-2) Urine WBC 5-10 /HPF (0-4) Urine Squamous Epithelial Cells Many /LPF Urine Amorphous Sediment Present /HPF Urine Bacteria Mod /HPF (0-FEW) Urine Mucus Mod /LPF Urine Opiates Screen Neg (NEG) Urine Methadone Screen Neg (NEG) Urine Barbiturates Neg (NEG) Urine Phencyclidine Screen Neg (NEG) Urine Amphetamine/Methamphetamine Neg (NEG) Urine Benzodiazepines Screen Neg (NEG) Urine Cocaine Screen Neg (NEG) Urine Cannabinoids Screen Neg (NEG) Urine Ethyl Alcohol Neg (NEG) Bedside Urine HCG, Qualitative Hcg negative (Negative) White Blood Count 8.6 x10^3/uL (4.0-11.0) Red Blood Count 5.13 x10^6/uL (3.50-5.40) Hemoglobin 16.1 g/dL (12.0-15.5) Hematocrit 47.1 % (36.0-47.0) Mean Corpuscular Volume 92 fL (79-100) Mean Corpuscular Hemoglobin 31 pg (25-35) Mean Corpuscular Hemoglobin Concent 34 g/dL (31-37) Red Cell Distribution Width 13.3 % (11.5-14.5) Platelet Count 300 x10^3/uL (140-400) Neutrophils (%) (Auto) 73 % (31-73) Lymphocytes (%) (Auto) 17 % (24-48) Monocytes (%) (Auto) 8 % (0-9) Eosinophils (%) (Auto) 1 % (0-3) Basophils (%) (Auto) 0 % (0-3) Neutrophils # (Auto) 6.3 x10^3/uL (1.8-7.7) Lymphocytes # (Auto) 1.5 x10^3/uL (1.0-4.8) Monocytes # (Auto) 0.7 x10^3/uL (0.0-1.1) Eosinophils # (Auto) 0.1 x10^3/uL (0.0-0.7) Basophils # (Auto) 0.0 x10^3/uL (0.0-0.2) Sodium Level 136 mmol/L (136-145) Potassium Level 3.7 mmol/L (3.5-5.1) Chloride Level 102 mmol/L (98-107) Carbon Dioxide Level 23 mmol/L (21-32) Anion Gap 11 (6-14) Blood Urea Nitrogen 20 mg/dL (7-20) Creatinine 0.7 mg/dL (0.6-1.0) Estimated GFR (Cockcroft-Gault) 91.3 BUN/Creatinine Ratio 29 (6-20) Glucose Level 88 mg/dL (70-99) Calcium Level 8.8 mg/dL (8.5-10.1) Total Bilirubin 1.2 mg/dL (0.2-1.0) Aspartate Amino Transf (AST/SGOT) 15 U/L (15-37) Alanine Aminotransferase (ALT/SGPT) 22 U/L (14-59) Alkaline Phosphatase 39 U/L (46-116) Total Protein 7.1 g/dL (6.4-8.2) Albumin 3.9 g/dL (3.4-5.0) Albumin/Globulin Ratio 1.2 (1.0-1.7) Lipase 133 U/L (73-393) Ethyl Alcohol Level < 10 mg/dL (0-10) Test 07/05/19 03:54 White Blood Count 12.4 x10^3/uL (4.0-11.0) Red Blood Count 4.69 x10^6/uL (3.50-5.40) Hemoglobin 14.6 g/dL (12.0-15.5) Hematocrit 43.1 % (36.0-47.0) Mean Corpuscular Volume 92 fL (79-100) Mean Corpuscular Hemoglobin 31 pg (25-35) Mean Corpuscular Hemoglobin Concent 34 g/dL (31-37) Red Cell Distribution Width 13.3 % (11.5-14.5) Platelet Count 281 x10^3/uL (140-400) Neutrophils (%) (Auto) 94 % (31-73) Lymphocytes (%) (Auto) 2 % (24-48) Monocytes (%) (Auto) 4 % (0-9) Eosinophils (%) (Auto) 0 % (0-3) Basophils (%) (Auto) 0 % (0-3) Neutrophils # (Auto) 11.6 x10^3/uL (1.8-7.7) Lymphocytes # (Auto) 0.3 x10^3/uL (1.0-4.8) Monocytes # (Auto) 0.5 x10^3/uL (0.0-1.1) Eosinophils # (Auto) 0.0 x10^3/uL (0.0-0.7) Basophils # (Auto) 0.0 x10^3/uL (0.0-0.2) Sodium Level 135 mmol/L (136-145) Potassium Level 3.9 mmol/L (3.5-5.1) Chloride Level 99 mmol/L (98-107) Carbon Dioxide Level 23 mmol/L (21-32) Anion Gap 13 (6-14) Blood Urea Nitrogen 20 mg/dL (7-20) Creatinine 0.8 mg/dL (0.6-1.0) Estimated GFR (Cockcroft-Gault) 78.3 BUN/Creatinine Ratio 25 (6-20) Glucose Level 196 mg/dL (70-99) Calcium Level 8.3 mg/dL (8.5-10.1) Total Bilirubin 1.9 mg/dL (0.2-1.0) Aspartate Amino Transf (AST/SGOT) 59 U/L (15-37) Alanine Aminotransferase (ALT/SGPT) 75 U/L (14-59) Alkaline Phosphatase 66 U/L (46-116) Total Protein 6.6 g/dL (6.4-8.2) Albumin 3.5 g/dL (3.4-5.0) Albumin/Globulin Ratio 1.1 (1.0-1.7) Medications Current Medications Morphine Sulfate (Morphine Sulfate) 5 mg 1X ONCE IV Last administered on 07/04/19at 17:03; Start 07/04/19 at 16:45; Stop 07/04/19 at 16:46; Status DC Ondansetron HCl (Zofran) 4 mg 1X ONCE IVP Last administered on 07/04/19at 17:02; Start 07/04/19 at 16:45; Stop 07/04/19 at 16:46; Status DC Iohexol (Omnipaque 300 Mg/ml) 75 ml 1X ONCE IV Last administered on 07/04/19at 18:06; Start 07/04/19 at 17:45; Stop 07/04/19 at 17:46; Status DC Info (CONTRAST GIVEN -- Rx MONITORING) 1 each PRN DAILY PRN MC SEE COMMENTS; Start 07/04/19 at 18:00; Stop 07/06/19 at 17:59 Hydromorphone HCl (Dilaudid) 1 mg 1X ONCE IV Last administered on 07/04/19at 19:52; Start 07/04/19 at 19:45; Stop 07/04/19 at 19:46; Status DC Piperacillin Sod/ Tazobactam Sod 3.375 gm/Sodium Chloride 50 ml @ 100 mls/hr 1X ONCE IV Last administered on 07/04/19at 22:00; Start 07/04/19 at 20:45; Stop 07/04/19 at 21:14; Status DC Ondansetron HCl (Zofran) 4 mg PRN Q8HRS PRN IV NAUSEA/VOMITING; Start 07/04/19 at 20:45; Stop 07/05/19 at 20:44 Morphine Sulfate (Morphine Sulfate) 4 mg PRN Q2HR PRN IV PAIN; Start 07/04/19 at 20:45; Stop 07/05/19 at 20:44 Sodium Chloride 1,000 ml @ 125 mls/hr 1X ONCE IV ; Start 07/04/19 at 20:45; Stop 07/05/19 at 04:44; Status DC Propofol (Diprivan) 200 mg STK-MED ONCE IV ; Start 07/04/19 at 20:58; Stop 07/04/19 at 20:59; Status DC Lidocaine HCl (Lidocaine Pf 2% Vial) 5 ml STK-MED ONCE .ROUTE ; Start 07/04/19 at 20:58; Stop 07/04/19 at 20:59; Status DC Rocuronium [place] (Zemuron) 50 mg STK-MED ONCE .ROUTE ; Start 07/04/19 at 20:58; Stop 07/04/19 at 20:59; Status DC Fentanyl Citrate (Fentanyl 2ml Vial) 100 mcg STK-MED ONCE .ROUTE ; Start 07/04/19 at 20:58; Stop 07/04/19 at 20:59; Status DC Ondansetron HCl (Zofran) 4 mg PRN Q6HRS PRN IV NAUSEA/VOMITING 1ST CHOICE; Start 07/04/19 at 21:00; Stop 07/05/19 at 20:59 Fentanyl Citrate (Fentanyl 2ml Vial) 25 mcg PRN Q5MIN PRN IV MILD PAIN 1-3; Start 07/04/19 at 21:00; Stop 07/05/19 at 20:59 Fentanyl Citrate (Fentanyl 2ml Vial) 50 mcg PRN Q5MIN PRN IV MODERATE TO SEVERE PAIN Last administered on 07/05/19at 00:51; Start 07/04/19 at 21:00; Stop 07/05/19 at 20:59 Morphine Sulfate (Morphine Sulfate) 1 mg PRN Q10MIN PRN IV SEVERE PAIN 7-10 Last administered on 07/05/19at 00:52; Start 07/04/19 at 21:00; Stop 07/05/19 at 20:59 Ringer's Solution 1,000 ml @ 30 mls/hr Q24H IV ; Start 07/04/19 at 20:59; Stop 07/05/19 at 08:58; Status DC Lidocaine HCl (Xylocaine-Mpf 1% 2ml Vial) 2 ml PRN 1X PRN ID PRIOR TO IV START; Start 07/04/19 at 21:00; Stop 07/05/19 at 20:59 Hydromorphone HCl (Dilaudid) 0.5 mg PRN Q10MIN PRN IV SEV PAIN, Second choice; Start 07/04/19 at 21:00; Stop 07/05/19 at 20:59 Prochlorperazine Edisylate (Compazine) 5 mg PACU PRN PRN IV NAUSEA, MRX1 Last administered on 07/05/19at 01:04; Start 07/04/19 at 21:00; Stop 07/05/19 at 20:59 Bupivacaine HCl/ Epinephrine Bitart (Sensorcain-Epi 0.5%-1:[id number] Mpf) 30 ml STK-MED ONCE .ROUTE Last administered on 07/04/19at 22:10; Start 07/04/19 at 21:30; Stop 07/04/19 at 21:30; Status DC Sodium Chloride 1,000 ml @ 100 mls/hr Q10H IV ; Start 07/04/19 at 22:30; Stop 07/05/19 at 11:09; Status DC Acetaminophen (Tylenol) 650 mg PRN Q4HRS PRN PO TEMP OVER 100.4F OR MILD PAIN; Start 07/04/19 at 21:30 Morphine Sulfate (Morphine Sulfate) 2 mg PRN Q2HR PRN IV SEVERE PAIN 7-10; Start 07/04/19 at 21:30 Ondansetron HCl (Zofran) 4 mg STK-MED ONCE .ROUTE ; Start 07/04/19 at 22:14; Stop 07/04/19 at 22:14; Status DC Dexamethasone Sodium Phosphate (Decadron) 4 mg STK-MED ONCE .ROUTE ; Start 07/04/19 at 22:14; Stop 07/04/19 at 22:14; Status DC Desflurane (Suprane) 60 ml STK-MED ONCE IH ; Start 07/04/19 at 22:14; Stop 07/04/19 at 22:14; Status DC Neostigmine [place] (Neostigmine Methylsulfate) 5 mg STK-MED ONCE .ROUTE ; Start 07/04/19 at 22:14; Stop 07/04/19 at 22:15; Status DC Glycopyrrolate (Robinul) 1 mg STK-MED ONCE .ROUTE ; Start 07/04/19 at 22:15; Stop 07/04/19 at 22:15; Status DC Famotidine (Pepcid Vial) 20 mg STK-MED ONCE .ROUTE ; Start 07/04/19 at 22:24; Stop 07/04/19 at 22:24; Status DC Fentanyl Citrate (Fentanyl 2ml Vial) 100 mcg STK-MED ONCE .ROUTE ; Start 07/04/19 at 22:51; Stop 07/04/19 at 22:52; Status DC Enoxaparin Sodium (Lovenox 40mg Syringe) 40 mg Q24H SQ Last administered on 07/05/19at 09:28; Start 07/05/19 at 09:00 Sodium Chloride (Normal Saline Flush) 3 ml QSHIFT PRN IV AFTER MEDS AND BLOOD DRAWS; Start 07/05/19 at 00:00 Potassium Chloride/Sodium Chloride 1,000 ml @ 100 mls/hr Q10H IV Last administered on 07/05/19at 11:19; Start 07/05/19 at 00:30 Dextrose (Dextrose 50%-Water Syringe) 12.5 gm PRN Q15MIN PRN IV SEE COMMENTS; Start 07/05/19 at 00:00 Naloxone HCl (Narcan) 0.4 mg PRN Q2MIN PRN IV SEE INSTRUCTIONS; Start 07/05/19 at 00:00 Sodium Chloride 1,000 ml @ 25 mls/hr Q24H IV Last administered on 07/05/19at 01:30; Start 07/05/19 at 00:30 Hydromorphone HCl (Dilaudid) 1 mg PRN Q3HRS PRN IV SEVERE PAIN 7-10 Last administered on 07/05/19at 14:10; Start 07/05/19 at 00:00 Ondansetron HCl (Zofran) 4 mg PRN Q6HRS PRN IVP NAUESA, 1ST CHOICE; Start 07/05/19 at 00:00 Fentanyl Citrate (Fentanyl 2ml Vial) 100 mcg STK-MED ONCE .ROUTE ; Start 07/04 at 00:10; Stop 07/05/19 at 00:11; Status DC Prochlorperazine Edisylate (Compazine) 10 mg STK-MED ONCE .ROUTE ; Start at 00:11; Stop 07/05/19 at 00:11; Status DC Famotidine (Pepcid Vial) 20 mg QHS IVP ; Start 07/05/19 at 21:00 Active Scripts Active Reported No Known Medications Prior To Admisstion (Info) Each 1 Each DAILY Vitals/I & O Vital Sign - Last 24 Hours 07/04/19 07/04/19 07/04/19 07/04/19 16:33 17:03 17:09 17:33 Temp 98.0 98.0 Pulse 75 78 Resp 16 16 20 B/P (MAP) 134/86 (102) 144/64 (90) Pulse Ox 97 99 98 97 O2 Delivery Room Air Room Air Room Air Room Air 07/04/19 07/04/19 07/04/19 07/04/19 17:47 19:52 20:23 20:53 Pulse 102 106 78 Resp 21 18 B/P (MAP) 141/66 (91) 154/73 (100) 145/75 (98) Pulse Ox 98 97 96 O2 Delivery Room Air Room Air Room Air Room Air 07/05/19 07/05/19 07/05/19 07/05/19 00:00 00:00 00:15 00:15 Temp 97.8 97.8 97.8 97.8 Pulse 76 80 Resp 25 14 29 B/P (MAP) 183/75 176/74 Pulse Ox 100 99 99 O2 Delivery Mask Simple Mask Room Air Room Air O2 Flow Rate 10 10 07/05/19 07/05/19 07/05/19 07/05/19 00:30 00:35 00:39 00:45 Temp 97.8 98.2 97.8 98.2 Pulse 67 66 Resp B/P (MAP) 176/78 174/82 Pulse Ox 98 98 99 97 O2 Delivery Room Air Room Air Room Air Room Air 07/05/19 07/05/19 07/05/19 07/05/19 00:51 00:52 01:15 01:26 Temp 98.5 98.5 Pulse 63 Resp 22 B/P (MAP) 174/69 (104) Pulse Ox 97 97 96 O2 Delivery Room Air Room Air Room Air Room Air 07/05/19 07/05/19 07/05/19 07/05/19 01:30 01:30 01:30 01:30 Temp 98.1 98.1 Pulse 73 Resp 24 B/P (MAP) 160/65 (96) Pulse Ox 93 O2 Delivery Room Air Room Air Room Air Room Air 07/05/19 07/05/19 07/05/19 07/05/19 01:56 02:00 02:30 03:30 Temp 98.0 98.2 98.0 98.0 98.2 98.0 Pulse 72 75 76 Resp B/P (MAP) 175/80 (111) 167/79 (108) 182/81 (114) Pulse Ox 98 96 95 O2 Delivery Room Air Room Air Room Air Room Air 07/05/19 07/05/19 07/05/19 07/05/19 04:30 04:39 05:10 07:18 Temp 98.3 99.3 98.3 99.3 Pulse 74 83 Resp B/P (MAP) 176/84 (114) 154/91 (112) Pulse Ox 97 95 O2 Delivery Room Air Room Air Room Air Room Air 07/05/19 07/05/19 08:30 10:54 Temp 98.5 98.5 Pulse 70 Resp 16 B/P (MAP) 152/76 (101) Pulse Ox 95 O2 Delivery Room Air Room Air Intake and Output 07/04/19 07/04/19 07/05/19 15:00 23:00 07:00 Intake Total 1850 ml Output Total 120 ml Balance 1730 ml MYKEL HOWELL MD July 05, 2019 14:51
[2019-07-05] MEDS: FAMOTIDINE 20 MG/2 ML VIAL IVP SCH (20:06)
[2019-07-06] MEDS: MORPHINE SULFATE 2 MG/ML VIAL. IV PRN ×6 (01:43→23:37)
[2019-07-06 03:00] VITALS: BP 133/67
[2019-07-06] MEDS: POTASSIUM CL 20MEQ-0.45% NACL 1,000 ML IV SCH ×2 (04:37→16:43)
[2019-07-06 04:38] LABS: BASO % 0 % (0-3); EOS % 0 % (0-3); HEMATOCRIT 40.6 % (36.0-47.0); HEMOGLOBIN 13.7 g/dL (12.0-15.5); LYMPH # 1.3 x10^3/uL (1.0-4.8); LYMPH % 11 % (24-48); MEAN CORPUSCULAR HEMOGLOBIN 31 pg (25-35); MEAN CORPUSCULAR HGB CONC 34 g/dL (31-37); MEAN CORPUSCULAR VOLUME 92 fL (79-100); MONO # 1.2 x10^3/uL (0.0-1.1); MONO % 10 % (0-9); NEUT # 9.2 x10^3/uL (1.8-7.7); NEUT % 78 % (31-73); PLATELET COUNT 269 x10^3/uL (140-400); RED CELL DISTRIBUTION WIDTH 13.2 % (11.5-14.5); WHITE BLOOD COUNT 11.7 x10^3/uL (4.0-11.0)
[2019-07-06 04:55] LABS: ALBUMIN/GLOBULIN RATIO 0.8 (1.0-1.7); CALCIUM 8.3 mg/dL (8.5-10.1); CREATININE 0.7 mg/dL (0.6-1.0); GFR 91.3; POTASSIUM 4.1 mmol/L (3.5-5.1); TOTAL BILIRUBIN 1.5 mg/dL (0.2-1.0); TOTAL PROTEIN 6.6 g/dL (6.4-8.2)
[2019-07-06 07:00] VITALS: BP 152/73
[2019-07-06] MEDS: ENOXAPARIN 40 MG/0.4 ML SYRINGE. SQ SCH (08:04)
--- NOTE | 2019-07-06 10:01 | PDOC ---
PROGRESS NOTES Chief Complaint Chief Complaint improved. today. reports urinary frequency. bowman in place. denies chest pain. no diet started yet. History of Present Illness History of Present Illness ASSESMENT Abdominal Pain secondary to Ileocolic intussusception s/p laparoscopic right colon 07/04/19 Microscopic colitis diverticulosis hemorrhoids leukocytosis elevated lfts hx of Cholecystectomy urinary frequency, bowman placed on admission LALA, likely vasomotor nephropathy PLAN post op sx plans per gen sx advance diet as tolerated pain control check urine culture, defer abx for now IVF given slight bump in creatine labs in AM dvt ppx when okay with sx full code per GI note: EGD and colonoscopy w/ Dr. Calderon on 06/30/19 for diarrhea and celiac rule-out showed normal esophagus, normal stomach, nodular mucosa in duodenum (biopsy negative for pathology), 5mm adenomatous cecal polyp, a few small-mouthed diverticula from sigmoid to hepatic flexure, Grade 1 non-bleeding internal hemorrhoids, and random biopsies from sigmoid to cecum were suggestive of microscopic (lymphocytic colitis) Vitals Vitals Vital Signs Date Time Temp Pulse Resp B/P (MAP) Pulse Ox O2 Delivery O2 Flow Rate FiO2 07/06/19 07:52 Room Air 07/06/19 07:18 95 07/06/19 07:00 99.2 73 18 152/73 (99) 99.2 Physical Exam General: Alert, mild distress Heart: Other (increased rate) Abdomen: Soft, Other (tender mass palpable on the right side) Skin: Other (warm, dry) Labs LABS Laboratory Tests Test 07/06/19 03:45 White Blood Count 11.7 x10^3/uL (4.0-11.0) Red Blood Count 4.40 x10^6/uL (3.50-5.40) Hemoglobin 13.7 g/dL (12.0-15.5) Hematocrit 40.6 % (36.0-47.0) Mean Corpuscular Volume 92 fL (79-100) Mean Corpuscular Hemoglobin 31 pg (25-35) Mean Corpuscular Hemoglobin Concent 34 g/dL (31-37) Red Cell Distribution Width 13.2 % (11.5-14.5) Platelet Count 269 x10^3/uL (140-400) Neutrophils (%) (Auto) 78 % (31-73) Lymphocytes (%) (Auto) 11 % (24-48) Monocytes (%) (Auto) 10 % (0-9) Eosinophils (%) (Auto) 0 % (0-3) Basophils (%) (Auto) 0 % (0-3) Neutrophils # (Auto) 9.2 x10^3/uL (1.8-7.7) Lymphocytes # (Auto) 1.3 x10^3/uL (1.0-4.8) Monocytes # (Auto) 1.2 x10^3/uL (0.0-1.1) Eosinophils # (Auto) 0.0 x10^3/uL (0.0-0.7) Basophils # (Auto) 0.0 x10^3/uL (0.0-0.2) Sodium Level 135 mmol/L (136-145) Potassium Level 4.1 mmol/L (3.5-5.1) Chloride Level 99 mmol/L (98-107) Carbon Dioxide Level 26 mmol/L (21-32) Anion Gap 10 (6-14) Blood Urea Nitrogen 10 mg/dL (7-20) Creatinine 0.7 mg/dL (0.6-1.0) Estimated GFR (Cockcroft-Gault) 91.3 BUN/Creatinine Ratio 14 (6-20) Glucose Level 113 mg/dL (70-99) Calcium Level 8.3 mg/dL (8.5-10.1) Total Bilirubin 1.5 mg/dL (0.2-1.0) Aspartate Amino Transf (AST/SGOT) 21 U/L (15-37) Alanine Aminotransferase (ALT/SGPT) 40 U/L (14-59) Alkaline Phosphatase 53 U/L (46-116) Total Protein 6.6 g/dL (6.4-8.2) Albumin 3.0 g/dL (3.4-5.0) Albumin/Globulin Ratio 0.8 (1.0-1.7) Assessment and Plan Assessmemt and Plan Problems Medical Problems: (1) Intussusception intestine Status: Acute Comment Review of Relevant I have reviewed the following items fariha (where applicable) has been applied. Labs Laboratory Tests Test 07/04/19 15:58 07/04/19 16:17 07/04/19 16:55 07/04/19 17:20 Urine Collection Type Unknown Urine Color Yellow Urine Clarity Hazy Urine pH 6.0 (<5.0-8.0) Urine Specific Hardy >=1.030 (1.000-1.030) Urine Protein Trace mg/dL (NEG-TRACE) Urine Glucose (UA) Negative mg/dL (NEG) Urine Ketones (Stick) Negative mg/dL (NEG) Urine Blood Moderate (NEG) Urine Nitrite Negative (NEG) Urine Bilirubin Negative (NEG) Urine Urobilinogen Dipstick 0.2 mg/dL (0.2 mg/dL) Urine Leukocyte Esterase Moderate (NEG) Urine RBC 6-10 /HPF (0-2) Urine WBC 5-10 /HPF (0-4) Urine Squamous Epithelial Cells Many /LPF Urine Amorphous Sediment Present /HPF Urine Bacteria Mod /HPF (0-FEW) Urine Mucus Mod /LPF Urine Opiates Screen Neg (NEG) Urine Methadone Screen Neg (NEG) Urine Barbiturates Neg (NEG) Urine Phencyclidine Screen Neg (NEG) Urine Amphetamine/Methamphetamine Neg (NEG) Urine Benzodiazepines Screen Neg (NEG) Urine Cocaine Screen Neg (NEG) Urine Cannabinoids Screen Neg (NEG) Urine Ethyl Alcohol Neg (NEG) Bedside Urine HCG, Qualitative Hcg negative (Negative) White Blood Count 8.6 x10^3/uL (4.0-11.0) Red Blood Count 5.13 x10^6/uL (3.50-5.40) Hemoglobin 16.1 g/dL (12.0-15.5) Hematocrit 47.1 % (36.0-47.0) Mean Corpuscular Volume 92 fL (79-100) Mean Corpuscular Hemoglobin 31 pg (25-35) Mean Corpuscular Hemoglobin Concent 34 g/dL (31-37) Red Cell Distribution Width 13.3 % (11.5-14.5) Platelet Count 300 x10^3/uL (140-400) Neutrophils (%) (Auto) 73 % (31-73) Lymphocytes (%) (Auto) 17 % (24-48) Monocytes (%) (Auto) 8 % (0-9) Eosinophils (%) (Auto) 1 % (0-3) Basophils (%) (Auto) 0 % (0-3) Neutrophils # (Auto) 6.3 x10^3/uL (1.8-7.7) Lymphocytes # (Auto) 1.5 x10^3/uL (1.0-4.8) Monocytes # (Auto) 0.7 x10^3/uL (0.0-1.1) Eosinophils # (Auto) 0.1 x10^3/uL (0.0-0.7) Basophils # (Auto) 0.0 x10^3/uL (0.0-0.2) Sodium Level 136 mmol/L (136-145) Potassium Level 3.7 mmol/L (3.5-5.1) Chloride Level 102 mmol/L (98-107) Carbon Dioxide Level 23 mmol/L (21-32) Anion Gap 11 (6-14) Blood Urea Nitrogen 20 mg/dL (7-20) Creatinine 0.7 mg/dL (0.6-1.0) Estimated GFR (Cockcroft-Gault) 91.3 BUN/Creatinine Ratio 29 (6-20) Glucose Level 88 mg/dL (70-99) Calcium Level 8.8 mg/dL (8.5-10.1) Total Bilirubin 1.2 mg/dL (0.2-1.0) Aspartate Amino Transf (AST/SGOT) 15 U/L (15-37) Alanine Aminotransferase (ALT/SGPT) 22 U/L (14-59) Alkaline Phosphatase 39 U/L (46-116) Total Protein 7.1 g/dL (6.4-8.2) Albumin 3.9 g/dL (3.4-5.0) Albumin/Globulin Ratio 1.2 (1.0-1.7) Lipase 133 U/L (73-393) Ethyl Alcohol Level < 10 mg/dL (0-10) Test 07/05/19 03:54 07/06/19 03:45 White Blood Count 12.4 x10^3/uL (4.0-11.0) 11.7 x10^3/uL (4.0-11.0) Red Blood Count 4.69 x10^6/uL (3.50-5.40) 4.40 x10^6/uL (3.50-5.40) Hemoglobin 14.6 g/dL (12.0-15.5) 13.7 g/dL (12.0-15.5) Hematocrit 43.1 % (36.0-47.0) 40.6 % (36.0-47.0) Mean Corpuscular Volume 92 fL (79-100) 92 fL (79-100) Mean Corpuscular Hemoglobin 31 pg (25-35) 31 pg (25-35) Mean Corpuscular Hemoglobin Concent 34 g/dL (31-37) 34 g/dL (31-37) Red Cell Distribution Width 13.3 % (11.5-14.5) 13.2 % (11.5-14.5) Platelet Count 281 x10^3/uL (140-400) 269 x10^3/uL (140-400) Neutrophils (%) (Auto) 94 % (31-73) 78 % (31-73) Lymphocytes (%) (Auto) 2 % (24-48) 11 % (24-48) Monocytes (%) (Auto) 4 % (0-9) 10 % (0-9) Eosinophils (%) (Auto) 0 % (0-3) 0 % (0-3) Basophils (%) (Auto) 0 % (0-3) 0 % (0-3) Neutrophils # (Auto) 11.6 x10^3/uL (1.8-7.7) 9.2 x10^3/uL (1.8-7.7) Lymphocytes # (Auto) 0.3 x10^3/uL (1.0-4.8) 1.3 x10^3/uL (1.0-4.8) Monocytes # (Auto) 0.5 x10^3/uL (0.0-1.1) 1.2 x10^3/uL (0.0-1.1) Eosinophils # (Auto) 0.0 x10^3/uL (0.0-0.7) 0.0 x10^3/uL (0.0-0.7) Basophils # (Auto) 0.0 x10^3/uL (0.0-0.2) 0.0 x10^3/uL (0.0-0.2) Sodium Level 135 mmol/L (136-145) 135 mmol/L (136-145) Potassium Level 3.9 mmol/L (3.5-5.1) 4.1 mmol/L (3.5-5.1) Chloride Level 99 mmol/L (98-107) 99 mmol/L (98-107) Carbon Dioxide Level 23 mmol/L (21-32) 26 mmol/L (21-32) Anion Gap 13 (6-14) 10 (6-14) Blood Urea Nitrogen 20 mg/dL (7-20) 10 mg/dL (7-20) Creatinine 0.8 mg/dL (0.6-1.0) 0.7 mg/dL (0.6-1.0) Estimated GFR (Cockcroft-Gault) 78.3 91.3 BUN/Creatinine Ratio 25 (6-20) 14 (6-20) Glucose Level 196 mg/dL (70-99) 113 mg/dL (70-99) Calcium Level 8.3 mg/dL (8.5-10.1) 8.3 mg/dL (8.5-10.1) Total Bilirubin 1.9 mg/dL (0.2-1.0) 1.5 mg/dL (0.2-1.0) Aspartate Amino Transf (AST/SGOT) 59 U/L (15-37) 21 U/L (15-37) Alanine Aminotransferase (ALT/SGPT) 75 U/L (14-59) 40 U/L (14-59) Alkaline Phosphatase 66 U/L (46-116) 53 U/L (46-116) Total Protein 6.6 g/dL (6.4-8.2) 6.6 g/dL (6.4-8.2) Albumin 3.5 g/dL (3.4-5.0) 3.0 g/dL (3.4-5.0) Albumin/Globulin Ratio 1.1 (1.0-1.7) 0.8 (1.0-1.7) Laboratory Tests Test 07/06/19 03:45 White Blood Count 11.7 x10^3/uL (4.0-11.0) Red Blood Count 4.40 x10^6/uL (3.50-5.40) Hemoglobin 13.7 g/dL (12.0-15.5) Hematocrit 40.6 % (36.0-47.0) Mean Corpuscular Volume 92 fL (79-100) Mean Corpuscular Hemoglobin 31 pg (25-35) Mean Corpuscular Hemoglobin Concent 34 g/dL (31-37) Red Cell Distribution Width 13.2 % (11.5-14.5) Platelet Count 269 x10^3/uL (140-400) Neutrophils (%) (Auto) 78 % (31-73) Lymphocytes (%) (Auto) 11 % (24-48) Monocytes (%) (Auto) 10 % (0-9) Eosinophils (%) (Auto) 0 % (0-3) Basophils (%) (Auto) 0 % (0-3) Neutrophils # (Auto) 9.2 x10^3/uL (1.8-7.7) Lymphocytes # (Auto) 1.3 x10^3/uL (1.0-4.8) Monocytes # (Auto) 1.2 x10^3/uL (0.0-1.1) Eosinophils # (Auto) 0.0 x10^3/uL (0.0-0.7) Basophils # (Auto) 0.0 x10^3/uL (0.0-0.2) Sodium Level 135 mmol/L (136-145) Potassium Level 4.1 mmol/L (3.5-5.1) Chloride Level 99 mmol/L (98-107) Carbon Dioxide Level 26 mmol/L (21-32) Anion Gap 10 (6-14) Blood Urea Nitrogen 10 mg/dL (7-20) Creatinine 0.7 mg/dL (0.6-1.0) Estimated GFR (Cockcroft-Gault) 91.3 BUN/Creatinine Ratio 14 (6-20) Glucose Level 113 mg/dL (70-99) Calcium Level 8.3 mg/dL (8.5-10.1) Total Bilirubin 1.5 mg/dL (0.2-1.0) Aspartate Amino Transf (AST/SGOT) 21 U/L (15-37) Alanine Aminotransferase (ALT/SGPT) 40 U/L (14-59) Alkaline Phosphatase 53 U/L (46-116) Total Protein 6.6 g/dL (6.4-8.2) Albumin 3.0 g/dL (3.4-5.0) Albumin/Globulin Ratio 0.8 (1.0-1.7) Medications Current Medications Morphine Sulfate (Morphine Sulfate) 5 mg 1X ONCE IV Last administered on 07/04/19at 17:03; Start 07/04/19 at 16:45; Stop 07/04/19 at 16:46; Status DC Ondansetron HCl (Zofran) 4 mg 1X ONCE IVP Last administered on 07/04/19at 17:02; Start 07/04/19 at 16:45; Stop 07/04/19 at 16:46; Status DC Iohexol (Omnipaque 300 Mg/ml) 75 ml 1X ONCE IV Last administered on 07/04/19at 18:06; Start 07/04/19 at 17:45; Stop 07/04/19 at 17:46; Status DC Info (CONTRAST GIVEN -- Rx MONITORING) 1 each PRN DAILY PRN MC SEE COMMENTS; Start 07/04/19 at 18:00; Stop 07/06/19 at 17:59 Hydromorphone HCl (Dilaudid) 1 mg 1X ONCE IV Last administered on 07/04/19at 19:52; Start 07/04/19 at 19:45; Stop 07/04/19 at 19:46; Status DC Piperacillin Sod/ Tazobactam Sod 3.375 gm/Sodium Chloride 50 ml @ 100 mls/hr 1X ONCE IV Last administered on 07/04/19at 22:00; Start 07/04/19 at 20:45; Stop 07/04/19 at 21:14; Status DC Ondansetron HCl (Zofran) 4 mg PRN Q8HRS PRN IV NAUSEA/VOMITING; Start 07/04/19 at 20:45; Stop 07/05/19 at 20:44; Status DC Morphine Sulfate (Morphine Sulfate) 4 mg PRN Q2HR PRN IV PAIN; Start 07/04/19 at 20:45; Stop 07/05/19 at 20:44; Status DC Sodium Chloride 1,000 ml @ 125 mls/hr 1X ONCE IV ; Start 07/04/19 at 20:45; Stop 07/05/19 at 04:44; Status DC Propofol (Diprivan) 200 mg STK-MED ONCE IV ; Start 07/04/19 at 20:58; Stop 07/04/19 at 20:59; Status DC Lidocaine HCl (Lidocaine Pf 2% Vial) 5 ml STK-MED ONCE .ROUTE ; Start 07/04/19 at 20:58; Stop 07/04/19 at 20:59; Status DC Rocuronium Covert (Zemuron) 50 mg STK-MED ONCE .ROUTE ; Start 07/04/19 at 20:58; Stop 07/04/19 at 20:59; Status DC Fentanyl Citrate (Fentanyl 2ml Vial) 100 mcg STK-MED ONCE .ROUTE ; Start 07/04/19 at 20:58; Stop 07/04/19 at 20:59; Status DC Ondansetron HCl (Zofran) 4 mg PRN Q6HRS PRN IV NAUSEA/VOMITING 1ST CHOICE; Start 07/04/19 at 21:00; Stop 07/05/19 at 20:59; Status DC Fentanyl Citrate (Fentanyl 2ml Vial) 25 mcg PRN Q5MIN PRN IV MILD PAIN 1-3; Start 07/04/19 at 21:00; Stop 07/05/19 at 20:59; Status DC Fentanyl Citrate (Fentanyl 2ml Vial) 50 mcg PRN Q5MIN PRN IV MODERATE TO SEVERE PAIN Last administered on 07/05/19at 00:51; Start 07/04/19 at 21:00; Stop 07/05/19 at 20:59; Status DC Morphine Sulfate (Morphine Sulfate) 1 mg PRN Q10MIN PRN IV SEVERE PAIN 7-10 Last administered on 07/05/19at 00:52; Start 07/04/19 at 21:00; Stop 07/05/19 at 20:59; Status DC Ringer's Solution 1,000 ml @ 30 mls/hr Q24H IV ; Start 07/04/19 at 20:59; Stop 07/05/19 at 08:58; Status DC Lidocaine HCl (Xylocaine-Mpf 1% 2ml Vial) 2 ml PRN 1X PRN ID PRIOR TO IV START; Start 07/04/19 at 21:00; Stop 07/05/19 at 20:59; Status DC Hydromorphone HCl (Dilaudid) 0.5 mg PRN Q10MIN PRN IV SEV PAIN, Second choice; Start 07/04/19 at 21:00; Stop 07/05/19 at 20:59; Status DC Prochlorperazine Edisylate (Compazine) 5 mg PACU PRN PRN IV NAUSEA, MRX1 Last administered on 07/05/19at 01:04; Start 07/04/19 at 21:00; Stop 07/05/19 at 20:59; Status DC Bupivacaine HCl/ Epinephrine Bitart (Sensorcain-Epi 0.5%-1:[id number] Mpf) 30 ml STK-MED ONCE .ROUTE Last administered on 07/04/19at 22:10; Start 07/04/19 at 21:30; Stop 07/04/19 at 21:30; Status DC Sodium Chloride 1,000 ml @ 100 mls/hr Q10H IV ; Start 07/04/19 at 22:30; Stop 07/05/19 at 11:09; Status DC Acetaminophen (Tylenol) 650 mg PRN Q4HRS PRN PO TEMP OVER 100.4F OR MILD PAIN; Start 07/04/19 at 21:30 Morphine Sulfate (Morphine Sulfate) 2 mg PRN Q2HR PRN IV SEVERE PAIN 7-10 Last administered on 07/06/19at 07:18; Start 07/04/19 at 21:30 Ondansetron HCl (Zofran) 4 mg STK-MED ONCE .ROUTE ; Start 07/04/19 at 22:14; Stop 07/04/19 at 22:14; Status DC Dexamethasone Sodium Phosphate (Decadron) 4 mg STK-MED ONCE .ROUTE ; Start 07/04/19 at 22:14; Stop 07/04/19 at 22:14; Status DC Desflurane (Suprane) 60 ml STK-MED ONCE IH ; Start 07/04/19 at 22:14; Stop 07/03 at 22:14; Status DC Neostigmine Covert (Neostigmine Methylsulfate) 5 mg STK-MED ONCE .ROUTE ; Start 07/04/19 at 22:14; Stop 07/04/19 at 22:15; Status DC Glycopyrrolate (Robinul) 1 mg STK-MED ONCE .ROUTE ; Start 07/04/19 at 22:15; Stop 07/04/19 at 22:15; Status DC Famotidine (Pepcid Vial) 20 mg STK-MED ONCE .ROUTE ; Start 07/04/19 at 22:24; Stop 07/04/19 at 22:24; Status DC Fentanyl Citrate (Fentanyl 2ml Vial) 100 mcg STK-MED ONCE .ROUTE ; Start 07/04/19 at 22:51; Stop 07/04/19 at 22:52; Status DC Enoxaparin Sodium (Lovenox 40mg Syringe) 40 mg Q24H SQ Last administered on 07/06/19at 08:04; Start 07/05/19 at 09:00 Sodium Chloride (Normal Saline Flush) 3 ml QSHIFT PRN IV AFTER MEDS AND BLOOD DRAWS; Start 07/05/19 at 00:00 Potassium Chloride/Sodium Chloride 1,000 ml @ 100 mls/hr Q10H IV Last administered on 07/06/19at 04:37; Start 07/05/19 at 00:30 Dextrose (Dextrose 50%-Water Syringe) 12.5 gm PRN Q15MIN PRN IV SEE COMMENTS; Start 07/05/19 at 00:00 Naloxone HCl (Narcan) 0.4 mg PRN Q2MIN PRN IV SEE INSTRUCTIONS; Start 07/05/19 at 00:00 Sodium Chloride 1,000 ml @ 25 mls/hr Q24H IV Last administered on 07/05/19at 01:30; Start 07/05/19 at 00:30 Hydromorphone HCl (Dilaudid) 1 mg PRN Q3HRS PRN IV SEVERE PAIN 7-10 Last administered on 07/05/19at 22:19; Start 07/05/19 at 00:00 Ondansetron HCl (Zofran) 4 mg PRN Q6HRS PRN IVP NAUESA, 1ST CHOICE; Start 07/05/19 at 00:00 Fentanyl Citrate (Fentanyl 2ml Vial) 100 mcg STK-MED ONCE .ROUTE ; Start 07/05/19 at 00:10; Stop 07/05/19 at 00:11; Status DC Prochlorperazine Edisylate (Compazine) 10 mg STK-MED ONCE .ROUTE ; Start 07/05/19 at 00:11; Stop 07/05/19 at 00:11; Status DC Famotidine (Pepcid Vial) 20 mg QHS IVP Last administered on 07/05/19at 20:06; Start 07/05/19 at 21:00 Active Scripts Active Reported No Known Medications Prior To Admisstion (Info) Each 1 Each DAILY Vitals/I & O Vital Sign - Last 24 Hours 07/05/19 07/05/19 07/05/19 07/05/19 10:54 15:07 19:00 20:00 Temp 98.5 98.7 98.6 98.5 98.7 98.6 Pulse 70 78 77 Resp 16 16 16 B/P (MAP) 152/76 (101) 154/74 (100) 163/70 (101) Pulse Ox 95 94 92 O2 Delivery Room Air Room Air Room Air Room Air 07/05/19 07/05/19 07/05/19 07/06/19 22:19 22:49 23:00 01:43 Temp 99.0 99.0 Pulse 72 Resp 16 18 18 16 B/P (MAP) 148/65 (92) Pulse Ox 92 96 92 96 O2 Delivery Room Air Room Air Room Air Room Air 07/06/19 07/06/19 07/06/19 07/06/19 02:13 03:00 04:34 05:04 Temp 98.9 98.9 Pulse 75 Resp 17 18 20 B/P (MAP) 133/67 (89) Pulse Ox 95 95 95 95 O2 Delivery Room Air Room Air Room Air Room Air 07/06/19 07/06/19 07/06/19 07:00 07:18 07:52 Temp 99.2 99.2 Pulse 73 Resp 18 B/P (MAP) 152/73 (99) Pulse Ox 96 95 O2 Delivery Room Air Room Air Intake and Output 07/05/19 07/05/19 07/06/19 15:00 23:00 07:00 Intake Total 900 ml 1000 ml 0 ml Output Total 1525 ml 1600 ml Balance 900 ml -525 ml -1600 ml MYKEL HOWELL MD July 06, 2019 10:01
--- NOTE | 2019-07-06 10:13 | PDOC ---
Subjective: Subjective: Pain after got up to chair to bathe. Ice pack and meds help. Belching but no flatus. Thinks she might get liquids today. Objective: Vital Signs: Vital Signs Date Time Temp Pulse Resp B/P (MAP) Pulse Ox O2 Delivery O2 Flow Rate FiO2 07/06/19 07:52 Room Air 07/06/19 07:18 95 07/06/19 07:00 99.2 73 18 152/73 (99) 99.2 Labs: Laboratory Tests Test 07/06/19 03:45 White Blood Count 11.7 x10^3/uL Red Blood Count 4.40 x10^6/uL Hemoglobin 13.7 g/dL Hematocrit 40.6 % Mean Corpuscular Volume 92 fL Mean Corpuscular Hemoglobin 31 pg Mean Corpuscular Hemoglobin Concent 34 g/dL Red Cell Distribution Width 13.2 % Platelet Count 269 x10^3/uL Neutrophils (%) (Auto) 78 % Lymphocytes (%) (Auto) 11 % Monocytes (%) (Auto) 10 % Eosinophils (%) (Auto) 0 % Basophils (%) (Auto) 0 % Neutrophils # (Auto) 9.2 x10^3/uL Lymphocytes # (Auto) 1.3 x10^3/uL Monocytes # (Auto) 1.2 x10^3/uL Eosinophils # (Auto) 0.0 x10^3/uL Basophils # (Auto) 0.0 x10^3/uL Sodium Level 135 mmol/L Potassium Level 4.1 mmol/L Chloride Level 99 mmol/L Carbon Dioxide Level 26 mmol/L Anion Gap 10 Blood Urea Nitrogen 10 mg/dL Creatinine 0.7 mg/dL Estimated GFR (Cockcroft-Gault) 91.3 BUN/Creatinine Ratio 14 Glucose Level 113 mg/dL Calcium Level 8.3 mg/dL Total Bilirubin 1.5 mg/dL Aspartate Amino Transf (AST/SGOT) 21 U/L Alanine Aminotransferase (ALT/SGPT) 40 U/L Alkaline Phosphatase 53 U/L Total Protein 6.6 g/dL Albumin 3.0 g/dL Albumin/Globulin Ratio 0.8 PE: GEN: NAD LUNGS: CTAB HEART: RRR ABD: soft, holding ice pack over lower abdomen NEURO/PSYCH: A & O 3 A/P: Ileocolic intussusception s/p laparoscopic right colon 07/04/19 Leukocytosis, elevated LFTs - better -- Continue per surgery. Hemodynamically unstable?: No Is patient in severe pain?: Yes Is NPO status required?: Yes ANGUS ZEPEDA July 06, 2019 10:13
[2019-07-06 10:14] LABS: CALCIUM 8.4 mg/dL (8.5-10.1); CREATININE 0.8 mg/dL (0.6-1.0); GFR 78.3
[2019-07-06 11:00] VITALS: BP 144/73
--- NOTE | 2019-07-06 11:17 | NUR ---
SW following. Discussed with RN, pt from home alone. PT recommending home with assistance. Room air, NPO. SW will continue to follow.
--- NOTE | 2019-07-06 12:13 | PDOC ---
SURGICAL PROGRESS NOTE Subjective still sore, but doing OK Vital Signs Vital Signs Date Time Temp Pulse Resp B/P (MAP) Pulse Ox O2 Delivery O2 Flow Rate FiO2 07/06/19 11:00 99.0 75 18 144/73 (96) 94 99.0 07/06/19 07:52 Room Air I&O Intake and Output 07/06/19 07:00 Intake Total 1900 ml Output Total 3125 ml Balance -1225 ml Intake Oral 0 ml IV Total 1900 ml Output Urine Total 3125 ml PATIENT HAS A PATEL: No General: Alert, No acute distress Labs Laboratory Tests Test 07/04/19 15:58 07/04/19 16:17 07/04/19 16:55 07/04/19 17:20 Urine Collection Type Unknown Urine Color Yellow Urine Clarity Hazy Urine pH 6.0 (<5.0-8.0) Urine Specific [place] >=1.030 (1.000-1.030) Urine Protein Trace mg/dL (NEG-TRACE) Urine Glucose (UA) Negative mg/dL (NEG) Urine Ketones (Stick) Negative mg/dL (NEG) Urine Blood Moderate (NEG) Urine Nitrite Negative (NEG) Urine Bilirubin Negative (NEG) Urine Urobilinogen Dipstick 0.2 mg/dL (0.2 mg/dL) Urine Leukocyte Esterase Moderate (NEG) Urine RBC 6-10 /HPF (0-2) Urine WBC 5-10 /HPF (0-4) Urine Squamous Epithelial Cells Many /LPF Urine Amorphous Sediment Present /HPF Urine Bacteria Mod /HPF (0-FEW) Urine Mucus Mod /LPF Urine Opiates Screen Neg (NEG) Urine Methadone Screen Neg (NEG) Urine Barbiturates Neg (NEG) Urine Phencyclidine Screen Neg (NEG) Urine Amphetamine/Methamphetamine Neg (NEG) Urine Benzodiazepines Screen Neg (NEG) Urine Cocaine Screen Neg (NEG) Urine Cannabinoids Screen Neg (NEG) Urine Ethyl Alcohol Neg (NEG) Bedside Urine HCG, Qualitative Hcg negative (Negative) White Blood Count 8.6 x10^3/uL (4.0-11.0) Red Blood Count 5.13 x10^6/uL (3.50-5.40) Hemoglobin 16.1 g/dL (12.0-15.5) Hematocrit 47.1 % (36.0-47.0) Mean Corpuscular Volume 92 fL (79-100) Mean Corpuscular Hemoglobin 31 pg (25-35) Mean Corpuscular Hemoglobin Concent 34 g/dL (31-37) Red Cell Distribution Width 13.3 % (11.5-14.5) Platelet Count 300 x10^3/uL (140-400) Neutrophils (%) (Auto) 73 % (31-73) Lymphocytes (%) (Auto) 17 % (24-48) Monocytes (%) (Auto) 8 % (0-9) Eosinophils (%) (Auto) 1 % (0-3) Basophils (%) (Auto) 0 % (0-3) Neutrophils # (Auto) 6.3 x10^3/uL (1.8-7.7) Lymphocytes # (Auto) 1.5 x10^3/uL (1.0-4.8) Monocytes # (Auto) 0.7 x10^3/uL (0.0-1.1) Eosinophils # (Auto) 0.1 x10^3/uL (0.0-0.7) Basophils # (Auto) 0.0 x10^3/uL (0.0-0.2) Sodium Level 136 mmol/L (136-145) Potassium Level 3.7 mmol/L (3.5-5.1) Chloride Level 102 mmol/L (98-107) Carbon Dioxide Level 23 mmol/L (21-32) Anion Gap 11 (6-14) Blood Urea Nitrogen 20 mg/dL (7-20) Creatinine 0.7 mg/dL (0.6-1.0) Estimated GFR (Cockcroft-Gault) 91.3 BUN/Creatinine Ratio 29 (6-20) Glucose Level 88 mg/dL (70-99) Calcium Level 8.8 mg/dL (8.5-10.1) Total Bilirubin 1.2 mg/dL (0.2-1.0) Aspartate Amino Transf (AST/SGOT) 15 U/L (15-37) Alanine Aminotransferase (ALT/SGPT) 22 U/L (14-59) Alkaline Phosphatase 39 U/L (46-116) Total Protein 7.1 g/dL (6.4-8.2) Albumin 3.9 g/dL (3.4-5.0) Albumin/Globulin Ratio 1.2 (1.0-1.7) Lipase 133 U/L (73-393) Ethyl Alcohol Level < 10 mg/dL (0-10) Test 07/05/19 03:54 07/06/19 03:45 07/06/19 09:15 White Blood Count 12.4 x10^3/uL (4.0-11.0) 11.7 x10^3/uL (4.0-11.0) Red Blood Count 4.69 x10^6/uL (3.50-5.40) 4.40 x10^6/uL (3.50-5.40) Hemoglobin 14.6 g/dL (12.0-15.5) 13.7 g/dL (12.0-15.5) Hematocrit 43.1 % (36.0-47.0) 40.6 % (36.0-47.0) Mean Corpuscular Volume 92 fL (79-100) 92 fL (79-100) Mean Corpuscular Hemoglobin 31 pg (25-35) 31 pg (25-35) Mean Corpuscular Hemoglobin Concent 34 g/dL (31-37) 34 g/dL (31-37) Red Cell Distribution Width 13.3 % (11.5-14.5) 13.2 % (11.5-14.5) Platelet Count 281 x10^3/uL (140-400) 269 x10^3/uL (140-400) Neutrophils (%) (Auto) 94 % (31-73) 78 % (31-73) Lymphocytes (%) (Auto) 2 % (24-48) 11 % (24-48) Monocytes (%) (Auto) 4 % (0-9) 10 % (0-9) Eosinophils (%) (Auto) 0 % (0-3) 0 % (0-3) Basophils (%) (Auto) 0 % (0-3) 0 % (0-3) Neutrophils # (Auto) 11.6 x10^3/uL (1.8-7.7) 9.2 x10^3/uL (1.8-7.7) Lymphocytes # (Auto) 0.3 x10^3/uL (1.0-4.8) 1.3 x10^3/uL (1.0-4.8) Monocytes # (Auto) 0.5 x10^3/uL (0.0-1.1) 1.2 x10^3/uL (0.0-1.1) Eosinophils # (Auto) 0.0 x10^3/uL (0.0-0.7) 0.0 x10^3/uL (0.0-0.7) Basophils # (Auto) 0.0 x10^3/uL (0.0-0.2) 0.0 x10^3/uL (0.0-0.2) Sodium Level 135 mmol/L (136-145) 135 mmol/L (136-145) 137 mmol/L (136-145) Potassium Level 3.9 mmol/L (3.5-5.1) 4.1 mmol/L (3.5-5.1) 4.0 mmol/L (3.5-5.1) Chloride Level 99 mmol/L (98-107) 99 mmol/L (98-107) 100 mmol/L (98-107) Carbon Dioxide Level 23 mmol/L (21-32) 26 mmol/L (21-32) 28 mmol/L (21-32) Anion Gap 13 (6-14) 10 (6-14) 9 (6-14) Blood Urea Nitrogen 20 mg/dL (7-20) 10 mg/dL (7-20) 9 mg/dL (7-20) Creatinine 0.8 mg/dL (0.6-1.0) 0.7 mg/dL (0.6-1.0) 0.8 mg/dL (0.6-1.0) Estimated GFR (Cockcroft-Gault) 78.3 91.3 78.3 BUN/Creatinine Ratio 25 (6-20) 14 (6-20) Glucose Level 196 mg/dL (70-99) 113 mg/dL (70-99) 105 mg/dL (70-99) Calcium Level 8.3 mg/dL (8.5-10.1) 8.3 mg/dL (8.5-10.1) 8.4 mg/dL (8.5-10.1) Total Bilirubin 1.9 mg/dL (0.2-1.0) 1.5 mg/dL (0.2-1.0) Aspartate Amino Transf (AST/SGOT) 59 U/L (15-37) 21 U/L (15-37) Alanine Aminotransferase (ALT/SGPT) 75 U/L (14-59) 40 U/L (14-59) Alkaline Phosphatase 66 U/L (46-116) 53 U/L (46-116) Total Protein 6.6 g/dL (6.4-8.2) 6.6 g/dL (6.4-8.2) Albumin 3.5 g/dL (3.4-5.0) 3.0 g/dL (3.4-5.0) Albumin/Globulin Ratio 1.1 (1.0-1.7) 0.8 (1.0-1.7) Laboratory Tests Test 07/06/19 03:45 07/06/19 09:15 White Blood Count 11.7 x10^3/uL (4.0-11.0) Red Blood Count 4.40 x10^6/uL (3.50-5.40) Hemoglobin 13.7 g/dL (12.0-15.5) Hematocrit 40.6 % (36.0-47.0) Mean Corpuscular Volume 92 fL (79-100) Mean Corpuscular Hemoglobin 31 pg (25-35) Mean Corpuscular Hemoglobin Concent 34 g/dL (31-37) Red Cell Distribution Width 13.2 % (11.5-14.5) Platelet Count 269 x10^3/uL (140-400) Neutrophils (%) (Auto) 78 % (31-73) Lymphocytes (%) (Auto) 11 % (24-48) Monocytes (%) (Auto) 10 % (0-9) Eosinophils (%) (Auto) 0 % (0-3) Basophils (%) (Auto) 0 % (0-3) Neutrophils # (Auto) 9.2 x10^3/uL (1.8-7.7) Lymphocytes # (Auto) 1.3 x10^3/uL (1.0-4.8) Monocytes # (Auto) 1.2 x10^3/uL (0.0-1.1) Eosinophils # (Auto) 0.0 x10^3/uL (0.0-0.7) Basophils # (Auto) 0.0 x10^3/uL (0.0-0.2) Sodium Level 135 mmol/L (136-145) 137 mmol/L (136-145) Potassium Level 4.1 mmol/L (3.5-5.1) 4.0 mmol/L (3.5-5.1) Chloride Level 99 mmol/L (98-107) 100 mmol/L (98-107) Carbon Dioxide Level 26 mmol/L (21-32) 28 mmol/L (21-32) Anion Gap 10 (6-14) 9 (6-14) Blood Urea Nitrogen 10 mg/dL (7-20) 9 mg/dL (7-20) Creatinine 0.7 mg/dL (0.6-1.0) 0.8 mg/dL (0.6-1.0) Estimated GFR (Cockcroft-Gault) 91.3 78.3 BUN/Creatinine Ratio 14 (6-20) Glucose Level 113 mg/dL (70-99) 105 mg/dL (70-99) Calcium Level 8.3 mg/dL (8.5-10.1) 8.4 mg/dL (8.5-10.1) Total Bilirubin 1.5 mg/dL (0.2-1.0) Aspartate Amino Transf (AST/SGOT) 21 U/L (15-37) Alanine Aminotransferase (ALT/SGPT) 40 U/L (14-59) Alkaline Phosphatase 53 U/L (46-116) Total Protein 6.6 g/dL (6.4-8.2) Albumin 3.0 g/dL (3.4-5.0) Albumin/Globulin Ratio 0.8 (1.0-1.7) Problem List Problems Medical Problems: (1) Intussusception intestine Status: Acute Assessment/Plan POD 2 ileo-colic resection start clears po pain meds ambulate NETO STONE MD July 06, 2019 12:13
[2019-07-06 15:00] VITALS: BP 156/79
[2019-07-06] MEDS: oxyCODONE/APAP 5/325 1 TAB TABLET PO PRN ×2 (15:58→20:43)
[2019-07-06 19:00] VITALS: BP 156/72
[2019-07-06] MEDS: FAMOTIDINE 20 MG/2 ML VIAL IVP SCH (20:43)
[2019-07-06 23:00] VITALS: BP 159/77
[2019-07-07] MEDS: IV NORMAL SALINE 1000ML BAG 1,000 ML IV SCH (00:30)
[2019-07-07] MEDS: POTASSIUM CL 20MEQ-0.45% NACL 1,000 ML IV SCH ×2 (01:21→12:30)
[2019-07-07 03:00] VITALS: BP 123/70
[2019-07-07] MEDS: oxyCODONE/APAP 5/325 1 TAB TABLET PO PRN ×4 (03:51→18:03)
[2019-07-07 05:05] LABS: BASO % 0 % (0-3); EOS # 0.1 x10^3/uL (0.0-0.7); EOS % 1 % (0-3); HEMATOCRIT 42.5 % (36.0-47.0); HEMOGLOBIN 14.3 g/dL (12.0-15.5); LYMPH # 1.4 x10^3/uL (1.0-4.8); LYMPH % 14 % (24-48); MEAN CORPUSCULAR HEMOGLOBIN 31 pg (25-35); MEAN CORPUSCULAR HGB CONC 34 g/dL (31-37); MEAN CORPUSCULAR VOLUME 93 fL (79-100); MONO # 0.9 x10^3/uL (0.0-1.1); MONO % 9 % (0-9); NEUT # 7.8 x10^3/uL (1.8-7.7); NEUT % 76 % (31-73); PLATELET COUNT 278 x10^3/uL (140-400); RED BLOOD COUNT 4.58 x10^6/uL (3.50-5.40); RED CELL DISTRIBUTION WIDTH 13.2 % (11.5-14.5); WHITE BLOOD COUNT 10.3 x10^3/uL (4.0-11.0)
[2019-07-07 07:15] VITALS: BP 155/73
[2019-07-07] MEDS: ENOXAPARIN 40 MG/0.4 ML SYRINGE. SQ SCH (08:35)
--- NOTE | 2019-07-07 08:53 | NUR ---
SW following. Discussed with RN, pt advancing diet today, currently clear liquid diet. PT recommending home with assistance - SW to discuss with pt possibility of home health. SW will continue to follow. Addendum: 07/07/19 at 1600 by DULCE FLEMING LONNIE attempted to meet with pt this morning - pt was asleep. LONNIE discussed with RN RN advised pt does not need home health at discharge, pt is young and can get around fine. No further SW needs.
--- NOTE | 2019-07-07 09:34 | PDOC ---
PROGRESS NOTES Chief Complaint Chief Complaint pain improved. ready to start diet. has not gotten out of bed much. bowman still in place. History of Present Illness History of Present Illness ASSESMENT Abdominal Pain secondary to Ileocolic intussusception s/p laparoscopic right colon 07/04/19 Microscopic colitis diverticulosis hemorrhoids leukocytosis, resolved elevated lfts hx of Cholecystectomy urinary frequency, bowman placed on admission PLAN post op sx plans per gen sx advance diet as tolerated pain control, wean pain meds as tolerated check urine culture, defer abx for now patient does not have LALA labs stable dvt ppx when okay with sx full code per GI note: EGD and colonoscopy w/ Dr. Calderon on 06/30/19 for diarrhea and celiac rule-out showed normal esophagus, normal stomach, nodular mucosa in duode num (biopsy negative for pathology), 5mm adenomatous cecal polyp, a few small- mouthed diverticula from sigmoid to hepatic flexure, Grade 1 non-bleeding internal hemorrhoids, and random biopsies from sigmoid to cecum were suggestive of microscopic (lymphocytic colitis) Vitals Vitals Vital Signs Date Time Temp Pulse Resp B/P (MAP) Pulse Ox O2 Delivery O2 Flow Rate FiO2 07/07/19 08:35 93 Room Air 07/07/19 07:15 98.6 72 16 155/73 (100) 98.6 Physical Exam General: Alert, No acute distress Heart: Other (increased rate) Abdomen: Soft, Other (tender mass palpable on the right side) Skin: Other (warm, dry) Labs LABS Laboratory Tests Test 07/07/19 04:30 White Blood Count 10.3 x10^3/uL (4.0-11.0) Red Blood Count 4.58 x10^6/uL (3.50-5.40) Hemoglobin 14.3 g/dL (12.0-15.5) Hematocrit 42.5 % (36.0-47.0) Mean Corpuscular Volume 93 fL (79-100) Mean Corpuscular Hemoglobin 31 pg (25-35) Mean Corpuscular Hemoglobin Concent 34 g/dL (31-37) Red Cell Distribution Width 13.2 % (11.5-14.5) Platelet Count 278 x10^3/uL (140-400) Neutrophils (%) (Auto) 76 % (31-73) Lymphocytes (%) (Auto) 14 % (24-48) Monocytes (%) (Auto) 9 % (0-9) Eosinophils (%) (Auto) 1 % (0-3) Basophils (%) (Auto) 0 % (0-3) Neutrophils # (Auto) 7.8 x10^3/uL (1.8-7.7) Lymphocytes # (Auto) 1.4 x10^3/uL (1.0-4.8) Monocytes # (Auto) 0.9 x10^3/uL (0.0-1.1) Eosinophils # (Auto) 0.1 x10^3/uL (0.0-0.7) Basophils # (Auto) 0.0 x10^3/uL (0.0-0.2) Assessment and Plan Assessmemt and Plan Problems Medical Problems: (1) Intussusception intestine Status: Acute Comment Review of Relevant I have reviewed the following items fariha (where applicable) has been applied. Labs Laboratory Tests Test 07/06/19 03:45 07/06/19 09:15 07/07/19 04:30 White Blood Count 11.7 x10^3/uL (4.0-11.0) 10.3 x10^3/uL (4.0-11.0) Red Blood Count 4.40 x10^6/uL (3.50-5.40) 4.58 x10^6/uL (3.50-5.40) Hemoglobin 13.7 g/dL (12.0-15.5) 14.3 g/dL (12.0-15.5) Hematocrit 40.6 % (36.0-47.0) 42.5 % (36.0-47.0) Mean Corpuscular Volume 92 fL (79-100) 93 fL (79-100) Mean Corpuscular Hemoglobin 31 pg (25-35) 31 pg (25-35) Mean Corpuscular Hemoglobin Concent 34 g/dL (31-37) 34 g/dL (31-37) Red Cell Distribution Width 13.2 % (11.5-14.5) 13.2 % (11.5-14.5) Platelet Count 269 x10^3/uL (140-400) 278 x10^3/uL (140-400) Neutrophils (%) (Auto) 78 % (31-73) 76 % (31-73) Lymphocytes (%) (Auto) 11 % (24-48) 14 % (24-48) Monocytes (%) (Auto) 10 % (0-9) 9 % (0-9) Eosinophils (%) (Auto) 0 % (0-3) 1 % (0-3) Basophils (%) (Auto) 0 % (0-3) 0 % (0-3) Neutrophils # (Auto) 9.2 x10^3/uL (1.8-7.7) 7.8 x10^3/uL (1.8-7.7) Lymphocytes # (Auto) 1.3 x10^3/uL (1.0-4.8) 1.4 x10^3/uL (1.0-4.8) Monocytes # (Auto) 1.2 x10^3/uL (0.0-1.1) 0.9 x10^3/uL (0.0-1.1) Eosinophils # (Auto) 0.0 x10^3/uL (0.0-0.7) 0.1 x10^3/uL (0.0-0.7) Basophils # (Auto) 0.0 x10^3/uL (0.0-0.2) 0.0 x10^3/uL (0.0-0.2) Sodium Level 135 mmol/L (136-145) 137 mmol/L (136-145) Potassium Level 4.1 mmol/L (3.5-5.1) 4.0 mmol/L (3.5-5.1) Chloride Level 99 mmol/L (98-107) 100 mmol/L (98-107) Carbon Dioxide Level 26 mmol/L (21-32) 28 mmol/L (21-32) Anion Gap 10 (6-14) 9 (6-14) Blood Urea Nitrogen 10 mg/dL (7-20) 9 mg/dL (7-20) Creatinine 0.7 mg/dL (0.6-1.0) 0.8 mg/dL (0.6-1.0) Estimated GFR (Cockcroft-Gault) 91.3 78.3 BUN/Creatinine Ratio 14 (6-20) Glucose Level 113 mg/dL (70-99) 105 mg/dL (70-99) Calcium Level 8.3 mg/dL (8.5-10.1) 8.4 mg/dL (8.5-10.1) Total Bilirubin 1.5 mg/dL (0.2-1.0) Aspartate Amino Transf (AST/SGOT) 21 U/L (15-37) Alanine Aminotransferase (ALT/SGPT) 40 U/L (14-59) Alkaline Phosphatase 53 U/L (46-116) Total Protein 6.6 g/dL (6.4-8.2) Albumin 3.0 g/dL (3.4-5.0) Albumin/Globulin Ratio 0.8 (1.0-1.7) Laboratory Tests Test 07/07/19 04:30 White Blood Count 10.3 x10^3/uL (4.0-11.0) Red Blood Count 4.58 x10^6/uL (3.50-5.40) Hemoglobin 14.3 g/dL (12.0-15.5) Hematocrit 42.5 % (36.0-47.0) Mean Corpuscular Volume 93 fL (79-100) Mean Corpuscular Hemoglobin 31 pg (25-35) Mean Corpuscular Hemoglobin Concent 34 g/dL (31-37) Red Cell Distribution Width 13.2 % (11.5-14.5) Platelet Count 278 x10^3/uL (140-400) Neutrophils (%) (Auto) 76 % (31-73) Lymphocytes (%) (Auto) 14 % (24-48) Monocytes (%) (Auto) 9 % (0-9) Eosinophils (%) (Auto) 1 % (0-3) Basophils (%) (Auto) 0 % (0-3) Neutrophils # (Auto) 7.8 x10^3/uL (1.8-7.7) Lymphocytes # (Auto) 1.4 x10^3/uL (1.0-4.8) Monocytes # (Auto) 0.9 x10^3/uL (0.0-1.1) Eosinophils # (Auto) 0.1 x10^3/uL (0.0-0.7) Basophils # (Auto) 0.0 x10^3/uL (0.0-0.2) Medications Current Medications Morphine Sulfate (Morphine Sulfate) 5 mg 1X ONCE IV Last administered on 07/04/19at 17:03; Start 07/04/19 at 16:45; Stop 07/04/19 at 16:46; Status DC Ondansetron HCl (Zofran) 4 mg 1X ONCE IVP Last administered on 07/04/19at 17:02; Start 07/04/19 at 16:45; Stop 07/04/19 at 16:46; Status DC Iohexol (Omnipaque 300 Mg/ml) 75 ml 1X ONCE IV Last administered on 07/04/19at 18:06; Start 07/04/19 at 17:45; Stop 07/04/19 at 17:46; Status DC Info (CONTRAST GIVEN -- Rx MONITORING) 1 each PRN DAILY PRN MC SEE COMMENTS; Start 07/04/19 at 18:00; Stop 07/06/19 at 17:59; Status DC Hydromorphone HCl (Dilaudid) 1 mg 1X ONCE IV Last administered on 07/04/19at 19:52; Start 07/04/19 at 19:45; Stop 07/04/19 at 19:46; Status DC Piperacillin Sod/ Tazobactam Sod 3.375 gm/Sodium Chloride 50 ml @ 100 mls/hr 1X ONCE IV Last administered on 07/04/19at 22:00; Start 07/04/19 at 20:45; Stop 07/04/19 at 21:14; Status DC Ondansetron HCl (Zofran) 4 mg PRN Q8HRS PRN IV NAUSEA/VOMITING; Start 07/04/19 at 20:45; Stop 07/05/19 at 20:44; Status DC Morphine Sulfate (Morphine Sulfate) 4 mg PRN Q2HR PRN IV PAIN; Start 07/04/19 at 20:45; Stop 07/05/19 at 20:44; Status DC Sodium Chloride 1,000 ml @ 125 mls/hr 1X ONCE IV ; Start 07/04/19 at 20:45; Stop 07/05/19 at 04:44; Status DC Propofol (Diprivan) 200 mg STK-MED ONCE IV ; Start 07/04/19 at 20:58; Stop 07/04/19 at 20:59; Status DC Lidocaine HCl (Lidocaine Pf 2% Vial) 5 ml STK-MED ONCE .ROUTE ; Start 07/04/19 at 20:58; Stop 07/04/19 at 20:59; Status DC Rocuronium [place] (Zemuron) 50 mg STK-MED ONCE .ROUTE ; Start 07/04/19 at 20:58; Stop 07/04/19 at 20:59; Status DC Fentanyl Citrate (Fentanyl 2ml Vial) 100 mcg STK-MED ONCE .ROUTE ; Start 07/04/19 at 20:58; Stop 07/04/19 at 20:59; Status DC Ondansetron HCl (Zofran) 4 mg PRN Q6HRS PRN IV NAUSEA/VOMITING 1ST CHOICE; Start 07/04/19 at 21:00; Stop 07/05/19 at 20:59; Status DC Fentanyl Citrate (Fentanyl 2ml Vial) 25 mcg PRN Q5MIN PRN IV MILD PAIN 1-3; Start 07/04/19 at 21:00; Stop 07/05/19 at 20:59; Status DC Fentanyl Citrate (Fentanyl 2ml Vial) 50 mcg PRN Q5MIN PRN IV MODERATE TO SEVERE PAIN Last administered on 07/05/19at 00:51; Start 07/04/19 at 21:00; Stop 07/05/19 at 20:59; Status DC Morphine Sulfate (Morphine Sulfate) 1 mg PRN Q10MIN PRN IV SEVERE PAIN 7-10 Last administered on 07/05/19at 00:52; Start 07/04/19 at 21:00; Stop 07/05/19 at 20:59; Status DC Ringer's Solution 1,000 ml @ 30 mls/hr Q24H IV ; Start 07/04/19 at 20:59; Stop 07/05/19 at 08:58; Status DC Lidocaine HCl (Xylocaine-Mpf 1% 2ml Vial) 2 ml PRN 1X PRN ID PRIOR TO IV START; Start 07/04/19 at 21:00; Stop 07/05/19 at 20:59; Status DC Hydromorphone HCl (Dilaudid) 0.5 mg PRN Q10MIN PRN IV SEV PAIN, Second choice; Start 07/04/19 at 21:00; Stop 07/05/19 at 20:59; Status DC Prochlorperazine Edisylate (Compazine) 5 mg PACU PRN PRN IV NAUSEA, MRX1 Last administered on 07/05/19at 01:04; Start 07/04/19 at 21:00; Stop 07/05/19 at 20:59; Status DC Bupivacaine HCl/ Epinephrine Bitart (Sensorcain-Epi 0.5%-1:360294 Mpf) 30 ml STK-MED ONCE .ROUTE Last administered on 07/04/19at 22:10; Start 07/04/19 at 21:30; Stop 07/04/19 at 21:30; Status DC Sodium Chloride 1,000 ml @ 100 mls/hr Q10H IV ; Start 07/04/19 at 22:30; Stop 07/05/19 at 11:09; Status DC Acetaminophen (Tylenol) 650 mg PRN Q4HRS PRN PO TEMP OVER 100.4F OR MILD PAIN; Start 07/04/19 at 21:30 Morphine Sulfate (Morphine Sulfate) 2 mg PRN Q2HR PRN IV MODERATE PAIN Last administered on 07/06/19at 23:37; Start 07/04/19 at 21:30 Ondansetron HCl (Zofran) 4 mg STK-MED ONCE .ROUTE ; Start 07/04/19 at 22:14; Stop 07/04/19 at 22:14; Status DC Dexamethasone Sodium Phosphate (Decadron) 4 mg STK-MED ONCE .ROUTE ; Start 07/04/19 at 22:14; Stop 07/04/19 at 22:14; Status DC Desflurane (Suprane) 60 ml STK-MED ONCE IH ; Start 07/04/19 at 22:14; Stop 07/03 at 22:14; Status DC Neostigmine [place] (Neostigmine Methylsulfate) 5 mg STK-MED ONCE .ROUTE ; Start 07/04/19 at 22:14; Stop 07/04/19 at 22:15; Status DC Glycopyrrolate (Robinul) 1 mg STK-MED ONCE .ROUTE ; Start 07/04/19 at 22:15; Stop 07/04/19 at 22:15; Status DC Famotidine (Pepcid Vial) 20 mg STK-MED ONCE .ROUTE ; Start 07/04/19 at 22:24; Stop 07/04/19 at 22:24; Status DC Fentanyl Citrate (Fentanyl 2ml Vial) 100 mcg STK-MED ONCE .ROUTE ; Start 07/04/19 at 22:51; Stop 07/04/19 at 22:52; Status DC Enoxaparin Sodium (Lovenox 40mg Syringe) 40 mg Q24H SQ Last administered on 07/07/19at 08:35; Start 07/05/19 at 09:00 Sodium Chloride (Normal Saline Flush) 3 ml QSHIFT PRN IV AFTER MEDS AND BLOOD DRAWS; Start 07/05/19 at 00:00 Potassium Chloride/Sodium Chloride 1,000 ml @ 100 mls/hr Q10H IV Last administered on 07/07/19at 01:21; Start 07/05/19 at 00:30 Dextrose (Dextrose 50%-Water Syringe) 12.5 gm PRN Q15MIN PRN IV SEE COMMENTS; Start 07/05/19 at 00:00 Naloxone HCl (Narcan) 0.4 mg PRN Q2MIN PRN IV SEE INSTRUCTIONS; Start 07/05/19 at 00:00 Sodium Chloride 1,000 ml @ 25 mls/hr Q24H IV Last administered on 07/05/19at 01:30; Start 07/05/19 at 00:30 Hydromorphone HCl (Dilaudid) 1 mg PRN Q3HRS PRN IV SEVERE PAIN 7-10 Last administered on 07/05/19at 22:19; Start 07/05/19 at 00:00 Ondansetron HCl (Zofran) 4 mg PRN Q6HRS PRN IVP NAUESA, 1ST CHOICE; Start 07/05/19 at 00:00 Fentanyl Citrate (Fentanyl 2ml Vial) 100 mcg STK-MED ONCE .ROUTE ; Start 07/05/19 at 00:10; Stop 07/05/19 at 00:11; Status DC Prochlorperazine Edisylate (Compazine) 10 mg STK-MED ONCE .ROUTE ; Start 07/05/19 at 00:11; Stop 07/05/19 at 00:11; Status DC Famotidine (Pepcid Vial) 20 mg QHS IVP Last administered on 07/06/19at 20:43; Start 07/05/19 at 21:00 Oxycodone/ Acetaminophen (Percocet 5/325) 1 tab PRN Q4HRS PRN PO MODERATE PAIN, SEVERE PAIN Last administered on 07/07/19at 08:35; Start 07/06/19 at 12:15 Active Scripts Active Reported No Known Medications Prior To Admisstion (Info) Each 1 Each DAILY Vitals/I & O Vital Sign - Last 24 Hours 07/06/19 07/06/19 07/06/19 07/06/19 11:00 15:00 19:00 20:15 Temp 99.0 99.1 97.6 99.0 99.1 97.6 Pulse 75 71 69 Resp 18 18 18 B/P (MAP) 144/73 (96) 156/79 (104) 156/72 (100) Pulse Ox 94 97 98 O2 Delivery Room Air Room Air 07/06/19 07/06/19 07/06/19 07/06/19 20:43 21:43 23:00 23:37 Temp 98.6 98.6 Pulse 78 Resp 16 18 B/P (MAP) 159/77 (104) Pulse Ox 98 95 98 O2 Delivery Room Air Room Air Room Air Room Air 07/07/19 07/07/19 07/07/19 07/07/19 00:07 03:00 03:51 04:51 Temp 98.1 98.1 Pulse 72 Resp 18 18 B/P (MAP) 123/70 (87) Pulse Ox 95 95 O2 Delivery Room Air Room Air Room Air Room Air 07/07/19 07/07/19 07:15 08:35 Temp 98.6 98.6 Pulse 72 Resp 16 B/P (MAP) 155/73 (100) Pulse Ox 93 93 O2 Delivery Room Air Room Air Intake and Output 07/06/19 07/06/19 07/07/19 15:00 23:00 07:00 Intake Total 120 ml 1410 ml 1252 ml Output Total 1500 ml 1750 ml 1300 ml Balance -1380 ml -340 ml -48 ml Hemodynamically unstable?: No Is patient in severe pain?: Yes Is NPO status required?: Yes MYKEL HOWELL MD July 07, 2019 09:34
--- NOTE | 2019-07-07 10:30 | PDOC ---
Subjective: Subjective: Feels a little better. Jules out, taking sips of sprite. No flatus. Neck is stiff. Concern for UTI - wants antibiotic before it gets worse. Objective: Vital Signs: Vital Signs Date Time Temp Pulse Resp B/P (MAP) Pulse Ox O2 Delivery O2 Flow Rate FiO2 07/07/19 09:35 93 Room Air 07/07/19 07:15 98.6 72 16 155/73 (100) 98.6 Labs: Laboratory Tests Test 07/07/19 04:30 White Blood Count 10.3 x10^3/uL Red Blood Count 4.58 x10^6/uL Hemoglobin 14.3 g/dL Hematocrit 42.5 % Mean Corpuscular Volume 93 fL Mean Corpuscular Hemoglobin 31 pg Mean Corpuscular Hemoglobin Concent 34 g/dL Red Cell Distribution Width 13.2 % Platelet Count 278 x10^3/uL Neutrophils (%) (Auto) 76 % Lymphocytes (%) (Auto) 14 % Monocytes (%) (Auto) 9 % Eosinophils (%) (Auto) 1 % Basophils (%) (Auto) 0 % Neutrophils # (Auto) 7.8 x10^3/uL Lymphocytes # (Auto) 1.4 x10^3/uL Monocytes # (Auto) 0.9 x10^3/uL Eosinophils # (Auto) 0.1 x10^3/uL Basophils # (Auto) 0.0 x10^3/uL PE: GEN: NAD LUNGS: CTAB HEART: RRR ABD: soft NEURO/PSYCH: A & O 3 - looks better today A/P: Ileocolic intussusception s/p laparoscopic right colon 07/04/19 ?UTI - per primary -- Diet per surgery, possible UTI per primary. Follow-up w/ GI as outpt re: recent colonoscopy results/microscopic colitis. Hemodynamically unstable?: No Is patient in severe pain?: No Is NPO status required?: No ANGUS ZEPEDA July 07, 2019 10:29
[2019-07-07 11:12] VITALS: BP 140/86
--- NOTE | 2019-07-07 13:31 | PDOC ---
SURGICAL PROGRESS NOTE Subjective POD 3 ileocolic resection has had some small loose stools Vital Signs Vital Signs Date Time Temp Pulse Resp B/P (MAP) Pulse Ox O2 Delivery O2 Flow Rate FiO2 07/07/19 12:33 Room Air 07/07/19 11:12 98.4 80 16 140/86 (104) 96 98.4 I&O Intake and Output 07/07/19 07:00 Intake Total 2782 ml Output Total 4550 ml Balance -1768 ml Intake Oral 530 ml IV Total 2252 ml Output Urine Total 4550 ml PATIENT HAS A PATEL: No General: Alert Abdomen: Soft Labs Laboratory Tests Test 07/06/19 03:45 07/06/19 09:15 07/07/19 04:30 White Blood Count 11.7 x10^3/uL (4.0-11.0) 10.3 x10^3/uL (4.0-11.0) Red Blood Count 4.40 x10^6/uL (3.50-5.40) 4.58 x10^6/uL (3.50-5.40) Hemoglobin 13.7 g/dL (12.0-15.5) 14.3 g/dL (12.0-15.5) Hematocrit 40.6 % (36.0-47.0) 42.5 % (36.0-47.0) Mean Corpuscular Volume 92 fL (79-100) 93 fL (79-100) Mean Corpuscular Hemoglobin 31 pg (25-35) 31 pg (25-35) Mean Corpuscular Hemoglobin Concent 34 g/dL (31-37) 34 g/dL (31-37) Red Cell Distribution Width 13.2 % (11.5-14.5) 13.2 % (11.5-14.5) Platelet Count 269 x10^3/uL (140-400) 278 x10^3/uL (140-400) Neutrophils (%) (Auto) 78 % (31-73) 76 % (31-73) Lymphocytes (%) (Auto) 11 % (24-48) 14 % (24-48) Monocytes (%) (Auto) 10 % (0-9) 9 % (0-9) Eosinophils (%) (Auto) 0 % (0-3) 1 % (0-3) Basophils (%) (Auto) 0 % (0-3) 0 % (0-3) Neutrophils # (Auto) 9.2 x10^3/uL (1.8-7.7) 7.8 x10^3/uL (1.8-7.7) Lymphocytes # (Auto) 1.3 x10^3/uL (1.0-4.8) 1.4 x10^3/uL (1.0-4.8) Monocytes # (Auto) 1.2 x10^3/uL (0.0-1.1) 0.9 x10^3/uL (0.0-1.1) Eosinophils # (Auto) 0.0 x10^3/uL (0.0-0.7) 0.1 x10^3/uL (0.0-0.7) Basophils # (Auto) 0.0 x10^3/uL (0.0-0.2) 0.0 x10^3/uL (0.0-0.2) Sodium Level 135 mmol/L (136-145) 137 mmol/L (136-145) Potassium Level 4.1 mmol/L (3.5-5.1) 4.0 mmol/L (3.5-5.1) Chloride Level 99 mmol/L (98-107) 100 mmol/L (98-107) Carbon Dioxide Level 26 mmol/L (21-32) 28 mmol/L (21-32) Anion Gap 10 (6-14) 9 (6-14) Blood Urea Nitrogen 10 mg/dL (7-20) 9 mg/dL (7-20) Creatinine 0.7 mg/dL (0.6-1.0) 0.8 mg/dL (0.6-1.0) Estimated GFR (Cockcroft-Gault) 91.3 78.3 BUN/Creatinine Ratio 14 (6-20) Glucose Level 113 mg/dL (70-99) 105 mg/dL (70-99) Calcium Level 8.3 mg/dL (8.5-10.1) 8.4 mg/dL (8.5-10.1) Total Bilirubin 1.5 mg/dL (0.2-1.0) Aspartate Amino Transf (AST/SGOT) 21 U/L (15-37) Alanine Aminotransferase (ALT/SGPT) 40 U/L (14-59) Alkaline Phosphatase 53 U/L (46-116) Total Protein 6.6 g/dL (6.4-8.2) Albumin 3.0 g/dL (3.4-5.0) Albumin/Globulin Ratio 0.8 (1.0-1.7) Laboratory Tests Test 07/07/19 04:30 White Blood Count 10.3 x10^3/uL (4.0-11.0) Red Blood Count 4.58 x10^6/uL (3.50-5.40) Hemoglobin 14.3 g/dL (12.0-15.5) Hematocrit 42.5 % (36.0-47.0) Mean Corpuscular Volume 93 fL (79-100) Mean Corpuscular Hemoglobin 31 pg (25-35) Mean Corpuscular Hemoglobin Concent 34 g/dL (31-37) Red Cell Distribution Width 13.2 % (11.5-14.5) Platelet Count 278 x10^3/uL (140-400) Neutrophils (%) (Auto) 76 % (31-73) Lymphocytes (%) (Auto) 14 % (24-48) Monocytes (%) (Auto) 9 % (0-9) Eosinophils (%) (Auto) 1 % (0-3) Basophils (%) (Auto) 0 % (0-3) Neutrophils # (Auto) 7.8 x10^3/uL (1.8-7.7) Lymphocytes # (Auto) 1.4 x10^3/uL (1.0-4.8) Monocytes # (Auto) 0.9 x10^3/uL (0.0-1.1) Eosinophils # (Auto) 0.1 x10^3/uL (0.0-0.7) Basophils # (Auto) 0.0 x10^3/uL (0.0-0.2) Problem List Problems Medical Problems: (1) Intussusception intestine Status: Acute Assessment/Plan POD 3 ileocolic resection advance diet, activity Dr Kim to follow over the weekend NETO STONE MD July 07, 2019 13:31
[2019-07-07 15:21] VITALS: BP 146/81
--- NOTE | 2019-07-07 17:06 | PATHOLOGY ---
[facility] Accession Number: [id number] . 01 Material submitted: . colon - ILEOCOLIC RESECTION . 01 Clinical history: . Ileocolic intussusception . 02 Diagnosis: Segment of distal ileum, cecum, appendix, and ascending colon with attached mesocolon, laparoscopic assisted right colon resection: - Ileocolic intussusception, with acute ischemic changes, marked submucosal edema, and focal submucosal venous thromboses of cecum and ileocecal valve. - Proximal (distal ileum) and distal (ascending colon) margins of resection viable. - Mild adiposity of ileocecal valve. - Lymphoid hyperplasia of Peyer's patch, distal ileum. - Reactive changes of mesocolic lymph nodes. - Microscopic (Lymphocytic) colitis of cecum and ascending colon. - Appendix showing no diagnostic abnormalities. (JPM:[facility] 07/07/2019) [facility] 07/07/2019 1617 Local . 02 Comment: There is no evidence of malignancy. . 02 Electronically signed: . Aidan Márquez MD, Pathologist NPI- [id number] . 01 Gross description: . The specimen is received in formalin, labeled "Franny Dove, ileocolic resection". Received is a right hemicolectomy specimen consisting of a segment of small bowel measuring 5.8 cm in length by 1.8 cm in diameter contiguous with a segment of colon measuring 26.2 cm in length and ranges in diameter from 5.0 to 6.8 cm. Both margins are stapled closed. The serosal surface of the small bowel is pink-lopez in appearance with overlying adhesions identified. The serosal surface of the colon is pink-archer to dusky archer-brown in appearance with a moderate amount of overlying adhesions. The cecum is puckered into the colon, suggestive of intussusception. The attached pericolic fat measures up to 3.0 cm in thickness. The specimen is opened along the antimesenteric line to reveal pink-lopez to light lopez mucosa with normal architectural folds within the small bowel. The ileocecal valve is dusky pink-archer in appearance. The colonic mucosa within the cecum is dusky red-brown, edematous and firm. Intussusception is identified with the cecal pouch extending 8.1 cm up into the colon. The remainder of the colonic mucosa is pink-archer to dusky archer-lopez in appearance with moderate architectural folding. No distinct nodules or lesions are identified. The appendix is present measuring 7.8 cm in length by 0.8 cm in diameter. The serosal surface is pale lopez to dusky archer-brown appearance with a moderate amount of overlying adhesions. The appendiceal margin is inked. Sectioning through the appendix reveals a pinpoint to patent lumen. Palpation of the attached pericolic fat reveals 20 lymph nodes ranging in size from 0.3 to 1.1 cm in maximum dimensions. The specimen is submitted representatively as follows: . A1 proximal margin, en face A2 distal margin, en face A3 cross-sections of small bowel A4 ileocecal valve A5-A7 veterans service representative sections from edematous cecal mucosa from area of intussusception A8 uninvolved colonic mucosa A9 veterans service representative sections of appendix to include proximal margin and bisected tip A10-A14 intact lymph nodes. . Gross photographs are taken. (CAA; 07/06/2019) [facility] 07/06/2019 1155 Local . 02 Pathologist provided ICD-10: K56.1, R59.9, K66.0 . 02 CPT . 034625 Specimen Comment: A courtesy copy of this report has been sent to [phone], [phone] Specimen Comment: [id number], Specimen Comment: Report sent to ,DR HOWELL / DR YAO Performed at: 01 [facility] [address], [place] [id number] MD Kd Barcenas MD Phone: [phone] Performed at: 02 [facility] [address] [place], [place] [id number] MD Aidan Márquez MD Phone: [phone]
[2019-07-07 19:00] VITALS: BP 133/60
[2019-07-07] MEDS: FAMOTIDINE 20 MG TABLET. PO SCH (21:29)
[2019-07-07] MEDS: LACTOBACILLUS RHAMNOSUS GG 1 CAPSULE. PO SCH (21:29)
[2019-07-07 23:00] VITALS: BP 152/65
[2019-07-08] MEDS: IV NORMAL SALINE 1000ML BAG 1,000 ML IV SCH (00:08)
[2019-07-08] MEDS: oxyCODONE/APAP 5/325 1 TAB TABLET PO PRN ×6 (00:12→23:39)
[2019-07-08 03:00] VITALS: BP 153/97
[2019-07-08] MEDS: POTASSIUM CL 20MEQ-0.45% NACL 1,000 ML IV SCH ×2 (05:00→20:52)
[2019-07-08 07:00] VITALS: BP 146/88
[2019-07-08] MEDS: LACTOBACILLUS RHAMNOSUS GG 1 CAPSULE. PO SCH ×2 (09:02→20:52)
[2019-07-08] MEDS: ENOXAPARIN 40 MG/0.4 ML SYRINGE. SQ SCH (09:03)
[2019-07-08] MEDS ORDERED: OXYC1TAB15 PO (09:40)
--- NOTE | 2019-07-08 09:45 | PDOC3 ---
Discharge Summary Visit Information Date of Admission: July 04, 2019 Date of Discharge: July 08, 2019 Final Diagnosis Problems Medical Problems: (1) Intussusception intestine Status: Acute Brief Hospital Course Allergies Allergies Coded Allergies Type Severity Reaction Last Updated Verified Sulfa (Sulfonamide Antibiotics) Allergy Severe 06/30/19 Yes cefaclor Allergy Severe Hives 06/30/19 Yes Vital Signs Vital Signs Date Time Temp Pulse Resp B/P (MAP) Pulse Ox O2 Delivery O2 Flow Rate FiO2 07/08/19 09:03 Room Air 07/08/19 07:00 98.1 95 16 146/88 (107) 95 98.1 Lab Results Laboratory Tests Test 07/07/19 04:30 White Blood Count 10.3 x10^3/uL (4.0-11.0) Red Blood Count 4.58 x10^6/uL (3.50-5.40) Hemoglobin 14.3 g/dL (12.0-15.5) Hematocrit 42.5 % (36.0-47.0) Mean Corpuscular Volume 93 fL (79-100) Mean Corpuscular Hemoglobin 31 pg (25-35) Mean Corpuscular Hemoglobin Concent 34 g/dL (31-37) Red Cell Distribution Width 13.2 % (11.5-14.5) Platelet Count 278 x10^3/uL (140-400) Neutrophils (%) (Auto) 76 % (31-73) Lymphocytes (%) (Auto) 14 % (24-48) Monocytes (%) (Auto) 9 % (0-9) Eosinophils (%) (Auto) 1 % (0-3) Basophils (%) (Auto) 0 % (0-3) Neutrophils # (Auto) 7.8 x10^3/uL (1.8-7.7) Lymphocytes # (Auto) 1.4 x10^3/uL (1.0-4.8) Monocytes # (Auto) 0.9 x10^3/uL (0.0-1.1) Eosinophils # (Auto) 0.1 x10^3/uL (0.0-0.7) Basophils # (Auto) 0.0 x10^3/uL (0.0-0.2) Brief Hospital Course 44 year old CF with hx of cholecystectomy, endometriosis, chronic diarrhea, s/p EGD and colo with poly in cecum who presents with 24 hrs of abdominal pain in RLQ, nonradiating. denies nausea or vomitting. reports diarrhea but that has been chronic per patient. no fever. patient reports diarrhea worse when she eats. prior surgical hx: cholecystecomy, breast implants, D and C, 4 prior miscarriages, hemorrhoidectomy. CT in ED revealed the followin. There is a ileocolonic intussusception in the right lower quadrant. N definite bleed mass. No significant proximal small bowel dilation to suggest obstruction. 2. Small amount of free fluid. No pneumoperitoneum or pneumatosis. 3. Otherwise no significant abnormality. 4. Status post cholecystectomy. labs stable otherwise. gen sx consulted in ED, hospitalist called for admission. ASSESMENT Abdominal Pain secondary to Ileocolic intussusception s/p laparoscopic right colon 07/04/19 Microscopic colitis diverticulosis hemorrhoids leukocytosis, resolved elevated lfts hx of Cholecystectomy urinary frequency, bowman placed on admission now removed PLAN patient pain improved post op. tolerated procedure well. pain controlled. pain control, wean pain meds as tolerated patient repported urinary frequency. urine culture checked and negative labs stable during hospitalization per GI note: EGD and colonoscopy w/ Dr. Calderon on 06/30/19 for diarrhea and celiac rule-out showed normal esophagus, normal stomach, nodular mucosa in duodenum (biopsy negative for pathology), 5mm adenomatous cecal polyp, a few small-mouthed diverticula from sigmoid to hepatic flexure, Grade 1 non-bleeding internal hemorrhoids, and random biopsies from sigmoid to cecum were suggestive of microscopic (lymphocytic colitis) patient tolerated diet and activity. bowman is out. passing gas and stool. okay to dc today. Discharge Information Scheduled PRN Oxycodone/Apap 5-325 (Percocet 5-325 Mg Tablet ) 1 Each Tablet, 1 TAB PO PRN Q 4HRS PRN for MODERATE PAIN, SEVERE PAIN for 5 Days, #24 Prescribed by: MYKEL HOWELL MD on 07/08/19 0940 Discontinued Medications Info (No Known Medications Prior To Admisstion) Each, 1 EACH MC DAILY for D, (Reported) Entered as Reported by: MASHA RICHARDS on 06/30/19 0708 Hemodynamically unstable?: No Is patient in severe pain?: No Is NPO status required?: No MYKEL HOWELL MD July 08, 2019 09:45
--- NOTE | 2019-07-08 10:40 | PDOC ---
PROGRESS NOTES Subjective Subjective doing ok, loose stools Objective Objective Vital Signs Date Time Temp Pulse Resp B/P (MAP) Pulse Ox O2 Delivery O2 Flow Rate FiO2 07/08/19 10:11 Room Air 07/08/19 07:00 98.1 95 16 146/88 (107) 95 98.1 07/05/19 00:00 10 Intake and Output 07/08/19 07:00 # Voids 2 # Bowel Movements 1 Physical Exam Abdomen: Soft (incision good) Assessment Assessment Problems Medical Problems: (1) Intussusception intestine Status: Acute Plan Plan of Care OK to discharge, FU with Dr Kern 1-2 weeks Comment Review of Relevant I have reviewed the following items fariha (where applicable) has been applied. Labs Laboratory Tests Test 07/07/19 04:30 White Blood Count 10.3 x10^3/uL (4.0-11.0) Red Blood Count 4.58 x10^6/uL (3.50-5.40) Hemoglobin 14.3 g/dL (12.0-15.5) Hematocrit 42.5 % (36.0-47.0) Mean Corpuscular Volume 93 fL (79-100) Mean Corpuscular Hemoglobin 31 pg (25-35) Mean Corpuscular Hemoglobin Concent 34 g/dL (31-37) Red Cell Distribution Width 13.2 % (11.5-14.5) Platelet Count 278 x10^3/uL (140-400) Neutrophils (%) (Auto) 76 % (31-73) Lymphocytes (%) (Auto) 14 % (24-48) Monocytes (%) (Auto) 9 % (0-9) Eosinophils (%) (Auto) 1 % (0-3) Basophils (%) (Auto) 0 % (0-3) Neutrophils # (Auto) 7.8 x10^3/uL (1.8-7.7) Lymphocytes # (Auto) 1.4 x10^3/uL (1.0-4.8) Monocytes # (Auto) 0.9 x10^3/uL (0.0-1.1) Eosinophils # (Auto) 0.1 x10^3/uL (0.0-0.7) Basophils # (Auto) 0.0 x10^3/uL (0.0-0.2) Microbiology 07/06/19 Urine Culture - Final, Complete 07/06/19 Urine Culture Result 1 (NEHEMIAH) - Final, Complete Medications Current Medications Morphine Sulfate (Morphine Sulfate) 5 mg 1X ONCE IV Last administered on 07/04/19at 17:03; Start 07/04/19 at 16:45; Stop 07/04/19 at 16:46; Status DC Ondansetron HCl (Zofran) 4 mg 1X ONCE IVP Last administered on 07/04/19at 17:02; Start 07/04/19 at 16:45; Stop 07/04/19 at 16:46; Status DC Iohexol (Omnipaque 300 Mg/ml) 75 ml 1X ONCE IV Last administered on 07/04/19at 18:06; Start 07/04/19 at 17:45; Stop 07/04/19 at 17:46; Status DC Info (CONTRAST GIVEN -- Rx MONITORING) 1 each PRN DAILY PRN MC SEE COMMENTS; Start 07/04/19 at 18:00; Stop 07/06/19 at 17:59; Status DC Hydromorphone HCl (Dilaudid) 1 mg 1X ONCE IV Last administered on 07/04/19at 19:52; Start 07/04/19 at 19:45; Stop 07/04/19 at 19:46; Status DC Piperacillin Sod/ Tazobactam Sod 3.375 gm/Sodium Chloride 50 ml @ 100 mls/hr 1X ONCE IV Last administered on 07/04/19at 22:00; Start 07/04/19 at 20:45; Stop 07/04/19 at 21:14; Status DC Ondansetron HCl (Zofran) 4 mg PRN Q8HRS PRN IV NAUSEA/VOMITING; Start 07/04/19 at 20:45; Stop 07/05/19 at 20:44; Status DC Morphine Sulfate (Morphine Sulfate) 4 mg PRN Q2HR PRN IV PAIN; Start 07/04/19 at 20:45; Stop 07/05/19 at 20:44; Status DC Sodium Chloride 1,000 ml @ 125 mls/hr 1X ONCE IV ; Start 07/04/19 at 20:45; Stop 07/05/19 at 04:44; Status DC Propofol (Diprivan) 200 mg STK-MED ONCE IV ; Start 07/04/19 at 20:58; Stop 07/04/19 at 20:59; Status DC Lidocaine HCl (Lidocaine Pf 2% Vial) 5 ml STK-MED ONCE .ROUTE ; Start 07/04/19 at 20:58; Stop 07/04/19 at 20:59; Status DC Rocuronium Swan (Zemuron) 50 mg STK-MED ONCE .ROUTE ; Start 07/04/19 at 20:58; Stop 07/04/19 at 20:59; Status DC Fentanyl Citrate (Fentanyl 2ml Vial) 100 mcg STK-MED ONCE .ROUTE ; Start 07/04/19 at 20:58; Stop 07/04/19 at 20:59; Status DC Ondansetron HCl (Zofran) 4 mg PRN Q6HRS PRN IV NAUSEA/VOMITING 1ST CHOICE; Start 07/04/19 at 21:00; Stop 07/05/19 at 20:59; Status DC Fentanyl Citrate (Fentanyl 2ml Vial) 25 mcg PRN Q5MIN PRN IV MILD PAIN 1-3; Start 07/04/19 at 21:00; Stop 07/05/19 at 20:59; Status DC Fentanyl Citrate (Fentanyl 2ml Vial) 50 mcg PRN Q5MIN PRN IV MODERATE TO SEVERE PAIN Last administered on 07/05/19at 00:51; Start 07/04/19 at 21:00; Stop 07/05/19 at 20:59; Status DC Morphine Sulfate (Morphine Sulfate) 1 mg PRN Q10MIN PRN IV SEVERE PAIN 7-10 Last administered on 07/05/19at 00:52; Start 07/04/19 at 21:00; Stop 07/05/19 at 20:59; Status DC Ringer's Solution 1,000 ml @ 30 mls/hr Q24H IV ; Start 07/04/19 at 20:59; Stop 07/05/19 at 08:58; Status DC Lidocaine HCl (Xylocaine-Mpf 1% 2ml Vial) 2 ml PRN 1X PRN ID PRIOR TO IV START; Start 07/04/19 at 21:00; Stop 07/05/19 at 20:59; Status DC Hydromorphone HCl (Dilaudid) 0.5 mg PRN Q10MIN PRN IV SEV PAIN, Second choice; Start 07/04/19 at 21:00; Stop 07/05/19 at 20:59; Status DC Prochlorperazine Edisylate (Compazine) 5 mg PACU PRN PRN IV NAUSEA, MRX1 Last administered on 07/05/19at 01:04; Start 07/04/19 at 21:00; Stop 07/05/19 at 20:59; Status DC Bupivacaine HCl/ Epinephrine Bitart (Sensorcain-Epi 0.5%-1:909150 Mpf) 30 ml STK-MED ONCE .ROUTE Last administered on 07/04/19at 22:10; Start 07/04/19 at 21:30; Stop 07/04/19 at 21:30; Status DC Sodium Chloride 1,000 ml @ 100 mls/hr Q10H IV ; Start 07/04/19 at 22:30; Stop 07/05/19 at 11:09; Status DC Acetaminophen (Tylenol) 650 mg PRN Q4HRS PRN PO TEMP OVER 100.4F OR MILD PAIN; Start 07/04/19 at 21:30 Morphine Sulfate (Morphine Sulfate) 2 mg PRN Q2HR PRN IV MODERATE PAIN Last administered on 07/06/19at 23:37; Start 07/04/19 at 21:30 Ondansetron HCl (Zofran) 4 mg STK-MED ONCE .ROUTE ; Start 07/04/19 at 22:14; Stop 07/04/19 at 22:14; Status DC Dexamethasone Sodium Phosphate (Decadron) 4 mg STK-MED ONCE .ROUTE ; Start 07/04/19 at 22:14; Stop 07/04/19 at 22:14; Status DC Desflurane (Suprane) 60 ml STK-MED ONCE IH ; Start 07/04/19 at 22:14; Stop 07/04/19 at 22:14; Status DC Neostigmine Swan (Neostigmine Methylsulfate) 5 mg STK-MED ONCE .ROUTE ; Start 07/04/19 at 22:14; Stop 07/04/19 at 22:15; Status DC Glycopyrrolate (Robinul) 1 mg STK-MED ONCE .ROUTE ; Start 07/04/19 at 22:15; Stop 07/04/19 at 22:15; Status DC Famotidine (Pepcid Vial) 20 mg STK-MED ONCE .ROUTE ; Start 07/04/19 at 22:24; Stop 07/04/19 at 22:24; Status DC Fentanyl Citrate (Fentanyl 2ml Vial) 100 mcg STK-MED ONCE .ROUTE ; Start 07/04/19 at 22:51; Stop 07/04/19 at 22:52; Status DC Enoxaparin Sodium (Lovenox 40mg Syringe) 40 mg Q24H SQ Last administered on 07/08/19at 09:03; Start 07/05/19 at 09:00 Sodium Chloride (Normal Saline Flush) 3 ml QSHIFT PRN IV AFTER MEDS AND BLOOD DRAWS; Start 07/05/19 at 00:00 Potassium Chloride/Sodium Chloride 1,000 ml @ 60 mls/hr [id number] IV Last administered on 07/08/19at 05:00; Start 07/05/19 at 00:30 Dextrose (Dextrose 50%-Water Syringe) 12.5 gm PRN Q15MIN PRN IV SEE COMMENTS; Start 07/05/19 at 00:00 Naloxone HCl (Narcan) 0.4 mg PRN Q2MIN PRN IV SEE INSTRUCTIONS; Start 07/05/19 at 00:00 Sodium Chloride 1,000 ml @ 25 mls/hr Q24H IV Last administered on 07/05/19at 01:30; Start 07/05/19 at 00:30 Hydromorphone HCl (Dilaudid) 1 mg PRN Q3HRS PRN IV SEVERE PAIN 7-10 Last administered on 07/05/19at 22:19; Start 07/05/19 at 00:00 Ondansetron HCl (Zofran) 4 mg PRN Q6HRS PRN IVP NAUESA, 1ST CHOICE; Start 07/05/19 at 00:00 Fentanyl Citrate (Fentanyl 2ml Vial) 100 mcg STK-MED ONCE .ROUTE ; Start 07/05/19 at 00:10; Stop 07/05/19 at 00:11; Status DC Prochlorperazine Edisylate (Compazine) 10 mg STK-MED ONCE .ROUTE ; Start 07/05/19 at 00:11; Stop 07/05/19 at 00:11; Status DC Famotidine (Pepcid Vial) 20 mg QHS IVP Last administered on 07/06/19at 20:43; Start 07/05/19 at 21:00; Stop 07/07/19 at 15:02; Status DC Oxycodone/ Acetaminophen (Percocet 5/325) 1 tab PRN Q4HRS PRN PO MODERATE PAIN, SEVERE PAIN Last administered on 07/08/19at 09:03; Start 07/06/19 at 12:15 Lactobacillus Rhamnosus (Culturelle) 1 cap BID PO Last administered on 07/08/19at 09:02; Start 07/07/19 at 21:00 Famotidine (Pepcid) 20 mg QHS PO Last administered on 07/07/19at 21:29; Start 07/07/19 at 21:00 Active Scripts Active Percocet 5-325 Mg Tablet (Oxycodone/Acetaminophen) 1 Each Tablet 1 Tab PO PRN Q4HRS PRN 5 Days Vitals/I & O Vital Sign - Last 24 Hours 07/07/19 07/07/19 07/07/19 07/07/19 11:12 12:33 13:33 15:21 Temp 98.4 98.8 98.4 98.8 Pulse 80 87 Resp 16 16 B/P (MAP) 140/86 (104) 146/81 (102) Pulse Ox 96 96 97 O2 Delivery Room Air Room Air Room Air Room Air 07/07/19 07/07/19 07/07/19 07/07/19 18:03 19:00 19:00 20:15 Temp 99.2 99.2 Pulse 94 Resp 16 B/P (MAP) 133/60 (84) Pulse Ox 97 95 O2 Delivery Room Air Room Air Room Air Room Air 07/07/19 07/08/19 07/08/19 07/08/19 23:00 00:12 01:12 03:00 Temp 99.1 98.4 99.1 98.4 Pulse 81 95 Resp 16 18 B/P (MAP) 152/65 (94) 153/97 (115) Pulse Ox 97 94 O2 Delivery Room Air Room Air Room Air Room Air 07/08/19 07/08/19 07/08/19 07/08/19 05:02 06:00 07:00 08:00 Temp 98.1 98.1 Pulse 95 Resp 16 B/P (MAP) 146/88 (107) Pulse Ox 95 O2 Delivery Room Air Room Air Room Air Room Air 07/08/19 07/08/19 09:03 10:11 O2 Delivery Room Air Room Air Hemodynamically unstable?: No Is patient in severe pain?: No Is NPO status required?: No BOUBACAR BARFIELD MD July 08, 2019 10:40
[2019-07-08 11:00] VITALS: BP 121/78
--- NOTE | 2019-07-08 11:00 | NUR ---
Pt concerned about discharging without treating her UTI. Spoke to Dr. Garcia. He states the urine culture was negative so she should not need abx.
--- NOTE | 2019-07-08 13:54 | PDOC ---
G I PROGRESS NOTE Reason for Follow-up S/P deya-colectomy with intussecption Subjective Dysuria worsening this afternoon Physical Exam Lungs clear CV S1 S2 ABD +BS, soft, mild incisional tenderness Review of Relevant I have reviewed the following items fariha (where applicable) has been applied. Labs Laboratory Tests Test 07/07/19 04:30 White Blood Count 10.3 x10^3/uL (4.0-11.0) Red Blood Count 4.58 x10^6/uL (3.50-5.40) Hemoglobin 14.3 g/dL (12.0-15.5) Hematocrit 42.5 % (36.0-47.0) Mean Corpuscular Volume 93 fL (79-100) Mean Corpuscular Hemoglobin 31 pg (25-35) Mean Corpuscular Hemoglobin Concent 34 g/dL (31-37) Red Cell Distribution Width 13.2 % (11.5-14.5) Platelet Count 278 x10^3/uL (140-400) Neutrophils (%) (Auto) 76 % (31-73) Lymphocytes (%) (Auto) 14 % (24-48) Monocytes (%) (Auto) 9 % (0-9) Eosinophils (%) (Auto) 1 % (0-3) Basophils (%) (Auto) 0 % (0-3) Neutrophils # (Auto) 7.8 x10^3/uL (1.8-7.7) Lymphocytes # (Auto) 1.4 x10^3/uL (1.0-4.8) Monocytes # (Auto) 0.9 x10^3/uL (0.0-1.1) Eosinophils # (Auto) 0.1 x10^3/uL (0.0-0.7) Basophils # (Auto) 0.0 x10^3/uL (0.0-0.2) Microbiology 07/06/19 Urine Culture - Final, Complete 07/06/19 Urine Culture Result 1 (NEHEMIAH) - Final, Complete Medications Current Medications Morphine Sulfate (Morphine Sulfate) 5 mg 1X ONCE IV Last administered on 06/22 04/13at 17:03; Start 07/04/19 at 16:45; Stop 07/04/19 at 16:46; Status DC Ondansetron HCl (Zofran) 4 mg 1X ONCE IVP Last administered on 07/04/19at 17:02; Start 07/04/19 at 16:45; Stop 07/04/19 at 16:46; Status DC Iohexol (Omnipaque 300 Mg/ml) 75 ml 1X ONCE IV Last administered on 07/04/19at 18:06; Start 07/04/19 at 17:45; Stop 07/04/19 at 17:46; Status DC Info (CONTRAST GIVEN -- Rx MONITORING) 1 each PRN DAILY PRN MC SEE COMMENTS; Start 07/04/19 at 18:00; Stop 07/06/19 at 17:59; Status DC Hydromorphone HCl (Dilaudid) 1 mg 1X ONCE IV Last administered on 07/04/19at 19:52; Start 07/04/19 at 19:45; Stop 07/04/19 at 19:46; Status DC Piperacillin Sod/ Tazobactam Sod 3.375 gm/Sodium Chloride 50 ml @ 100 mls/hr 1X ONCE IV Last administered on 07/04/19at 22:00; Start 07/04/19 at 20:45; Stop 07/04/19 at 21:14; Status DC Ondansetron HCl (Zofran) 4 mg PRN Q8HRS PRN IV NAUSEA/VOMITING; Start 07/04/19 at 20:45; Stop 07/05/19 at 20:44; Status DC Morphine Sulfate (Morphine Sulfate) 4 mg PRN Q2HR PRN IV PAIN; Start 07/04/19 at 20:45; Stop 07/05/19 at 20:44; Status DC Sodium Chloride 1,000 ml @ 125 mls/hr 1X ONCE IV ; Start 07/04/19 at 20:45; Stop 07/05/19 at 04:44; Status DC Propofol (Diprivan) 200 mg STK-MED ONCE IV ; Start 07/04/19 at 20:58; Stop 07/04/19 at 20:59; Status DC Lidocaine HCl (Lidocaine Pf 2% Vial) 5 ml STK-MED ONCE .ROUTE ; Start 07/04/19 at 20:58; Stop 07/04/19 at 20:59; Status DC Rocuronium [place] (Zemuron) 50 mg STK-MED ONCE .ROUTE ; Start 07/04/19 at 20:58; Stop 07/04/19 at 20:59; Status DC Fentanyl Citrate (Fentanyl 2ml Vial) 100 mcg STK-MED ONCE .ROUTE ; Start 07/04/19 at 20:58; Stop 07/04/19 at 20:59; Status DC Ondansetron HCl (Zofran) 4 mg PRN Q6HRS PRN IV NAUSEA/VOMITING 1ST CHOICE; Start 07/04/19 at 21:00; Stop 07/05/19 at 20:59; Status DC Fentanyl Citrate (Fentanyl 2ml Vial) 25 mcg PRN Q5MIN PRN IV MILD PAIN 1-3; Start 07/04/19 at 21:00; Stop 07/05/19 at 20:59; Status DC Fentanyl Citrate (Fentanyl 2ml Vial) 50 mcg PRN Q5MIN PRN IV MODERATE TO SEVERE PAIN Last administered on 07/05/19at 00:51; Start 07/04/19 at 21:00; Stop 07/05/19 at 20:59; Status DC Morphine Sulfate (Morphine Sulfate) 1 mg PRN Q10MIN PRN IV SEVERE PAIN 7-10 Last administered on 07/05/19at 00:52; Start 07/04/19 at 21:00; Stop 07/05/19 at 20:59; Status DC Ringer's Solution 1,000 ml @ 30 mls/hr Q24H IV ; Start 07/04/19 at 20:59; Stop 07/05/19 at 08:58; Status DC Lidocaine HCl (Xylocaine-Mpf 1% 2ml Vial) 2 ml PRN 1X PRN ID PRIOR TO IV START; Start 07/04/19 at 21:00; Stop 07/05/19 at 20:59; Status DC Hydromorphone HCl (Dilaudid) 0.5 mg PRN Q10MIN PRN IV SEV PAIN, Second choice; Start 07/04/19 at 21:00; Stop 07/05/19 at 20:59; Status DC Prochlorperazine Edisylate (Compazine) 5 mg PACU PRN PRN IV NAUSEA, MRX1 Last administered on 07/05/19at 01:04; Start 07/04/19 at 21:00; Stop 07/05/19 at 20:59; Status DC Bupivacaine HCl/ Epinephrine Bitart (Sensorcain-Epi 0.5%-1:154314 Mpf) [address] K-MED ONCE .ROUTE Last administered on 07/04/19at 22:10; Start 07/04/19 at 21:30; Stop 07/04/19 at 21:30; Status DC Sodium Chloride 1,000 ml @ 100 mls/hr Q10H IV ; Start 07/04/19 at 22:30; Stop 07/05/19 at 11:09; Status DC Acetaminophen (Tylenol) 650 mg PRN Q4HRS PRN PO TEMP OVER 100.4F OR MILD PAIN; Start 07/04/19 at 21:30 Morphine Sulfate (Morphine Sulfate) 2 mg PRN Q2HR PRN IV MODERATE PAIN Last administered on 07/06/19at 23:37; Start 07/04/19 at 21:30 Ondansetron HCl (Zofran) 4 mg STK-MED ONCE .ROUTE ; Start 07/04/19 at 22:14; Stop 07/04/19 at 22:14; Status DC Dexamethasone Sodium Phosphate (Decadron) 4 mg STK-MED ONCE .ROUTE ; Start 07/04/19 at 22:14; Stop 07/04/19 at 22:14; Status DC Desflurane (Suprane) 60 ml STK-MED ONCE IH ; Start 07/04/19 at 22:14; Stop 07/04/19 at 22:14; Status DC Neostigmine [place] (Neostigmine Methylsulfate) 5 mg STK-MED ONCE .ROUTE ; Start 07/04/19 at 22:14; Stop 07/04/19 at 22:15; Status DC Glycopyrrolate (Robinul) 1 mg STK-MED ONCE .ROUTE ; Start 07/04/19 at 22:15; S top 07/04/19 at 22:15; Status DC Famotidine (Pepcid Vial) 20 mg STK-MED ONCE .ROUTE ; Start 07/04/19 at 22:24; Stop 07/04/19 at 22:24; Status DC Fentanyl Citrate (Fentanyl 2ml Vial) 100 mcg STK-MED ONCE .ROUTE ; Start 07/04/19 at 22:51; Stop 07/04/19 at 22:52; Status DC Enoxaparin Sodium (Lovenox 40mg Syringe) 40 mg Q24H SQ Last administered on 07/08/19at 09:03; Start 07/05/19 at 09:00 Sodium Chloride (Normal Saline Flush) 3 ml QSHIFT PRN IV AFTER MEDS AND BLOOD DRAWS; Start 07/05/19 at 00:00 Potassium Chloride/Sodium Chloride 1,000 ml @ 60 mls/hr [id number] IV Last administered on 07/08/19at 05:00; Start 07/05/19 at 00:30 Dextrose (Dextrose 50%-Water Syringe) 12.5 gm PRN Q15MIN PRN IV SEE COMMENTS; Start 07/05/19 at 00:00 Naloxone HCl (Narcan) 0.4 mg PRN Q2MIN PRN IV SEE INSTRUCTIONS; Start 07/05/19 at 00:00 Sodium Chloride 1,000 ml @ 25 mls/hr Q24H IV Last administered on 07/05/19at 01:30; Start 07/05/19 at 00:30 Hydromorphone HCl (Dilaudid) 1 mg PRN Q3HRS PRN IV SEVERE PAIN 7-10 Last administered on 07/05/19at 22:19; Start 07/05/19 at 00:00 Ondansetron HCl (Zofran) 4 mg PRN Q6HRS PRN IVP NAUESA, 1ST CHOICE; Start 07/05/19 at 00:00 Fentanyl Citrate (Fentanyl 2ml Vial) 100 mcg STK-MED ONCE .ROUTE ; Start 07/05/19 at 00:10; Stop 07/05/19 at 00:11; Status DC Prochlorperazine Edisylate (Compazine) 10 mg STK-MED ONCE .ROUTE ; Start 07/05/19 at 00:11; Stop 07/05/19 at 00:11; Status DC Famotidine (Pepcid Vial) 20 mg QHS IVP Last administered on 07/06/19at 20:43; Start 07/05/19 at 21:00; Stop 07/07/19 at 15:02; Status DC Oxycodone/ Acetaminophen (Percocet 5/325) 1 tab PRN Q4HRS PRN PO MODERATE PAIN, SEVERE PAIN Last administered on 07/08/19at 09:03; Start 07/06/19 at 12:15 Lactobacillus Rhamnosus (Culturelle) 1 cap BID PO Last administered on 07/08/19at 09:02; Start 07/07/19 at 21:00 Famotidine (Pepcid) 20 mg QHS PO Last administered on 07/07/19at 21:29; Start 07/07/19 at 21:00 Active Scripts Active Percocet 5-325 Mg Tablet (Oxycodone/Acetaminophen) 1 Each Tablet 1 Tab PO PRN Q4HRS PRN 5 Days Vitals/I & O Vital Sign - Last 24 Hours 07/07/19 07/07/19 07/07/19 07/07/19 15:21 18:03 19:00 19:00 Temp 98.8 99.2 98.8 99.2 Pulse 87 94 Resp 16 16 B/P (MAP) 146/81 (102) 133/60 (84) Pulse Ox 97 97 95 O2 Delivery Room Air Room Air Room Air Room Air 07/07/19 07/07/19 07/08/19 07/08/19 20:15 23:00 00:12 01:12 Temp 99.1 99.1 Pulse 81 Resp 16 B/P (MAP) 152/65 (94) Pulse Ox 97 O2 Delivery Room Air Room Air Room Air Room Air 07/08/19 07/08/19 07/08/19 07/08/19 03:00 05:02 06:00 07:00 Temp 98.4 98.1 98.4 98.1 Pulse 95 95 Resp 18 16 B/P (MAP) 153/97 (115) 146/88 (107) Pulse Ox 94 95 O2 Delivery Room Air Room Air Room Air Room Air 07/08/19 07/08/19 07/08/19 07/08/19 08:00 09:03 10:11 11:00 Temp 98.1 98.1 Pulse 78 Resp 18 B/P (MAP) 121/78 (92) Pulse Ox 97 O2 Delivery Room Air Room Air Room Air Room Air Problem List Problems Medical Problems: (1) Intussusception intestine Status: Acute Assessment S/P partial colectomy- with persistent dysuria, UTIU likely, await UA. Antibiotics will likely be needed for symptomatic relief. Hemodynamically unstable?: No Is patient in severe pain?: No Is NPO status required?: No BOUBACAR LOPEZ MD July 08, 2019 13:54
--- NOTE | 2019-07-08 14:00 | NUR ---
Received orders for UA. Will update patient of POC.
[2019-07-08 14:22] LABS: BILIRUBIN,URINE NEGATIVE (NEG); CLARITY,URINE CLEAR; COLOR,URINE YELLOW; NITRITE,URINE NEGATIVE (NEG); PROTEIN,URINE 30 mg/dL (NEG-TRACE); UROBILINOGEN,URINE 0.2 mg/dL (0.2 mg/dL)
[2019-07-08 14:29] LABS: RBC,URINE TNTC /HPF (0-2)
[2019-07-08 14:30] LABS: AMORPHOUS SEDIMENT,UR PRESENT /HPF; BACTERIA,URINE MODERATE /HPF (0-FEW); SQUAMOUS EPITHELIAL CELL,UR MOD /LPF; WBC,URINE TNTC /HPF (0-4)
[2019-07-08 15:00] VITALS: BP 134/68
[2019-07-08] MEDS ORDERED: PHEN100T82 PO (15:55)
[2019-07-08] MEDS ORDERED: NITR100C PO (15:55)
--- NOTE | 2019-07-08 16:00 | NUR ---
Spoke to Dr. Crane regarding UA. Received orders for Pyridium and Macrobid. He spoke to the patient and provided her an update.
[2019-07-08 19:00] VITALS: BP 137/54
[2019-07-08] MEDS: PHENAZOPYRIDINE 200 MG TABLET. PO PRN (19:47)
[2019-07-08] MEDS: NITROFURANTOIN MONOHYD/M-CRYST 100 MG CAPSULE. PO SCH (20:52)
[2019-07-08] MEDS: FAMOTIDINE 20 MG TABLET. PO SCH (20:52)
[2019-07-08 23:00] VITALS: BP 141/52
[2019-07-09] MEDS: IV NORMAL SALINE 1000ML BAG 1,000 ML IV SCH (00:30)
[2019-07-09] MEDS: oxyCODONE/APAP 5/325 1 TAB TABLET PO PRN ×3 (04:17→12:20)
[2019-07-09 07:00] VITALS: BP 119/60
[2019-07-09] MEDS: PHENAZOPYRIDINE 200 MG TABLET. PO PRN (08:25)
[2019-07-09] MEDS: LACTOBACILLUS RHAMNOSUS GG 1 CAPSULE. PO SCH (08:25)
[2019-07-09] MEDS: NITROFURANTOIN MONOHYD/M-CRYST 100 MG CAPSULE. PO SCH (08:25)
[2019-07-09] MEDS: ENOXAPARIN 40 MG/0.4 ML SYRINGE. SQ SCH (08:27)
[2019-07-09 11:00] VITALS: BP 126/75
--- NOTE | 2019-07-09 11:03 | PDOC ---
PROGRESS NOTES Chief Complaint Chief Complaint DISCHARGE DX pain improved. ready to start diet. has not gotten out of bed much. bowman still in place. OK to discharge, FU with Dr Kern 1-2 weeks d/c planning 26 min History of Present Illness History of Present Illness DISCHARGE DX Abdominal Pain secondary to Ileocolic intussusception s/p laparoscopic right colon 07/04/19 ileocolonic intussusception in the right lower quadrant. No definite bleed mass. No significant proximal small bowel dilation to suggest obstruction. Microscopic colitis diverticulosis hemorrhoids leukocytosis, resolved elevated lfts hx of Cholecystectomy urinary frequency, bowman placed on admission PLAN post op sx plans per gen sx advance diet as tolerated pain control, wean pain meds as tolerated check urine culture, defer abx for now patient does not have LALA labs stable dvt ppx when okay with sx full code PO MACROBID 100MG BID per GI note: EGD and colonoscopy w/ Dr. Calderon on 06/30/19 for diarrhea and celiac rule-out showed normal esophagus, normal stomach, nodular mucosa in duodenum (biopsy negative for pathology), 5mm adenomatous cecal polyp, a few small-mouthed diverticula from sigmoid to hepatic flexure, Grade 1 non-bleeding internal hemorrhoids, and random biopsies from sigmoid to cecum were suggestive of microscopic (lymphocytic colitis) Vitals Vitals Vital Signs Date Time Temp Pulse Resp B/P (MAP) Pulse Ox O2 Delivery O2 Flow Rate FiO2 07/09/19 09:26 Room Air 07/09/19 07:00 98.3 90 16 119/60 (79) 97 98.3 Physical Exam General: Alert, Oriented X3, Cooperative, No acute distress Heart: Other (increased rate) Abdomen: Normal bowel sounds, Soft (incision good), No masses Skin: Other (warm, dry) Labs LABS REASON: abd pain X 1 DAY PROCEDURE: CT ABD PELV W/ IV CONTRST ONLY CT abdomen pelvis with contrast dated 07/04/2019. No comparison available. CLINICAL INDICATION: Chronic diarrhea and abdominal pain for one day. TECHNIQUE: Contiguous axial imaging the abdomen and pelvis performed after the administration of 75 cc Omnipaque 300. One or more of the following individualized dose reduction techniques were utilized for this examination: 1. Automated exposure control 2. Adjustment of the mA and/or kV according to patient size 3. Use of iterative reconstruction technique. FINDINGS: Limited images of lung bases are clear. Heart size within normal limits. No pleural or pericardial effusion. Liver, spleen, pancreas, adrenal glands and kidneys are unremarkable. No hydronephrosis. The gallbladder surgically absent. There is a ileocolonic intussusception in the right upper quadrant. No definite bleed mass. The appendix is normal in caliber. The ileocolic vessels are displaced into the intussusceptum no adjacent fluid collection or pneumatosis. No portal venous gas or pneumoperitoneum. GI tract is otherwise normal in caliber. No significant small bowel dilation. No wall thickening or mesenteric inflammatory stranding. No lymphadenopathy or ascites. Images of the pelvis show nondistended urinary bladder. Uterus and adnexa are unremarkable. Small amount of free fluid. No pelvic lymphadenopathy. Bone windows show no acute findings. IMPRESSION: 1. There is a ileocolonic intussusception in the right lower quadrant. No definite bleed mass. No significant proximal small bowel dilation to suggest obstruction. 2. Small amount of free fluid. No pneumoperitoneum or pneumatosis. 3. Otherwise no significant abnormality. 4. Status post cholecystectomy. Electronically signed by: Filemon Whitfield MD (07/04/2019 6:17 PM) [facility] [place] DICTATED and SIGNED BY: FILEMON WHITFIELD MD DATE: 07/04/191816 Laboratory Tests Test 07/08/19 13:20 Urine Collection Type Unknown Urine Color Yellow Urine Clarity Clear Urine pH 6.0 (<5.0-8.0) Urine Specific [place] 1.010 (1.000-1.030) Urine Protein 30 mg/dL (NEG-TRACE) Urine Glucose (UA) Negative mg/dL (NEG) Urine Ketones (Stick) Negative mg/dL (NEG) Urine Blood Large (NEG) Urine Nitrite Negative (NEG) Urine Bilirubin Negative (NEG) Urine Urobilinogen Dipstick 0.2 mg/dL (0.2 mg/dL) Urine Leukocyte Esterase Moderate (NEG) Urine RBC Tntc /HPF (0-2) Urine WBC Tntc /HPF (0-4) Urine Squamous Epithelial Cells Mod /LPF Urine Amorphous Sediment Present /HPF Urine Bacteria Moderate /HPF (0-FEW) Assessment and Plan Assessmemt and Plan Problems Medical Problems: (1) Intussusception intestine Status: Acute Comment Review of Relevant I have reviewed the following items fariha (where applicable) has been applied. Labs Laboratory Tests Test 07/08/19 13:20 Urine Collection Type Unknown Urine Color Yellow Urine Clarity Clear Urine pH 6.0 (<5.0-8.0) Urine Specific [place] 1.010 (1.000-1.030) Urine Protein 30 mg/dL (NEG-TRACE) Urine Glucose (UA) Negative mg/dL (NEG) Urine Ketones (Stick) Negative mg/dL (NEG) Urine Blood Large (NEG) Urine Nitrite Negative (NEG) Urine Bilirubin Negative (NEG) Urine Urobilinogen Dipstick 0.2 mg/dL (0.2 mg/dL) Urine Leukocyte Esterase Moderate (NEG) Urine RBC Tntc /HPF (0-2) Urine WBC Tntc /HPF (0-4) Urine Squamous Epithelial Cells Mod /LPF Urine Amorphous Sediment Present /HPF Urine Bacteria Moderate /HPF (0-FEW) Laboratory Tests Test 07/08/19 13:20 Urine Collection Type Unknown Urine Color Yellow Urine Clarity Clear Urine pH 6.0 (<5.0-8.0) Urine Specific [place] 1.010 (1.000-1.030) Urine Protein 30 mg/dL (NEG-TRACE) Urine Glucose (UA) Negative mg/dL (NEG) Urine Ketones (Stick) Negative mg/dL (NEG) Urine Blood Large (NEG) Urine Nitrite Negative (NEG) Urine Bilirubin Negative (NEG) Urine Urobilinogen Dipstick 0.2 mg/dL (0.2 mg/dL) Urine Leukocyte Esterase Moderate (NEG) Urine RBC Tntc /HPF (0-2) Urine WBC Tntc /HPF (0-4) Urine Squamous Epithelial Cells Mod /LPF Urine Amorphous Sediment Present /HPF Urine Bacteria Moderate /HPF (0-FEW) Microbiology 07/06/19 Urine Culture - Final, Complete 07/06/19 Urine Culture Result 1 (NEHEMIAH) - Final, Complete Medications Current Medications Morphine Sulfate (Morphine Sulfate) 5 mg 1X ONCE IV Last administered on 07/04/19at 17:03; Start 07/04/19 at 16:45; Stop 07/04/19 at 16:46; Status DC Ondansetron HCl (Zofran) 4 mg 1X ONCE IVP Last administered on 07/04/19at 17:02; Start 07/04/19 at 16:45; Stop 07/04/19 at 16:46; Status DC Iohexol (Omnipaque 300 Mg/ml) 75 ml 1X ONCE IV Last administered on 07/04/19at 18:06; Start 07/04/19 at 17:45; Stop 07/04/19 at 17:46; Status DC Info (CONTRAST GIVEN -- Rx MONITORING) 1 each PRN DAILY PRN MC SEE COMMENTS; Start 07/04/19 at 18:00; Stop 07/06/19 at 17:59; Status DC Hydromorphone HCl (Dilaudid) 1 mg 1X ONCE IV Last administered on 07/04/19at 19:52; Start 07/04/19 at 19:45; Stop 07/04/19 at 19:46; Status DC Piperacillin Sod/ Tazobactam Sod 3.375 gm/Sodium Chloride 50 ml @ 100 mls/hr 1X ONCE IV Last administered on 07/04/19at 22:00; Start 07/04/19 at 20:45; Stop 07/04/19 at 21:14; Status DC Ondansetron HCl (Zofran) 4 mg PRN Q8HRS PRN IV NAUSEA/VOMITING; Start 07/04/19 at 20:45; Stop 07/05/19 at 20:44; Status DC Morphine Sulfate (Morphine Sulfate) 4 mg PRN Q2HR PRN IV PAIN; Start 07/04/19 at 20:45; Stop 07/05/19 at 20:44; Status DC Sodium Chloride 1,000 ml @ 125 mls/hr 1X ONCE IV ; Start 07/04/19 at 20:45; Stop 07/05/19 at 04:44; Status DC Propofol (Diprivan) 200 mg STK-MED ONCE IV ; Start 07/04/19 at 20:58; Stop 06/22 04/13 at 20:59; Status DC Lidocaine HCl (Lidocaine Pf 2% Vial) 5 ml STK-MED ONCE .ROUTE ; Start 07/04/19 at 20:58; Stop 07/04/19 at 20:59; Status DC Rocuronium [place] (Zemuron) 50 mg STK-MED ONCE .ROUTE ; Start 07/04/19 at 20:58; Stop 07/04/19 at 20:59; Status DC Fentanyl Citrate (Fentanyl 2ml Vial) 100 mcg STK-MED ONCE .ROUTE ; Start 07/04/19 at 20:58; Stop 07/04/19 at 20:59; Status DC Ondansetron HCl (Zofran) 4 mg PRN Q6HRS PRN IV NAUSEA/VOMITING 1ST CHOICE; Start 07/04/19 at 21:00; Stop 07/05/19 at 20:59; Status DC Fentanyl Citrate (Fentanyl 2ml Vial) 25 mcg PRN Q5MIN PRN IV MILD PAIN 1-3; Start 07/04/19 at 21:00; Stop 07/05/19 at 20:59; Status DC Fentanyl Citrate (Fentanyl 2ml Vial) 50 mcg PRN Q5MIN PRN IV MODERATE TO SEVERE PAIN Last administered on 07/05/19at 00:51; Start 07/04/19 at 21:00; Stop 07/05/19 at 20:59; Status DC Morphine Sulfate (Morphine Sulfate) 1 mg PRN Q10MIN PRN IV SEVERE PAIN 7-10 Last administered on 07/05/19at 00:52; Start 07/04/19 at 21:00; Stop 07/05/19 at 20:59; Status DC Ringer's Solution 1,000 ml @ 30 mls/hr Q24H IV ; Start 07/04/19 at 20:59; Stop 07/05/19 at 08:58; Status DC Lidocaine HCl (Xylocaine-Mpf 1% 2ml Vial) 2 ml PRN 1X PRN ID PRIOR TO IV START; Start 07/04/19 at 21:00; Stop 07/05/19 at 20:59; Status DC Hydromorphone HCl (Dilaudid) 0.5 mg PRN Q10MIN PRN IV SEV PAIN, Second choice; Start 07/04/19 at 21:00; Stop 07/05/19 at 20:59; Status DC Prochlorperazine Edisylate (Compazine) 5 mg PACU PRN PRN IV NAUSEA, MRX1 Last administered on 07/05/19at 01:04; Start 07/04/19 at 21:00; Stop 07/05/19 at 20:59; Status DC Bupivacaine HCl/ Epinephrine Bitart (Sensorcain-Epi 0.5%-1:932540 Mpf) 30 ml STK-MED ONCE .ROUTE Last administered on 5/12/20at 22:10; Start 07/04/19 at 21:30; Stop 07/04/19 at 21:30; Status DC Sodium Chloride 1,000 ml @ 100 mls/hr Q10H IV ; Start 07/04/19 at 22:30; Stop 07/05/19 at 11:09; Status DC Acetaminophen (Tylenol) 650 mg PRN Q4HRS PRN PO TEMP OVER 100.4F OR MILD PAIN; Start 07/04/19 at 21:30 Morphine Sulfate (Morphine Sulfate) 2 mg PRN Q2HR PRN IV MODERATE PAIN Last administered on 07/06/19at 23:37; Start 07/04/19 at 21:30 Ondansetron HCl (Zofran) 4 mg STK-MED ONCE .ROUTE ; Start 07/04/19 at 22:14; Stop 07/04/19 at 22:14; Status DC Dexamethasone Sodium Phosphate (Decadron) 4 mg STK-MED ONCE .ROUTE ; Start 07/04/19 at 22:14; Stop 07/04/19 at 22:14; Status DC Desflurane (Suprane) 60 ml STK-MED ONCE IH ; Start 07/04/19 at 22:14; Stop 07/04/19 at 22:14; Status DC Neostigmine [place] (Neostigmine Methylsulfate) 5 mg STK-MED ONCE .ROUTE ; Start 07/04/19 at 22:14; Stop 07/04/19 at 22:15; Status DC Glycopyrrolate (Robinul) 1 mg STK-MED ONCE .ROUTE ; Start 07/04/19 at 22:15; Stop 07/04/19 at 22:15; Status DC Famotidine (Pepcid Vial) 20 mg STK-MED ONCE .ROUTE ; Start 07/04/19 at 22:24; Stop 07/04/19 at 22:24; Status DC Fentanyl Citrate (Fentanyl 2ml Vial) 100 mcg STK-MED ONCE .ROUTE ; Start 07/04/19 at 22:51; Stop 07/04/19 at 22:52; Status DC Enoxaparin Sodium (Lovenox 40mg Syringe) 40 mg Q24H SQ Last administered on 07/09/19at 08:27; Start 07/05/19 at 09:00 Sodium Chloride (Normal Saline Flush) 3 ml QSHIFT PRN IV AFTER MEDS AND BLOOD DRAWS; Start 07/05/19 at 00:00 Potassium Chloride/Sodium Chloride 1,000 ml @ 60 mls/hr [id number] IV Last administered on 07/08/19at 20:52; Start 07/05/19 at 00:30 Dextrose (Dextrose 50%-Water Syringe) 12.5 gm PRN Q15MIN PRN IV SEE COMMENTS; Start 07/05/19 at 00:00 Naloxone HCl (Narcan) 0.4 mg PRN Q2MIN PRN IV SEE INSTRUCTIONS; Start 07/05/19 at 00:00 Sodium Chloride 1,000 ml @ 25 mls/hr Q24H IV Last administered on 07/05/19at 01:30; Start 07/05/19 at 00:30 Hydromorphone HCl (Dilaudid) 1 mg PRN Q3HRS PRN IV SEVERE PAIN 7-10 Last administered on 07/05/19at 22:19; Start 07/05/19 at 00:00 Ondansetron HCl (Zofran) 4 mg PRN Q6HRS PRN IVP NAUESA, 1ST CHOICE; Start 07/05/19 at 00:00 Fentanyl Citrate (Fentanyl 2ml Vial) 100 mcg STK-MED ONCE .ROUTE ; Start 07/05/19 at 00:10; Stop 07/05/19 at 00:11; Status DC Prochlorperazine Edisylate (Compazine) 10 mg STK-MED ONCE .ROUTE ; Start 07/05/19 at 00:11; Stop 07/05/19 at 00:11; Status DC Famotidine (Pepcid Vial) 20 mg QHS IVP Last administered on 07/06/19at 20:43; Start 07/05/19 at 21:00; Stop 07/07/19 at 15:02; Status DC Oxycodone/ Acetaminophen (Percocet 5/325) 1 tab PRN Q4HRS PRN PO MODERATE PAIN, SEVERE PAIN Last administered on 07/09/19at 08:26; Start 07/06/19 at 12:15 Lactobacillus Rhamnosus (Culturelle) 1 cap BID PO Last administered on 07/09/19at 08:25; Start 07/07/19 at 21:00 Famotidine (Pepcid) 20 mg QHS PO Last administered on 07/08/19at 20:52; Start 07/07/19 at 21:00 Phenazopyridine HCl (Pyridium) 100 mg PRN TID PRN PO URINARY PAIN Last administered on 07/09/19at 08:25; Start 07/08/19 at 18:00 Nitrofurantoin Macrocrystals (Macrobid) 100 mg BID PO Last administered on 07/09/19at 08:25; Start 07/08/19 at 21:00 Active Scripts Active Pyridium (Phenazopyridine Hcl) 100 Mg Tablet 1 Tab PO TID 3 Days Nitrofurantoin (Nitrofurantoin Macrocrystal) 100 Mg Capsule 1 Cap PO BID 3 Days Percocet 5-325 Mg Tablet (Oxycodone/Acetaminophen) 1 Each Tablet 1 Tab PO PRN Q4HRS PRN 5 Days Vitals/I & O Vital Sign - Last 24 Hours 07/08/19 07/08/19 07/08/19 07/08/19 15:00 15:27 16:30 19:00 Temp 98.2 98.1 98.2 98.1 Pulse 77 78 Resp 16 18 B/P (MAP) 134/68 (90) 137/54 (81) Pulse Ox 98 99 O2 Delivery Room Air Room Air Room Air Room Air 07/08/19 07/08/19 07/08/19 07/08/19 19:37 20:00 20:37 23:00 Temp 98.0 98.0 Pulse 72 Resp 18 B/P (MAP) 141/52 (81) Pulse Ox 98 98 97 O2 Delivery Room Air Room Air Room Air Room Air 07/08/19 07/09/19 07/09/19 07/09/19 23:39 00:39 04:17 05:17 Pulse Ox 97 97 97 97 O2 Delivery Room Air Room Air Room Air Room Air 07/09/19 07/09/19 07/09/19 07/09/19 07:00 08:00 08:26 09:26 Temp 98.3 98.3 Pulse 90 Resp 16 B/P (MAP) 119/60 (79) Pulse Ox 97 O2 Delivery Room Air Room Air Room Air Room Air Hemodynamically unstable?: No Is patient in severe pain?: No Is NPO status required?: No EMILEE DENTON MD July 09, 2019 11:02
--- NOTE | 2019-07-09 11:20 | DISCH ---
DISCHARGE INSTRUCTIONS Condition on Discharge Condition on Discharge: Stable Activity After Discharge Activity Instructions for Disc: Activity as tolerated, Avoid exertion Other activity instructions: Ok to shower. Do not drive while taking pain meds. Bathing Instructions: No Tub Bath until see Lifting Instructions after Dis: No heavy lifting, No pulling or pushing Driving Instructions after Dis: Do not drive Diet after Discharge Diet after Discharge: GI Soft Wound Incision Care Wound/Incision Care: May get incision wet, No wound care needed Checks after Discharge Checks after discharge: Check blood press - daily DC Comment: Diet as tolerated Contacting the after DC Call your doctor for: If your condition worsens Follow-Up Follow Up With: DR. STONE 1-2 weeks [phone] Treatment/Equipment after DC Adaptive Equipment Issued: EMILEE Pfeiffer MD July 09, 2019 11:20
--- NOTE | 2019-07-09 13:23 | NUR ---
Pt discharging home with self care. Discharge instructions and prescriptions discussed. Pt verbalized understanding. IV removed. Assisted pt to wheelchair and secured her in car with friend at ER entrance.
== END 2019-07-09 12:30 | disposition home or self-care (01) | DRG 330 ==
LOC: ER 15:51 → 4 NORTH 20:00
PROVIDERS: ADMIT Internal Medicine; ATTEND Internal Medicine
PROC: 0DTF4ZZ Resection of Right Large Intestine, Percutaneous Endoscopic Approach (ICD-10-PCS; principal; 2019-07-04 22:00)
DX: K56.1 Intussusception (principal); N17.9 Acute kidney failure, unspecified; F17.210 Nicotine dependence, cigarettes, uncomplicated; K52.839 Microscopic colitis, unspecified; K52.9 Noninfective gastroenteritis and colitis, unspecified; K56.7 Ileus, unspecified; K57.90 Diverticulosis of intestine, part unspecified, without perforation or abscess without bleeding; K63.5 Polyp of colon; K64.9 Unspecified hemorrhoids; N80.9 Endometriosis, unspecified; Z87.19 Personal history of other diseases of the digestive system
CPT/HCPCS: 36415; 74018; 74177; 80048; 80053; 80307; 81001; 81025; 83690; 85025; 87086; 93005; 96374; 96375; 99285; G0480; J0780; J1100; J1170; J1650; J2270; J2405; J2543; J2704; J2710; J3010; J3480; J3490; J7030; J7120; Q9967; 97116-GP; G0378

== ENCOUNTER → 2020-08-13 | Outpatient (CLI) | payer BC ==
[~2020-08-13] MED LIST changes: -IV RINGERS,LACTATED 1000ML 1,000 ML IV SCH; +NITR100C PO; +OXYC1TAB15 PO; +PHEN100T82 PO; -PIPERACILLIN/TAZOBACTAM 3.375 GM in IV NORMAL SALINE 50ML 50 ML IV ONE; -PROPOFOL 10 MG/ML (20ML) VIAL. IV ONE
--- NOTE | 2020-08-13 16:10 | KCIC ---
Bilateral digital screening mammograms: Reason for examination: Routine baseline screening. Interpretation was made with the benefit of CAD. The skin and nipples show no abnormalities. No abnormal axillary lymph nodes are seen. Bilateral fernanda [address] implants are present and appear to be intact The breast parenchyma is extremely dense. (Breast den sity: Category D.) There is a nodular asymmetry posterior superiorly in the left breast seen on obliq ue view which appears to measure approximately 1 cm in size. This may represent an intramammary lymph node but further evaluation with ultrasound is recommended. There are no other dominant masses, susp icious calcifications or architectural distortion. Impression: 1 cm nodular density seen posterior superiorly in the left breast on oblique view only. Recommend fur ther evaluation with ultrasound. Your patient's mammogram demonstrates that she has dense breast tissue (breast density category C or D), which could hide abnormalities, and if she has other risk factors for breast cancer that have bee n identified, she might benefit from supplemental screening tests that may be suggested by you as her ordering physician. Dense breast tissue, in and of itself, is a relatively common condition. Therefo re, this information is not provided to cause undue concern, but rather to raise your awareness and t o promote discussion with your patient regarding the presence of other risk factors, in addition to d ense breast tissue. Your patient's mammography results will be sent to her. BI-RAD Category 0: Incomplete. Needs additional imaging evaluation. "Our facility is accredited by the [employer] Mammography [employer]." This patient's information has been entered into a reminder system for the patient to be notified wit h the results of her examination and a target date for the next mammogram. Electronically signed by: Anahi Kohli MD (08/13/2020 4:07 PM) [email or web address]
== END ==
LOC: KCIC MAMMO 10:21
PROVIDERS: ATTEND Obstetrics & Gynecology
DX: Z12.31 Encounter for screening mammogram for malignant neoplasm of breast (principal)
CPT/HCPCS: 77067

== ENCOUNTER → 2020-09-03 | Outpatient (CLI) | payer BC ==
--- NOTE | 2020-09-03 11:25 | KCIC ---
Left breast ultrasound: Reason for examination: Nodular density posterior superiorly in the left breast on mammographic exam. Comparison is made to mammographic exam dated 08/13/2020. Ultrasound examination of the left breast and axilla was performed. At the 1:30 position 8 cm from the nipple, there is a hypoechoic circumscribed lesion in parallel laurent entation measuring 10 x 9.2 mm in greatest dimension. This may represent a fibroadenoma. There is als o a small nodule consistent with a intramammary lymph node at the axillary tail measuring 4.6 mm in g reatest dimension. No other nodules are seen in the upper outer quadrant. No abnormal appearing lymph nodes are seen in the axilla. IMPRESSION: 10 x 9.2 mm benign-appearing circumscribed nodule at the 1:30 position of the left breast which appea rs corresponding with the area of mammographic concern. This may represent a fibroadenoma. Recommend reevaluation in 3 months. BI-RADS Category 3: Probably Benign. "Our facility is accredited by the [employer] Mammography [employer]." This patient's information has been entered into a reminder system for the patient to be notified wit h the results of her examination and a target date for the next mammogram. Electronically signed by: Anahi Kohli MD (09/03/2020 11:22 AM) [email or web address]
== END ==
LOC: KCIC US 10:46
PROVIDERS: ATTEND Nurse Practitioner Women's Health
DX: R92.8 Other abnormal and inconclusive findings on diagnostic imaging of breast (principal); N64.89 Other specified disorders of breast
CPT/HCPCS: 76641

== ENCOUNTER → 2021-01-09 | Outpatient (CLI) | payer BC ==
--- NOTE | 2021-01-09 11:21 | KCIC ---
Left breast ultrasound: Reason for examination: Follow-up for nodular density. Comparison is made to ultrasound examination dated 09/03/2020 and mammographic exam dated 08/13/2020. Left whole breast ultrasound including evaluation of all 4 quadrants and the retroareolar and axillar y regions of the left breast was performed. At the 1:30 position 8 cm from the nipple, there continues to be a small focus of decreased echogenic ity adjacent to the implant. This appears to be stable. There are no new masses seen. No abnormal noel earing lymph nodes are seen in the axilla. IMPRESSION: Continued presence of a small hypoechoic focus of parenchymal at the 1:30 position. This is stable an d may represent a focus of isolated fibroglandular tissue. No suspicious-appearing lesions are seen. Recommend routine mammographic follow-up. BI-RADS Category 2: Benign. "Our facility is accredited by the [employer] Mammography [employer]." This patient's information has been entered into a reminder system for the patient to be notified wit h the results of her examination and a target date for the next mammogram. Electronically signed by: Anaih Kohli MD (01/09/2021 11:19 AM) [email or web address]
== END ==
LOC: KCIC US 10:18
PROVIDERS: ATTEND Obstetrics & Gynecology
DX: R92.8 Other abnormal and inconclusive findings on diagnostic imaging of breast (principal)
CPT/HCPCS: 76641